=== PATIENT | female | born 1945 | race Caucasian/White ===

== ENCOUNTER 2023-06-19 10:58 | Outpatient (AMB) | payer MEDICARE, SELFPAY ==
[2023-06-19 11:08] VITALS: BP 124/70; BMI 15.1
--- NOTE | 2023-06-19 11:08 | A.OFFVIS_ITS ---
Intake Vital Signs 06/19/23 11:08 Height 5 ft 9 in Weight 102 lb 8 oz BMI 15.1 BP 124/70 Blood Pressure Location Rt brachial Position Sitting Intake Visit Reasons: ENP-Worsening Memory Loss-confirmed Intake Note: Patient presents for evaluation for memory loss Allergies No Known Allergies Allergy (Verified 06/19/23 11:09) Medication List - Last Reconciled 06/19/23 by Jelly Marcus MD alendronate 70 mg PO QWEEK aspirin 81 mg PO DAILY calcium carbonate 800 mg PO DAILY mirtazapine 7.5 mg PO BEDTIME simvastatin 10 mg PO BEDTIME HPI HPI Comments History of Present Illness Details 77y/o female comes for evaluation of memory issues. she is accompanied by her niece who says she has short term memory issues since 2019. She lives alone and her nephews have noticed that her mail was piling up. she was not paying bills, stopped cooking , confusion with dates, forgets to take medications. 1 year ago she gave her financial responsibilities to her nephew.She still drives. she has gotten lost a few times. she drives locally. she has trouble understanding conversations sometimes.she forgets to eat and has lost of weight. she has depression. [facility] Medical History (Updated 06/19/23 @ 11:45 by Jelly Marcus MD) Anxiety Chronic bronchitis CKD (chronic kidney disease) Cognitive disorder Depression Diverticulosis Hyperlipidemia Osteoporosis PVD (peripheral vascular disease) Smoker Thrombocytosis Surgical History Hx of colonoscopy Family History Sister CAD (coronary artery disease) Father Melanoma Myocardial infarct Brother CHF (congestive heart failure) COPD (chronic obstructive pulmonary disease) Social History Alcohol intake: never Patient Tobacco Use Status: Current everyday Tobacco user Physical Exam Vital Signs: Last Vital Signs BP 124/70 06/19/23 11:08 BMI result Body Mass Index 15.1 Const General: cooperative, comfortable and no acute distress Nutritional Appearance: thin Orientation/consciousness: oriented to person, oriented to place and oriented to time Neuro General: oriented to person, oriented to place, oriented to time, tone normal and moves all extremities Cranial nerves: Yes Facial sensation intact/muscles of mastication intact, Yes Nystagmus not present and Yes Normal facial strength present Cognition (Neuro): abnormal cognition Gait exam (Neuro): Normal gait present Motor exam (neuro): 5/5 motor strength present throughout and Normal motor muscle tone present throughout Deep tendon reflexes (DTR's): Right triceps reflex intensity grade: 1+, Left triceps reflex intensity grade: 1+, Rt Biceps (C5, C6): 2+, Left biceps reflex intensity grade: 2+, Right brachioradialis reflex intensity grade: 2+, Left brachioradialis reflex intensity grade: 2+, Right patellar reflex intensity grade: 2+ and Left patellar reflex intensity grade: 2+ Psych Affect: Anxious affect present Orientation What is the (year) (season) (date) (day) (month)?: year, season, date, day and month Where are we (state) (county) (town or city) (hospital) (floor)?: state, town or city and hospital/clinic Registration Name of 3 unrelated objects clearly and slowly, then ask patient to repeat all 3 of them. (1st repeat determines score. Make sure they can repeat all three): object 1, object 2 and object 3 Attention & Calculation (CHOOSE ONE) Spell WORLD backwards (DLROW): 1 letter Recall Ask patient to repeat the 3 items from question #3.: object 1 Language Show patient a wristwatch & ask what it is. Repeat for pencil.: watch and pencil Ask the patient to repeat the phrase 'No ifs, ands, or buts' after you.: correct Ask the patient to 'take a piece of paper with their right hand' 'fold paper in half' 'place paper on floor': take paper in right hand and fold paper in half Print the sentence 'CLOSE YOUR EYES' on a piece. If patient actually closes eyes then score.: followed written direction Give patient a blank piece of paper & ask to write a sentence. Score if it contains a noun & verb.: sentence contains subject and verb Score Score: 20 Assessment & Plan Assessment & Plan (1) Cognitive disorder: Comment: mild to moderate dementia Code(s): F09 - Unspecified mental disorder due to known physiological condition (2) Depression: Code(s): F32.A - Depression, unspecified (3) Anxiety: Code(s): F41.9 - Anxiety disorder, unspecified Plan Patient lives alone in a house- has meals on wheels and her closest relative lives 30 minutes away. SHe has neighbors that help her. she needs more support with transportation, medications etc. Home safety assessment it is not clear if she is taking her medications- needs supervision and better control of mood NO driving- patient is very anxious hearing that Niece will contact Senior services I will refer her to [facility] to evaluate for services. Labs - PCPs note mentions that the TSH Vit B 12 RPR ESR were normal MRI brain Orders: Orders MR head/brain wo con Today F09 - Unspecified mental disorder due to known physiological condition Referrals [facility] Referral F09 - Unspecified mental disorder due to known physiological condition Coding Level of Care Code New Pt Level 4 (50347) Diagnoses Cognitive disorder F09 Depression F32.A Anxiety F41.9
== END 2023-06-19 11:54 | disposition home or self-care (01) ==
PROVIDERS: PCP Internal Medicine; Visit Provider Psychiatry & Neurology Neurology
DX: F03.A3 Unspecified dementia, mild, with mood disturbance (principal); R41.89 Other symptoms and signs involving cognitive functions and awareness; F32.A Depression, unspecified; F41.9 Anxiety disorder, unspecified
CPT/HCPCS: 99204

== ENCOUNTER → 2023-06-19 10:58 | Outpatient (BNVA) | payer MEDICARE, SELFPAY | PROVIDERS: PCP Internal Medicine; Visit Provider Psychiatry & Neurology Neurology | DX: F09 Unspecified mental disorder due to known physiological condition (principal); F32.A Depression, unspecified; F41.9 Anxiety disorder, unspecified | CPT/HCPCS: 99202 ==

== ENCOUNTER 2023-08-24 10:48 | Outpatient (REF) | payer MEDICARE, SELFPAY ==
--- NOTE | ~2023-08-24 | MR_ITS ---
MRI OF THE BRAIN WITHOUT IV CONTRAST INDICATION: Mental disorder due to known physiologic condition. COMPARISON: None available. TECHNIQUE: Multiplanar multisequence MR imaging of the brain was obtained without IV contrast. FINDINGS: There is no hydrocephalus, extra-axial surface collection, or herniation. There is global cerebral volume loss and there is moderate chronic microangiopathy. The major flow voids at the skull base are preserved. There is no acute infarct on diffusion-weighted imaging. There is no intracranial hemorrhage on the gradient recalled echo acquisition. The midline structures are normal. The cerebellar tonsils are normally positioned. The cerebellum and brainstem are normal. The craniocervical junction is normal. Osseous marrow signal intensity is homogenous. The visualized soft tissues are unremarkable. Large left and moderate right mastoid effusions. MR/MR head/brain wo con IMPRESSION: - No acute intracranial findings. - There is global cerebral volume loss and there is moderate chronic microangiopathy. - Large left and moderate right mastoid effusions.
== END 2023-08-24 10:49 | disposition home or self-care (01) ==
LOC: HO.MRI 10:48
PROVIDERS: PCP Internal Medicine; Visit Provider Psychiatry & Neurology Neurology
DX: F09 Unspecified mental disorder due to known physiological condition (principal)
CPT/HCPCS: 70551

== ENCOUNTER 2023-09-01 08:26 | Outpatient (AMB) | payer MEDICARE, SELFPAY ==
--- NOTE | 2023-09-01 08:31 | MHC.OFFVIS ---
Intake Vital Signs 09/01/23 08:34 Weight 107 lb BP 112/72 Blood Pressure Location Lt brachial Position Sitting Intake Visit Reasons: 2m follow up Memory Loss-confirmed Intake Note: F/U memory loss Call Center Representative Required: No Allergies No Known Allergies Allergy (Verified 09/01/23 08:31) HPI HPI Comments History of Present Illness Details 77 y/o female comes for follow up of memory loss. She is accompanied by her niece who states that her memory has been declined, forgetting things and confusion dates, and taking medications. Pt lives alone, and her family members visit her takes care of her. Pt still drives locally, short distance. Pt's niece reports that she was evaluated by visiting nurse or home care but it irritated the patient and she did not like them to come. Pt still pretty upset about the home care or visiting nurse service. Pt thinks that she does not have problem with memory and her cognitive function. The brain MRI result was No acute intracranial findings. - There is global cerebral volume loss and there is moderate chronic microangiopathy. - Large left and moderate right mastoid effusions. PFSH Medical History Anxiety Cognitive disorder PVD (peripheral vascular disease) Chronic bronchitis Hyperlipidemia Diverticulosis Depression CKD (chronic kidney disease) Thrombocytosis Osteoporosis Smoker Surgical History Hx of colonoscopy Family History Sister CAD (coronary artery disease) Father Melanoma Myocardial infarct Brother CHF (congestive heart failure) COPD (chronic obstructive pulmonary disease) Social History (Updated 09/01/23 @ 08:33 by Karlee Cerna CMA) Alcohol intake: never Patient Tobacco Use Status: Current everyday Tobacco user Review of Systems Const All systems reviewed & are unremarkable except as noted in HPI and below ENT Reports Normal hearing present Neuro Reports Normal hearing present Physical Exam Vital Signs: Last Vital Signs BP 112/72 09/01/23 08:34 Const General: no acute distress and alert Nutritional Appearance: average body habitus Orientation/consciousness: oriented to person and oriented to place Resp Effort & Inspection: normal respiratory effort and able to speak in complete sentences Neuro General: oriented to person and oriented to place Cranial nerves: Yes Bilaterally intact EOM present, Yes Normal facial strength present, Yes Midline tongue present, Yes Symmetric palate elevation present, Yes Normal hearing present, Yes Ability to bilaterally rotate head present and Yes Ability to bilaterally elevate shoulders present Orientation What is the (year) (season) (date) (day) (month)?: season, day and month Where are we (state) (county) (town or city) (hospital) (floor)?: state, county, town or city and hospital/clinic Registration Name of 3 unrelated objects clearly and slowly, then ask patient to repeat all 3 of them. (1st repeat determines score. Make sure they can repeat all three): object 3 Attention & Calculation (CHOOSE ONE) Spell WORLD backwards (DLROW): 5 letters Language Show patient a wristwatch & ask what it is. Repeat for pencil.: watch and pencil Ask the patient to repeat the phrase 'No ifs, ands, or buts' after you.: correct Ask the patient to 'take a piece of paper with their right hand' 'fold paper in half' 'place paper on floor': take paper in right hand, fold paper in half and place paper on floor Print the sentence 'CLOSE YOUR EYES' on a piece. If patient actually closes eyes then score.: followed written direction Give patient a blank piece of paper & ask to write a sentence. Score if it contains a noun & verb.: sentence contains subject and verb Score Score: 21 Assessment & Plan Assessment & Plan (1) Cognitive disorder: Comment: mild to moderate dementia Code(s): F09 - Unspecified mental disorder due to known physiological condition (2) Depression: Code(s): F32.A - Depression, unspecified (3) Anxiety: Code(s): F41.9 - Anxiety disorder, unspecified Plan MMSE 21 today, poor clock drawing, not all numbers in correct position, could not draw hands. Advised not to drive- patient is very anxious hearing that. Niece will contact Senior services. Start donepezil 5 mg qHS. Medications: New donepezil 5 mg PO BEDTIME 30 days 30 tabs 3RF Coding Level of Care Code Est Pt Level 4 (17707) Diagnoses Cognitive disorder F09 Depression F32.A Anxiety F41.9
[2023-09-01 08:34] VITALS: BP 112/72
== END 2023-09-01 09:09 | disposition home or self-care (01) ==
PROVIDERS: PCP Internal Medicine; Visit Provider Nurse Practitioner Family
DX: F03.A4 Unspecified dementia, mild, with anxiety (principal); F32.A Depression, unspecified
CPT/HCPCS: 99214

== ENCOUNTER → 2023-09-01 08:26 | Outpatient (BNVA) | payer MEDICARE, SELFPAY | PROVIDERS: PCP Internal Medicine; Visit Provider Nurse Practitioner Family | DX: F09 Unspecified mental disorder due to known physiological condition (principal); F32.A Depression, unspecified; F41.9 Anxiety disorder, unspecified | CPT/HCPCS: 99212 ==

== ENCOUNTER 2024-01-04 09:38 | Outpatient (AMB) | payer MEDICARE, SELFPAY ==
--- NOTE | 2024-01-04 09:42 | A.OFFVIS_ITS ---
Intake Vital Signs 01/04/24 09:49 Height 5 ft 9 in Weight 97 lb 2 oz BMI 14.3 BP 120/82 Blood Pressure Location Lt brachial Position Sitting Pulse 76 Pulse Source Pulse Oximeter Pulse Oximetry (%) 96 Oxygen Delivery Method Room Air Intake Visit Reasons: 4 mo f/u [place] Memory loss - CONF w/address Intake Note: Patient presents for 4 month f/u. Allergies No Known Allergies Allergy (Verified 01/04/24 09:47) HPI HPI Comments History of Present Illness Details 78 y/o female comes for follow up of mem ory loss. She is accompanied by her niece who states that her memory is about the same, forgetting things and confusion dates, but denies memory issue. Pt lives alone, and her family members visit daily to take care of her. Pt's niece who is a nurse manages patient's medications. Pt states she drives locally, short distance. However, her niece reports patient does not drive anymore. Pt reports she forgets to have breakfast sometimes. Pt thinks that she does not have problem with memory and her cognitive function, and can be very upset if someone mention about her memory. Pt is on donepezil 5 mg qHS. She is independent ADLs but does not cook. She states that she sleeps well, physically and socially active. PFSH Medical History Anxiety Cognitive disorder PVD (peripheral vascular disease) Chronic bronchitis Hyperlipidemia Diverticulosis Depression CKD (chronic kidney disease) Thrombocytosis Osteoporosis Smoker Surgical History Hx of colonoscopy Family History Sister CAD (coronary artery disease) Father Melanoma Myocardial infarct Brother CHF (congestive heart failure) COPD (chronic obstructive pulmonary disease) Social History Alcohol intake: never Patient Tobacco Use Status: Current everyday Tobacco user Review of Systems Const All systems reviewed & are unremarkable except as noted in HPI and below ENT Reports Normal hearing present Neuro Reports Normal hearing present Physical Exam Vital Signs: Last Vital Signs Pulse 76 01/04/24 09:49 BP 120/82 01/04/24 09:49 Pulse Ox 96 01/04/24 09:49 Oxygen Delivery Method Room Air 01/04/24 09:49 BMI result Body Mass Index 14.3 Const General: no acute distress and alert Nutritional Appearance: average body habitus Orientation/consciousness: oriented to person and oriented to place Resp Effort & Inspection: normal respiratory effort and able to speak in complete sentences Neuro General: oriented to person and oriented to place Cranial nerves: Yes Bilaterally intact EOM present, Yes Normal facial strength present, Yes Midline tongue present, Yes Symmetric palate elevation present, Yes Normal hearing present, Yes Ability to bilaterally rotate head present and Yes Ability to bilaterally elevate shoulders present Psych Appearance: grossly normal Speech and movement: Normal speech and movement present Affect: Anxious affect present Assessment & Plan Assessment & Plan (1) Cognitive disorder: Comment: mild to moderate dementia Code(s): F09 - Unspecified mental disorder due to known physiological condition (2) Depression: Code(s): F32.A - Depression, unspecified (3) Anxiety: Code(s): F41.9 - Anxiety disorder, unspecified Plan Pt declined senior services, she was very upset. Increase donepezil 10 mg qHS. Medications: New donepezil 10 mg PO BEDTIME 90 days 90 tabs 1RF Discontinued donepezil Discontinued Reason: Doctor's Order 5 mg PO BEDTIME 30 days 30 tabs 3RF Coding Level of Care Code Est Pt Level 3 (72498) Diagnoses Cognitive disorder F09 Depression F32.A Anxiety F41.9
[2024-01-04 09:49] VITALS: BP 120/82; PULSE 76; O2SAT 96; BMI 14.3
== END 2024-01-04 10:12 | disposition home or self-care (01) ==
PROVIDERS: PCP Internal Medicine; Visit Provider Nurse Practitioner Family
DX: F03.A3 Unspecified dementia, mild, with mood disturbance (principal); F32.A Depression, unspecified; F41.9 Anxiety disorder, unspecified
CPT/HCPCS: 99213

== ENCOUNTER → 2024-01-04 09:38 | Outpatient (BNVA) | payer MEDICARE, SELFPAY | PROVIDERS: PCP Internal Medicine; Visit Provider Nurse Practitioner Family | DX: F09 Unspecified mental disorder due to known physiological condition (principal); F32.A Depression, unspecified; F41.9 Anxiety disorder, unspecified | CPT/HCPCS: 99212 ==

== ENCOUNTER 2024-07-17 11:36 | Outpatient (AMB) | payer MEDICARE, SELFPAY ==
--- NOTE | 2024-07-17 11:38 | MHC.OFFVIS ---
Intake Visit Reasons: f/u Worsening Memory loss Intake Note: Patient presents for memory loss Allergies No Known Allergies Allergy (Verified 07/17/24 11:38) Medication List - Last Reconciled 07/17/24 by VANESSA Velazquez alendronate 70 mg PO QWEEK aspirin 81 mg PO DAILY calcium carbonate 800 mg PO DAILY donepezil 10 mg PO BEDTIME 90 days mirtazapine 7.5 mg PO BEDTIME simvastatin 10 mg PO BEDTIME HPI Comments Details: 78--yr-old female presents for f/u visit for dementia. Pt is accompanied by her niece, Ailyn. Pt was last seen Dec 2023. Pt is agitated, confused, and mildly paranoid today, w/ mood fluctuations throughout visit. She walked around the room, at times, flipping her nieces hair or holding onto her niece's arm. Pt is unaware why she is here today. She does not think she has been here before. She does not recall who her niece is, states she has never seen her before. She then also says the niece has had varying problems her whole life. Pt denies having any current concerns. Denies pain. Denies issues w/ her memory. Pt does not want anyone talking about her. Per niece, pt has had increasing forgetfulness. However, todays behaviors are worse than usual. Some family members are more triggering than others. Pt does live hive alone. People check in with her. Donepazil was increased from 5 to 10mg but this caused diarrhea, so it was stopped. They were advised to retry at 5mg, but they did not have the 5mg tab anymore. She never tried Namenda d/t pt has only 1 kidney- though current kidney function WNL. PCP has ordered prn Atatrax- which they have used occass for doctor's appt's etc. Family has not noticed any s/s infection. PFSH Medical History Anxiety Cognitive disorder PVD (peripheral vascular disease) Chronic bronchitis Hyperlipidemia Diverticulosis Depression CKD (chronic kidney disease) Thrombocytosis Osteoporosis Smoker Surgical History Hx of colonoscopy Family History Sister CAD (coronary artery disease) Father Melanoma Myocardial infarct Brother CHF (congestive heart failure) COPD (chronic obstructive pulmonary disease) Social History Alcohol intake: never Patient Tobacco Use Status: Current everyday Tobacco user Physical Exam Const Other: Pt alert, verbal, disorienetd to person, place, time. Mood liability. Agitated w/ episodes of berating and then supportive/consoling her niece. HEENT Head: Yes normocephalic Resp Effort & Inspection: normal respiratory effort and able to speak in complete sentences Neuro Other: Eaxm limited as pt did not believe she was supposed to be seen here. General: gait normal Motor exam (neuro): 5/5 motor strength present throughout Assessment & Plan Assessment & Plan (1) Cognitive disorder: Comment: mild to moderate dementia Code(s): F09 - Unspecified mental disorder due to known physiological condition Category: Medical (2) Agitation: Code(s): R45.1 - Restlessness and agitation Category: Medical Plan Check labs urine. If unable to do blood work- pt will need ER efval. Advised if pt is a threat to herself or others to call 911. Hold Donepazil for now. Discussed trying low dose Namenda however family is hesitant to start this r/t advancing stage of dementia. May use Hydroxyzine prn. Future considerations- quetiapine. Orders: Orders Comprehensive Met. Panel Today D75.839 - Thrombocytosis, unspecified, F09 - Unspecified mental disorder due to known physiological condition, F41.9 - Anxiety disorder, unspecified, N18.9 - Chronic kidney disease, unspecified, R45.1 - Restlessness and agitation TSH reflex Free T4 Today D75.839 - Thrombocytosis, unspecified, F09 - Unspecified mental disorder due to known physiological condition, F41.9 - Anxiety disorder, unspecified, N18.9 - Chronic kidney disease, unspecified, R45.1 - Restlessness and agitation Folate Today D75.839 - Thrombocytosis, unspecified, F09 - Unspecified mental disorder due to known physiological condition, F41.9 - Anxiety disorder, unspecified, N18.9 - Chronic kidney disease, unspecified, R45.1 - Restlessness and agitation Complete Blood Count Auto Diff Today D75.839 - Thrombocytosis, unspecified, F09 - Unspecified mental disorder due to known physiological condition, F41.9 - Anxiety disorder, unspecified, N18.9 - Chronic kidney disease, unspecified, R45.1 - Restlessness and agitation UA CC w/rflx Micro + Cult Today N18.9 - Chronic kidney disease, unspecified, R30.0 - Dysuria Vitamin B12 and Folate Today D75.839 - Thrombocytosis, unspecified, F09 - Unspecified mental disorder due to known physiological condition, F41.9 - Anxiety disorder, unspecified, N18.9 - Chronic kidney disease, unspecified, R45.1 - Restlessness and agitation Erythrocyte Sedimentation Rate Today D75.839 - Thrombocytosis, unspecified, F09 - Unspecified mental disorder due to known physiological condition, F41.9 - Anxiety disorder, unspecified, N18.9 - Chronic kidney disease, unspecified, R45.1 - Restlessness and agitation CRP High Sensitivity Today D75.839 - Thrombocytosis, unspecified, F09 - Unspecified mental disorder due to known physiological condition, F41.9 - Anxiety disorder, unspecified, N18.9 - Chronic kidney disease, unspecified, R45.1 - Restlessness and agitation HIV Ab/Ag Today D75.839 - Thrombocytosis, unspecified, F09 - Unspecified mental disorder due to known physiological condition, F41.9 - Anxiety disorder, unspecified, N18.9 - Chronic kidney disease, unspecified, R45.1 - Restlessness and agitation Coding Level of Care Code Est Pt Level 4 (35312) Diagnoses Cognitive disorder F09 Agitation R45.1
== END 2024-07-17 12:20 | disposition home or self-care (01) ==
PROVIDERS: PCP Internal Medicine; Visit Provider Nurse Practitioner Family
DX: R41.89 Other symptoms and signs involving cognitive functions and awareness (principal); R45.1 Restlessness and agitation
CPT/HCPCS: 99214

== ENCOUNTER → 2024-07-17 11:36 | Outpatient (BNVA) | payer MEDICARE, SELFPAY | PROVIDERS: PCP Internal Medicine; Visit Provider Nurse Practitioner Family | DX: R45.1 Restlessness and agitation (principal); F09 Unspecified mental disorder due to known physiological condition; D75.839 Thrombocytosis, unspecified; N18.9 Chronic kidney disease, unspecified | CPT/HCPCS: 99212 ==

== ENCOUNTER 2024-08-29 09:47 | Outpatient (AMB) | payer MEDICARE, SELFPAY ==
--- NOTE | 2024-08-29 09:48 | MHC.OFFVISPS ---
Intake Intake Visit Reasons: consultation Remote Computer Terminal Operator Required: No Allergies No Known Allergies Allergy (Verified 07/17/24 11:38) Medication List - Last Reconciled 08/29/24 by Fiona Avila APRN alendronate 70 mg PO QWEEK aspirin 81 mg PO DAILY calcium carbonate 800 mg PO DAILY hydroxyzine HCl 10 mg PO BID lorazepam 0.5 mg PO BID PRN 30 days mirtazapine 7.5 mg PO BEDTIME simvastatin 10 mg PO BEDTIME HPI- Psychiatric Chief Complaint: consultation HPI Narrative: pt referred for evaluation of agitation due to dementia; pt is confused, irritable, doesn't know why she is here and then thinks she is here for her niece. pt is not oriented to date time, or situation. she is very forgetful, makes paranoid statements, she is accusatory with her niece saying that niece never helps her; pt believes her father is alive (but he is in fact ) Pt unable to cooperate with MOCA. she spontaneously says she is depressed, she is often sad, says she works all the time, helps everyone else and no one helps her. Pt niece Ailyn says that she has guardianship of patient, and she thinks there is a [place]'s order. Pt willl be moving to assisted living soon. Past Psychiatric History: evaluated by Neurology 2022 for dementia Subjective Subjective Subjective Medication Compliance: Yes Side effects from medications: No Review of Systems Medical Review of Systems: unchanged Mental Status Exam Mental Status Exam Patient Appearance: Appropriate Patient Orientation: Person Level of Consciousness: Awake, Appropriate and Restless Patient Behavior: Suspicious and Belligerent Mood Description: Suspicious, Depressed and Angry (irritable ) Affect Description: Depressed and Angry (irritable ) Ability to Follow Directions: Fair Speech Pattern: Clear and Long Pauses Memory Description: Intact Hallucinations: None Delusions: Not Present Thought Process: Illogical, Distracted and Confusion Thought Content: positive for Loose Associations and positive for Disorganized Judgement: Poor Assessment and Plan Assessment & Plan (1) Agitation due to dementia: Status: Acute Code(s): F03.911 - Unspecified dementia, unspecified severity, with agitation (2) Depression: Status: Acute Code(s): F32.A - Depression, unspecified (3) 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 Self Management counseling: Maintenance-social rhythm, Mod caffeine/ETOH intake, Sleep hygiene, Behavior activation, General coping skills and Problem solving Medication management counseling: Effectiveness, Side effects, Dosing range, Duration, Drug interaction and Adherence Diagnosis and Prognosis Counseling: Accuracy of diagnosis, Prognosis over time, Impact of diagnosis on life functions, Impact of family relationship, Problematic behaviors secondary to diagnosis and Adequacy of current interventions Details: I spent 75 minutes reviewing the record, seeing the patient and documenting in the medical record. Counseling provided to the patient/caregiver as outlined below. Addressed patient/caregiver concerns regarding current medication regime including effective adherence. Addressed patient/caregiver concerns regarding diagnosis and prognosis including accuracy of diagnosis, prognosis over time, impact of diagnosis. Addressed patient/caregiver concerns regarding impact of recent stressors. PFSH Medical History Anxiety Cognitive disorder PVD (peripheral vascular disease) Chronic bronchitis Hyperlipidemia Diverticulosis Depression CKD (chronic kidney disease) Thrombocytosis Osteoporosis Smoker Surgical History Hx of colonoscopy Family History Sister CAD (coronary artery disease) Father Melanoma Myocardial infarct Brother CHF (congestive heart failure) COPD (chronic obstructive pulmonary disease) Social History Alcohol intake: never Patient Tobacco Use Status: Current everyday Tobacco user Social History: pt is single woman no children lives alone at home and gets help from home health aid and family. she worked as an payroll accountant in past. 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
== END 2024-08-29 10:12 | disposition home or self-care (01) ==
LOC: HO.HOP 09:47
PROVIDERS: PCP Internal Medicine; Visit Provider Clinical Nurse Specialist Psychiatric/Mental Health
DX: F03.911 Unspecified dementia, unspecified severity, with agitation (principal); F32.A Depression, unspecified; F60.0 Paranoid personality disorder; F07.0 Personality change due to known physiological condition
CPT/HCPCS: 90792

== ENCOUNTER → 2024-08-29 09:47 | Outpatient (BNVA) | payer MEDICARE, SELFPAY | PROVIDERS: PCP Internal Medicine; Visit Provider Clinical Nurse Specialist Psychiatric/Mental Health | DX: F03.911 Unspecified dementia, unspecified severity, with agitation (principal); F32.A Depression, unspecified; F60.0 Paranoid personality disorder; F07.0 Personality change due to known physiological condition | CPT/HCPCS: 90792 ==

== ENCOUNTER 2024-09-10 12:51 | Inpatient (IN) | payer MEDICARE, SELFPAY ==
--- NOTE | 2024-09-10 12:56 | ED_ITS ---
HPI - General Adult General Chief complaint: Altered Mental Status Stated complaint: mental status Time Seen by Provider: 09/10/24 13:29 Related Data Home Medications ?Medication ?Instructions ?Recorded ?Confirmed aspirin 81 mg tablet,delayed 81 mg PO DAILY 06/19/23 09/10/24 release simvastatin 10 mg tablet 10 mg PO BEDTIME 06/19/23 09/10/24 hydroxyzine HCl 10 mg tablet 10 mg PO BEDTIME 08/29/24 09/10/24 acetaminophen 650 mg 650 mg PO DAILY PRN Pain 09/10/24 09/10/24 tablet,extended release Previous Rx's ?Medication ?Instructions ?Recorded lorazepam 0.5 mg tablet 0.5 mg PO BID PRN anxiety 30 days 07/26/24 #60 tabs cefuroxime axetil 250 mg tablet 250 mg PO BID #6 tabs 09/13/24 magnesium hydroxide 400 mg/5 mL 30 ml PO DAILY PRN Constipation 09/13/24 oral suspension (Milk of Magnesia) #30 mL mirtazapine 7.5 mg tablet 15 mg (2 x 7.5 mg) PO BEDTIME #30 09/13/24 tabs olanzapine 5 mg tablet 5 mg PO Q6H PRN agitation #30 tabs 09/13/24 risperidone 1 mg/mL oral solution 1 mg PO BID #60 mL 09/13/24 (Risperdal) Allergies Allergy/AdvReac Type Severity Reaction Status Date / Time No Known Allergies Allergy Verified 09/10/24 13:00 [facility] Past Medical History Medical History Anxiety Cognitive disorder PVD (peripheral vascular disease) Chronic bronchitis Hyperlipidemia Diverticulosis Depression CKD (chronic kidney disease) Thrombocytosis Osteoporosis Smoker Surgical History Hx of colonoscopy Family History Family History Sister CAD (coronary artery disease) Father Melanoma Myocardial infarct Brother CHF (congestive heart failure) COPD (chronic obstructive pulmonary disease) Social History Social History Household Members: None Housing: Unknown / Unable to assess Do you presently have visiting nurse or other home services: No (unable to answer) Unable to assess alcohol history related to: Unable to respond Alcohol intake: never Comment: 1:1 supervision changed to close observation today Patient Tobacco Use Status: Tobacco use Unknown Smoked in Last 30 Days: Yes Frequency of e-Cigarette/Vaping Use: unknown use Patient Interested in Nicotine Replacement: No (unable to answer) Patient Given Instructions on How to Stop Smoking: No Second Hand Smoke Exposure: No (lives alone) Use of substances other than those prescribed or required for medical reasons: No Currently Displaying Signs/Symptoms of Drug Intoxication Withdrawal: No Any prior treatment program specific to substance use: No Spiritual Healthcare Practices: Unable to answer due to mental status Hinduism Healthcare Practices: Unable to answer due to mental status Cultural Healthcare Practices: Unable to answer due to mental status Advance Directives: No Advance Directives Information Provided: No Do you have thoughts of harming others: None Do you have a plan to hurt others: No Plan Recently lost weight without trying: Unsure Eating poorly because of decreased appetite: No Patient : No : No Poor oral hygiene: No service: No Sexual orientation: Straight/Heterosexual Physical Exam ED Vital Signs: BMI result Body Mass Index 16.0 Course Course Course Narrative: This is a rapid medical exam performed by Veronika Montana NP: Additional HPI, ROS, PE not included below will be deferred to primary provider. Patient is a 78-year-old female with history of dementia, anxiety, agitation, cognitive disorder, CKD, PVD presenting to the emergency department with lizzyece who states that patient lives alone, has recently become obsessed with finding her father who 30 years ago. Patient was found by a neighbor at 2am outside looking for her father. Has part-time caretakers but niece feels she is no longer safe to live home alone. Has also been hitting her caregivers. Treated for a UTI in july, niece feels she should've had patient placed at that time, feels she needs a shiva psych assessment. Patient perseverating about her father in triage. Plan: labs, UA, viral serology Medications Administered Discontinued Medications Generic Name Dose Route Start Last Admin Trade Name Freq PRN Reason Stop Dose Admin Acetaminophen 650 mg 09/10/24 17:26 09/11/24 08:52 Acetaminophen 325 Mg Tablet PO 650 mg Q6H PRN Administration Pain, Mild (Pain Scale 1-3), fever or headache Aspirin 81 mg 09/11/24 09:00 09/13/24 09:30 Aspirin Enteric Coated 81 Mg Tablet.Dr PO 81 mg DAILY WILLIAM Administration Atorvastatin Calcium 10 mg 09/10/24 21:00 09/12/24 21:29 Atorvastatin Calcium 10 Mg Tablet PO 10 mg BEDTIME WILLIAM Administration Ceftriaxone Sodium 1 gm 09/10/24 15:00 09/10/24 15:19 Ceftriaxone Sodium 1 Gm Vial IM 1 gm ONCE WILLIAM Administration Ceftriaxone Sodium 1 gm 09/11/24 15:00 09/12/24 14:26 Ceftriaxone Sodium 1 Gm Vial IVPUSH 1 gm Q24H WILLIAM Administration Haloperidol Lactate 5 mg 09/10/24 19:40 09/10/24 21:42 Haloperidol Lactate 5 Mg/Ml Vial IM 09/10/24 19:41 Not Given STAT STA Hydroxyzine HCl 10 mg 09/10/24 21:00 09/10/24 21:43 Hydroxyzine Hcl 10 Mg Tablet PO Not Given BEDTIME WILLIAM Lorazepam 0.5 mg 09/10/24 17:27 09/12/24 14:24 Lorazepam 0.5 Mg Tablet PO 0.5 mg BID PRN Administration anxiety Melatonin 6 mg 09/10/24 17:26 09/12/24 21:32 Melatonin 3 Mg Tablet PO 6 mg BEDTIME PRN Administration Insomnia Mirtazapine 7.5 mg 09/10/24 21:00 09/10/24 21:43 Mirtazapine 7.5 Mg Tablet PO Not Given BEDTIME WILLIAM Mirtazapine 15 mg 09/11/24 21:00 09/12/24 21:29 Mirtazapine 15 Mg Tablet PO 15 mg BEDTIME WILLIAM Administration Nicotine 14 mg 09/11/24 14:00 09/13/24 09:30 Nicotine 14 Mg Patch.Td24 TRANSDERMA 14 mg DAILY WILLIAM Administration Olanzapine 5 mg 09/10/24 15:23 09/10/24 15:44 Olanzapine 5 Mg Tablet PO 09/10/24 15:24 5 mg ONCE ONE Administration Olanzapine 5 mg 09/11/24 14:57 09/12/24 06:09 Olanzapine 5 Mg Tablet PO 5 mg Q6H PRN Administration agitation Risperidone 0.5 mg 09/11/24 15:00 09/12/24 14:24 Risperidone Oral [place] 1 Mg/Ml Solution PO 0.5 mg TID WILLIAM Administration Risperidone 1 mg 09/12/24 21:00 09/13/24 09:29 Risperidone Oral [place]ettina 1 Mg/Ml Solution PO 1 mg BID WILLIAM Administration Sodium Chloride 3 ml 09/11/24 00:00 09/13/24 09:30 0.9 % Sodium Chloride Flush 3 Ml Syringe IVFLUSH 3 ml QSHIFT WILLIAM Administration Medical Decision Making Lab Data 09/10/24 13:56 09/10/24 13:56 Labs: Lab Results 09/10/24 Range/Units 13:56 WBC 6.9 (4.8-10.8) X10*3/uL RBC 4.65 (4.20-5.50) X10*6/uL Hgb 14.0 (12.0-16.0) g/dl Hct 43.4 (37.0-47.0) % MCV 93.3 (80.0-98.0) fL MCH 30.1 (27.0-33.0) pg MCHC 32.3 (31.0-35.0) g/dl RDW 12.5 (11.0-16.0) % Plt Count 423 H (160-400) X10*3/uL MPV 9.5 (9.4-12.3) fL Immature Gran % (Auto) 0.3 (0.0-0.4) % Neut % (Auto) 62.5 (45-73) % Lymph % (Auto) 26.5 (20-40) % [place] % (Auto) 8.9 (2-11) % Eos % (Auto) 1.2 (0-4) % Baso % (Auto) 0.6 (0-2) % Lymph # (Auto) 1.8 (1.2-4.9) X10*3/uL [place] # (Auto) 0.6 (0.1-1.2) X10*3/uL Eos # (Auto) 0.1 (0.0-0.4) X10*3/uL Baso # (Auto) 0.0 (0.0-0.2) X10*3/uL Abs Immat Gran (auto) 0.02 (0.00-0.03) X10*3/uL Absolute Neuts (auto) 4.3 (2.0-8.3) x10*3/uL Absolute Nucleated RBC 0.000 (0.0-0.012) X10*3/uL Nucleated RBC % (auto) 0.0 (0.0-0.2) /100WBC Sodium 143 (135-145) mmol/L Potassium 4.3 (3.3-5.1) mmol/L Chloride 109 H (96-108) mmol/L Carbon Dioxide 21 L (22-29) mmol/L Anion Gap 17 (12-20) BUN 14 (9-16) mg/dL Creatinine 0.80 (0.5-1.4) mg/dL Estim Creat Clear Calc 41.7 Estimated GFR > 60 Random Glucose 80 (60-115) mg/dL Calcium 9.5 (8.4-10.2) mg/dL Total Bilirubin 0.2 (0.0-1.0) mg/dL AST 32 H (5-31) U/L ALT 25 (0-31) U/L Alkaline Phosphatase 163 H (39-117) U/L Total Protein 7.6 (6.5-8.0) g/dL Albumin 4.0 (3.5-5.0) g/dL Urine Color Yellow Urine Appearance Cloudy Urine pH 5.5 (5.0-9.0) Ur Specific [place] 1.015 (1.005-1.025) Urine Protein Trace (Neg-Trace) mg/dL Urine Glucose (UA) Negative (Negative) mg/dL Urine Ketones Negative (Negative) mg/dL Urine Blood Negative (Negative) Urine Nitrite Positive H (Negative) Ur Leukocyte Esterase Moderate (2+) H (Negative) Urine RBC 0-2 (0-2) /HPF Urine WBC >50 H (0-5) /HPF Ur Squamous Epith Cells 0-2 (0-2) /HPF Urine Bacteria 4+ (None Seen) Hyaline Casts 0-2 (0-2) /LPF Urine Opiates Screen Not Detected (Not Detect) Ur Buprenorphine Scrn Not Detected (Not Detect) ng/mL Ur Oxycodone Screen Not Detected (Not Detect) ng/mL Urine Methadone Screen Not Detected (Not Detect) ng/mL Urine Fentanyl Screen Not Detected (Not Detect) Ur Barbiturates Screen Not Detected (Not Detect) Ur Phencyclidine Scrn Not Detected (Not Detect) Ur Amphetamines Screen Not Detected (Not Detect) U Benzodiazepines Scrn Not Detected (Not Detect) Urine Cocaine Screen Not Detected (Not Detect) U Marijuana (THC) Screen Not Detected (Not Detect) Ethyl Alcohol < 10 mg/dL Influenza Type A (PCR) NEGATIVE (Negative) Influenza Type B (PCR) NEGATIVE (Negative) RSV RNA Qual (PCR) NEGATIVE (Negative) SARS-CoV-2 RNA (RT-PCR) NEGATIVE (Negative) Discharge Plan Discharge Clinical Impression: Urinary tract infection, Agitation due to dementia Patient Disposition: Admitted As Inpatient Interventions: Admission Worksheet (ED) Last Done: 09/11/24 00:44 Discharge Date/Time: 09/11/24 01:40
[2024-09-10 12:58] VITALS: BP 143/83; PULSE 71; RESP 18; TEMP 36.8; O2SAT 98; BMI 16.0
--- NOTE | 2024-09-10 13:30 | ED_ITS ---
HPI - General Adult General Chief complaint: Altered Mental Status Stated complaint: mental status Time Seen by Provider: 09/10/24 13:29 Source: family Mode of arrival: ambulatory Limitations: other (History of dementia) History of Present Illness HPI narrative: This is a 78-year-old woman with a past medical history of hyperlipidemia, anxiety/depression, peripheral vascular disease, CKD, dementia who presents with family requesting care for the patient. Patient's history is limited due to her history of dementia. She provides no meaningful/linear history. She states her name. She follows simple commands and is able to answer yes/no questions. Related Data Home Medications ?Medication ?Instructions ?Recorded ?Confirmed alendronate 70 mg tablet 70 mg PO QWEEK 06/19/23 08/29/24 aspirin 81 mg tablet,delayed 81 mg PO DAILY 06/19/23 08/29/24 release calcium carbonate 800 mg PO DAILY 06/19/23 08/29/24 mirtazapine 7.5 mg tablet 7.5 mg PO BEDTIME 06/19/23 08/29/24 simvastatin 10 mg tablet 10 mg PO BEDTIME 06/19/23 08/29/24 hydroxyzine HCl 10 mg tablet 10 mg PO BID 08/29/24 08/29/24 Previous Rx's ?Medication ?Instructions ?Recorded lorazepam 0.5 mg tablet 0.5 mg PO BID PRN anxiety 30 days 07/26/24 #60 tabs Allergies Allergy/AdvReac Type Severity Reaction Status Date / Time No Known Allergies Allergy Verified 09/10/24 13:00 Review of Systems 2 Review of Systems: ROS as per HPI PMFSH Past Medical History Medical History Anxiety Cognitive disorder PVD (peripheral vascular disease) Chronic bronchitis Hyperlipidemia Diverticulosis Depression CKD (chronic kidney disease) Thrombocytosis Osteoporosis Smoker Surgical History Hx of colonoscopy Family History Family History Sister CAD (coronary artery disease) Father Melanoma Myocardial infarct Brother CHF (congestive heart failure) COPD (chronic obstructive pulmonary disease) Social History Social History Alcohol intake: never Patient Tobacco Use Status: Current everyday Tobacco user Advance Directives: No Advance Directives Information Provided: Yes Physical Exam ED Vital Signs: Vital Signs - 24 hr 09/10/24 12:58 Temperature 98.2 F Pulse Rate 71 Respiratory Rate 18 Blood Pressure 143/83 H Pulse Oximetry 98 Oxygen Delivery Method Room Air BMI result Body Mass Index 16.0 Gen: NAD, AOx1 (person) HEENT: NCAT, EOMI, normal conjunctiva CV: RRR Pulm: CTAB, no increased work of breathing GI: Soft, NTND, no rebound, guarding or rigidity Neuro: Grossly non focal, symmetrical face, moving all extremities spontaneously Medications Administered Generic Name Dose Route Start Last Admin Trade Name Freq PRN Reason Stop Dose Admin Ceftriaxone Sodium 1 gm 09/10/24 15:00 09/10/24 15:19 Ceftriaxone Sodium 1 Gm Vial IM 1 gm ONCE WILLIAM Administration Medical Decision Making Medical Decision Making [facility] Narrative: Differential diagnosis includes, but is not limited to dementia, urinary tract infection, electrolyte abnormality, acute kidney injury. Patient is afebrile and hemodynamically stable on room air. Exam is benign and reassuring. I reviewed labs and urinalysis as below. Patient is treated empirically for urinary tract infection with IM ceftriaxone. I considered CT imaging of the head, but there is no history of head trauma and exam as above demonstrates a normocephalic and atraumatic head. Further, per chart review of non-ED records with Psychiatry and Neurology the patient appears to be at her baseline orientation x1 (person). Thus, I do not think that CT imaging of the head is indicated at this time. I attempted to call patient's listed preferred phone at [phone], but was unable to reach any family via telephone. Given patient's slowly increasing agitation here in the emergency room over the last few hours requiring verbal deescalation and redirection often leaving the room, the patient is provided calming medication with 5 mg p.o. Zyprexa. I discussed the patient's case and management with admitting hospitalist, Dr. Santiago, and patient is admitted in stable and improved condition for further workup and management. Admission/Observation Consideration of admission/observation: Escalation of care including admission/observation considered Consult Healthcare Provider Management of the patient was discussed with: Hospitalist Lab Data [facility] Lab Attestation statement: I reviewed the patient's lab results. I independently reviewed and interpreted patient's CBC, BMP, urine drug screen, ethanol level and urinalysis. CBC is notable for thrombocytosis with platelet count 423. Metabolic panel is unremarkable. Urine drug screen and ethanol are unremarkable. Urinalysis is consistent with urinary tract infection given positive nitrite, white blood cells, leukocyte esterase, 4+ bacteria and 0-2 squamous epithelial cells. Patient has tested negative for COVID-19, influenza and RSV. 09/10/24 13:56 09/10/24 13:56 Labs: Lab Results 09/10/24 Range/Units 13:56 WBC 6.9 (4.8-10.8) X10*3/uL RBC 4.65 (4.20-5.50) X10*6/uL Hgb 14.0 (12.0-16.0) g/dl Hct 43.4 (37.0-47.0) % MCV 93.3 (80.0-98.0) fL MCH 30.1 (27.0-33.0) pg MCHC 32.3 (31.0-35.0) g/dl RDW 12.5 (11.0-16.0) % Plt Count 423 H (160-400) X10*3/uL MPV 9.5 (9.4-12.3) fL Immature Gran % (Auto) 0.3 (0.0-0.4) % Neut % (Auto) 62.5 (45-73) % Lymph % (Auto) 26.5 (20-40) % [place] % (Auto) 8.9 (2-11) % Eos % (Auto) 1.2 (0-4) % Baso % (Auto) 0.6 (0-2) % Lymph # (Auto) 1.8 (1.2-4.9) X10*3/uL [place] # (Auto) 0.6 (0.1-1.2) X10*3/uL Eos # (Auto) 0.1 (0.0-0.4) X10*3/uL Baso # (Auto) 0.0 (0.0-0.2) X10*3/uL Abs Immat Gran (auto) 0.02 (0.00-0.03) X10*3/uL Absolute Neuts (auto) 4.3 (2.0-8.3) x10*3/uL Absolute Nucleated RBC 0.000 (0.0-0.012) X10*3/uL Nucleated RBC % (auto) 0.0 (0.0-0.2) /100WBC Sodium 143 (135-145) mmol/L Potassium 4.3 (3.3-5.1) mmol/L Chloride 109 H (96-108) mmol/L Carbon Dioxide 21 L (22-29) mmol/L Anion Gap 17 (12-20) BUN 14 (9-16) mg/dL Creatinine 0.80 (0.5-1.4) mg/dL Estim Creat Clear Calc 41.7 Estimated GFR > 60 Random Glucose 80 (60-115) mg/dL Calcium 9.5 (8.4-10.2) mg/dL Total Bilirubin 0.2 (0.0-1.0) mg/dL AST 32 H (5-31) U/L ALT 25 (0-31) U/L Alkaline Phosphatase 163 H (39-117) U/L Total Protein 7.6 (6.5-8.0) g/dL Albumin 4.0 (3.5-5.0) g/dL Urine Color Yellow Urine Appearance Cloudy Urine pH 5.5 (5.0-9.0) Ur Specific [place] 1.015 (1.005-1.025) Urine Protein Trace (Neg-Trace) mg/dL Urine Glucose (UA) Negative (Negative) mg/dL Urine Ketones Negative (Negative) mg/dL Urine Blood Negative (Negative) Urine Nitrite Positive H (Negative) Ur Leukocyte Esterase Moderate (2+) H (Negative) Urine RBC 0-2 (0-2) /HPF Urine WBC >50 H (0-5) /HPF Ur Squamous Epith Cells 0-2 (0-2) /HPF Urine Bacteria 4+ (None Seen) Hyaline Casts 0-2 (0-2) /LPF Urine Opiates Screen Not Detected (Not Detect) Ur Buprenorphine Scrn Not Detected (Not Detect) ng/mL Ur Oxycodone Screen Not Detected (Not Detect) ng/mL Urine Methadone Screen Not Detected (Not Detect) ng/mL Urine Fentanyl Screen Not Detected (Not Detect) Ur Barbiturates Screen Not Detected (Not Detect) Ur Phencyclidine Scrn Not Detected (Not Detect) Ur Amphetamines Screen Not Detected (Not Detect) U Benzodiazepines Scrn Not Detected (Not Detect) Urine Cocaine Screen Not Detected (Not Detect) U Marijuana (THC) Screen Not Detected (Not Detect) Ethyl Alcohol < 10 mg/dL Influenza Type A (PCR) NEGATIVE (Negative) Influenza Type B (PCR) NEGATIVE (Negative) RSV RNA Qual (PCR) NEGATIVE (Negative) SARS-CoV-2 RNA (RT-PCR) NEGATIVE (Negative) Discharge Plan Discharge Clinical Impression: Urinary tract infection, Agitation due to dementia Patient Disposition: Admitted As Inpatient Prescriptions: No Action lorazepam 0.5 mg tablet 0.5 mg PO BID PRN (Reason: anxiety) 30 Days Qty: 60 1RF alendronate 70 mg tablet 70 mg PO QWEEK simvastatin 10 mg tablet 10 mg PO BEDTIME aspirin 81 mg tablet,delayed release (DR/EC) 81 mg PO DAILY mirtazapine 7.5 mg tablet 7.5 mg PO BEDTIME calcium carbonate 160 mg calcium (400 mg) tablet,chewable 800 mg PO DAILY hydroxyzine HCl 10 mg tablet 10 mg PO BID Print Language: Faroese
[2024-09-10 14:01] LABS: MANUAL DIFF FLAG NO
[2024-09-10 14:05] LABS: Basophils Percent Auto 0.6 % (0-2); Eosinophils Absolute Auto 0.1 X10*3/uL (0.0-0.4); Eosinophils Percent Auto 1.2 % (0-4); Hematocrit 43.4 % (37.0-47.0); Imm Gran Abs Auto 0.02 X10*3/uL (0.00-0.03); Imm Gran Pct Auto 0.3 % (0.0-0.4); Lymphocytes Absolute Auto 1.8 X10*3/uL (1.2-4.9); Lymphocytes Percent Auto 26.5 % (20-40); Mean Corpuscular HGB Conc 32.3 g/dl (31.0-35.0); Mean Corpuscular Hemoglobin 30.1 pg (27.0-33.0); Mean Corpuscular Volume 93.3 fL (80.0-98.0); Mean Platelet Volume 9.5 fL (9.4-12.3); Monocytes Absolute Auto 0.6 X10*3/uL (0.1-1.2); Monocytes Percent Auto 8.9 % (2-11); Neutrophils Absolute Auto 4.3 x10*3/uL (2.0-8.3); Neutrophils Percent Auto 62.5 % (45-73); Platelet Count 423 X10*3/uL (160-400); Red Blood Count 4.65 X10*6/uL (4.20-5.50); Red Cell Distribution Width 12.5 % (11.0-16.0); White Blood Count 6.9 X10*3/uL (4.8-10.8)
[2024-09-10 14:06] LABS: Appearance Urine Cloudy; Color Urine Yellow; Glucose Urine UA Negative (Negative); Leukocyte Esterase Urine Moderate (2+) (Negative); Nitrite Urine Positive (Negative); PH 5.5 (5.0-9.0); Specific Gravity - Urine 1.015 (1.005-1.025); UMIC TRIGGER UACC YES; Urine Blood Negative (Negative); Urine Ketones Negative (Negative); Urine Protein Trace mg/dL (Neg-Trace)
--- NOTE | 2024-09-10 14:13 | PC.NURSE ---
patient changed into hospital attire by ED staff and security, belongings are secured. patient has elopement band on and set up by ED charge nurse. patient seems to be worried about her father knowing where she is- father is . patient easily redirectable with snack and gingerale
[2024-09-10 14:14] LABS: Bacteria Urine 4+ (None Seen); Hyaline Casts Urine 0-2 /LPF (0-2); RBC Urine 0-2 /HPF (0-2); Squamous Epithelial Cell Urine 0-2 /HPF (0-2); UACC Culture Trigger YES; WBC Urine >50 /HPF (0-5)
[2024-09-10 14:28] LABS: Amphetamine Screen Urine Not Detected (Not Detect); Barbiturates, Urine Not Detected (Not Detect); Benzodiazepines Screen Urine Not Detected (Not Detect); Buprenorphine Scr Not Detected (Not Detect); Cannabinoid Screen Urine Not Detected (Not Detect); Cocaine Screen Urine Not Detected (Not Detect); Fentanyl, urine Not Detected (Not Detect); Methadone Screen, Urine Not Detected (Not Detect); Opiate Screen Urine Not Detected (Not Detect); Oxycodone Screen Urine Not Detected (Not Detect); Phencyclidine Screen Urine Not Detected (Not Detect)
[2024-09-10 14:29] LABS: Alanine Aminotransferase 25 U/L (0-31); Alkaline Phosphatase 163 U/L (39-117); Anion Gap 17 (12-20); Aspartate Amino Transferase 32 U/L (5-31); Bilirubin Total 0.2 mg/dL (0.0-1.0); Blood Urea Nitrogen 14 mg/dL (9-16); Calcium 9.5 mg/dL (8.4-10.2); Carbon Dioxide 21 mmol/L (22-29); Chloride 109 mmol/L (96-108); Creatinine Clr Calc Pharmacy 41.7; Estimated Glomerular Filt Rate > 60; Ethanol < 10 mg/dL; Glucose Random 80 mg/dL (60-115); Potassium 4.3 mmol/L (3.3-5.1); Sodium 143 mmol/L (135-145); Total Protein 7.6 g/dL (6.5-8.0)
[2024-09-10 15:07] LABS: Influenza A PCR NEGATIVE (Negative); Influenza B PCR NEGATIVE (Negative); Resp Syncy Virus RNA Qual PCR NEGATIVE (Negative); SARS COV2 PCR INHOUSE NEGATIVE (Negative)
[2024-09-10] MEDS: cefTRIAXone sodium 1 GM VIAL IM (15:19)
--- NOTE | 2024-09-10 15:40 | PC.NURSE ---
patient agitated, redirectable at times but not with tele sitter. RN at bedside with patient for easy redirection. patient medicated per JAN, given IM injection for abx per doctors order.
[2024-09-10] MEDS: OLANZapine 5 MG TABLET PO (15:44)
--- NOTE | 2024-09-10 16:11 | PC.NURSE ---
patient has sitter at bedside, patient sitting in bed, talking with sitter. patient given sandwich and chips. currently calm and cooperative
--- NOTE | 2024-09-10 16:53 | PHA.MEDREC ---
Pharmacy Consult ? Medication Reconciliation Pharmacy has completed the medication reconciliation. Spoke to patient's niece Ailyn via phone to confirm medication list. Patient is no longer taking alendronate, calcium nor donepezil. She is taking hydroxyzine 10 mg at bedtime and lorazepam 0.5 mg bid prn.
--- NOTE | 2024-09-10 17:16 | P.HPHOSP_ITS ---
History of Present Illness Date of Service: 09/10/24 Chief Complaint: Confusion 78-year-old female with advanced dementia who lives alone. She was brought to the emergency room to be evaluated for confusion patient has become increasingly more confused and reportedly was outside, wonder around 02:00 o'clock in the morning and was found by a neighbor she is confused and is not able to offer any meaningful story, refer to family members who have . Apparently the family is unable to afford a private care. Workup in the emergency room has revealed urinary tract infection for which she is prescribed ceftriaxone. Labs are otherwise unremarkable. Review of Systems 2 Review of Systems: Gen: no fever Resp: no sob, no cough CV: no chest, no RIVAS, no leg edema GI: No n/v, no abd pain Neuro: + confusion ON LICENSE OF [facility] Medical History Anxiety Cognitive disorder PVD (peripheral vascular disease) Chronic bronchitis Hyperlipidemia Diverticulosis Depression CKD (chronic kidney disease) Thrombocytosis Osteoporosis Smoker Family History Sister CAD (coronary artery disease) Father Melanoma Myocardial infarct Brother CHF (congestive heart failure) COPD (chronic obstructive pulmonary disease) Surgical History Hx of colonoscopy Social History Household Members: None Housing: Unknown / Unable to assess Do you presently have visiting nurse or other home services: No Unable to assess alcohol history related to: Unable to respond Alcohol intake: never Patient Tobacco Use Status: Tobacco use Unknown Smoked in Last 30 Days: No Use of substances other than those prescribed or required for medical reasons: No Currently Displaying Signs/Symptoms of Drug Intoxication Withdrawal: No Have you been hit, kicked, punched, or otherwise hurt by someone within the past year? If so, by whom?: No Do you feel safe in your current relationship?: No Current Relationship Is there a partner from a previous relationship who is making you feel unsafe now?: No Are you made to feel afraid or neglected: No Advance Directives: No Advance Directives Information Provided: Yes Do you have a plan to hurt others: No Plan Recently lost weight without trying: Unsure Nutrition Risks: No Nutritional Risk Patient : No : No Poor oral hygiene: No service: No Meds Allergies Allergy/AdvReac Type Severity Reaction Status Date / Time No Known Allergies Allergy Verified 09/10/24 13:00 Active Medications: Current Medications Ceftriaxone Sodium (Ceftriaxone Sodium 1 Gm Vial) 1 gm IM ONCE WILLIAM Last Admin: 09/10/24 15:19 Dose: 1 gm Home Medications ?Medication ?Instructions ?Recorded ?Confirmed ?Last Taken ?Type aspirin 81 mg tablet,delayed 81 mg PO DAILY 06/19/23 09/10/24 09/09/24 History release mirtazapine 7.5 mg tablet 7.5 mg PO BEDTIME 06/19/23 09/10/24 09/09/24 History simvastatin 10 mg tablet 10 mg PO BEDTIME 06/19/23 09/10/24 09/09/24 History hydroxyzine HCl 10 mg tablet 10 mg PO BEDTIME 08/29/24 09/10/24 09/09/24 History acetaminophen 650 mg 650 mg PO DAILY PRN Pain 09/10/24 09/10/24 09/10/24 History tablet,extended release Physical Exam 2 Vital Signs and Narrative: Vital Signs: Last Vital Signs Temp 98.2 F 09/10/24 12:58 Pulse 71 09/10/24 12:58 Resp 18 09/10/24 12:58 BP 143/83 H 09/10/24 12:58 Pulse Ox 98 09/10/24 12:58 O2 Del Method Room Air 09/10/24 12:58 BMI result Body Mass Index 16.0 Const: Other: General: Pleasantly confused., somehow cachectic Resp: CTA bilateral CVS: S1,S2,RRR GI: +BS, NT, no distention Skin: No rash Neuro: motor grossly intact Psych: appropriate affect Results Labs 09/10/24 13:56 09/10/24 13:56 Labs: Laboratory Results - last 24 hr 09/10/24 13:56 MCV 93.3 MCH 30.1 MCHC 32.3 RDW 12.5 Plt Count 423 H MPV 9.5 Immature Gran % (Auto) 0.3 Neut % (Auto) 62.5 Lymph % (Auto) 26.5 [place] % (Auto) 8.9 Eos % (Auto) 1.2 Baso % (Auto) 0.6 Lymph # (Auto) 1.8 [place] # (Auto) 0.6 Eos # (Auto) 0.1 Baso # (Auto) 0.0 Abs Immat Gran (auto) 0.02 Absolute Neuts (auto) 4.3 Absolute Nucleated RBC 0.000 Nucleated RBC % (auto) 0.0 Anion Gap 17 Estim Creat Clear Calc 41.7 Estimated GFR > 60 Random Glucose 80 Calcium 9.5 Total Bilirubin 0.2 AST 32 H ALT 25 Alkaline Phosphatase 163 H Total Protein 7.6 Albumin 4.0 Urine Color Yellow Urine Appearance Cloudy Urine pH 5.5 Ur Specific [place] 1.015 Urine Protein Trace Urine Glucose (UA) Negative Urine Ketones Negative Urine Blood Negative Urine Nitrite Positive H Ur Leukocyte Esterase Moderate (2+) H Urine RBC 0-2 Urine WBC >50 H Ur Squamous Epith Cells 0-2 Urine Bacteria 4+ Hyaline Casts 0-2 Urine Opiates Screen Not Detected Ur Buprenorphine Scrn Not Detected Ur Oxycodone Screen Not Detected Urine Methadone Screen Not Detected Urine Fentanyl Screen Not Detected Ur Barbiturates Screen Not Detected Ur Phencyclidine Scrn Not Detected Ur Amphetamines Screen Not Detected U Benzodiazepines Scrn Not Detected Urine Cocaine Screen Not Detected U Marijuana (THC) Screen Not Detected Ethyl Alcohol < 10 Influenza Type A (PCR) NEGATIVE Influenza Type B (PCR) NEGATIVE RSV RNA Qual (PCR) NEGATIVE SARS-CoV-2 RNA (RT-PCR) NEGATIVE Assessment and Plan (1) Depression: Status: Acute (2) Anxiety: Status: Acute (3) Agitation: Status: Acute (4) Hyperlipidemia: Status: Acute Plan 78 with dementia, hyperlipidemia presenting with altered mental status and found to have UTI, she is unable to care for herself. UTI with Metabolic encephalopathy -ceftriaxone 1 g daily, started on 09/10 Advanced dementia with behavior disturbance -sitter as needed -resume home medication -consider Psych consult Moderate protein calorie malnutrition -supplement full code dvt prophylaxis --heparin will try to reach to family Quality Stroke Does the patient have a stroke diagnosis?: No VTE Prior VTE?: No VTE Risk Level:: Medical - moderate - high VTE Device Contraindication: Treatment Not Indicated VTE Drug Contraindication: N/A - Med Ordered
[2024-09-10 17:26] VITALS: BP 131/46; PULSE 67; RESP 14; TEMP 36.4; O2SAT 95
[2024-09-10] MEDS: Melatonin 3 MG TABLET 6 MG PO (19:28)
[2024-09-10] MEDS: LORazepam 0.5 MG TABLET PO (19:28)
--- NOTE | 2024-09-10 19:54 | PC.NURSE ---
Pt is alert and confused. Increasingly agitated. Refusing PO meds. Demanding a phone to call her father. Unable to be redirected. [place] text sent to Dr. Gilbert as pt was adamant about taking PO meds and continues stating wanting to go home and calling her father. After numerous attempts to calm pt and redirect pt, pt agreed to take PO meds in order to decrease agitation. Warm blankets provided to pt. Video camera and 1:1 sitter at bedside for safety. Monitoring is ongoing.
[2024-09-10 20:45] VITALS: RESP 16
--- NOTE | 2024-09-10 21:29 | MHC.EDTECH ---
per Lakshmi RN, ok to hold off on vitals at this time as Pt is now calm/resting and was very agitated earlier. RR documented.
--- NOTE | 2024-09-10 21:39 | PC.NURSE ---
Pt is sleeping with video camera and sitter at the bedside. No apparent distress noted. Breaths are even regular and unlabored. Pt allowed to sleep with no interruptions. Monitoring is ongoing.
[2024-09-11] VITALS (7 sets, daily range): BP systolic 117–138; BP diastolic 57–63; PULSE 51–98; RESP 16–18; TEMP 36.4–37; O2SAT 96–99; BMI 16.0
--- NOTE | 2024-09-11 | ECG_ITS ---
Test Reason : qtc check Blood Pressure : / mmHG Vent. Rate : 054 BPM Atrial Rate : 054 BPM P-R Int : 138 ms QRS Dur : 072 ms QT Int : 442 ms P-R-T Axes : 075 057 085 degrees QTc Int : 419 ms Sinus bradycardia Otherwise normal ECG No previous ECGs available Referred By: Angeles Augustin Electronically Signed By:PIERRE MEHTA MD
--- NOTE | 2024-09-11 00:10 | MHC.EDTECH ---
This tech took over care of patient at 2300,patient is sleeping resp. rate WNL,per RN Lakshmi we will hold off on vitals at this time,1:1 sitter at bedside/camera in place for safety
[2024-09-11] MEDS: LORazepam 0.5 MG TABLET PO (08:52)
[2024-09-11] MEDS: Acetaminophen 325 MG TABLET 650 MG PO (08:52)
[2024-09-11] MEDS: Aspirin Enteric Coated 81 MG TABLET.DR PO (08:52)
[2024-09-11] MEDS: 0.9 % Sodium Chloride Flush 3 ML SYRINGE IVFLUSH ×3 (08:53→21:47)
--- NOTE | 2024-09-11 11:11 | MHC.CM.PN ---
Addendum entered by Kely Ambrosio 09/11/24 15:57: Copy of guardianship received via email, but copy was unclear, call placed to pts niece Ailyn to request a better copy, voicemail was left. Per psych provider, they will coordinate to transfer pt to [facility] once a bed is available, care team consult pending. Addendum entered by Kely Ambrosio 09/11/24 11:40: This CM received a phone call from Yocasta Bryson ([phone]) the liaison from [facility], she states that they had planned for the niece Ailyn to bring her here to be admitted to [facility] to be regulated and then they will accept her to [facility], hospitalist updated. Original Note: Pt with dx: advanced dementia, found outside by a neighbor wandering at 2am. CM intake completed with pts niece/guardian Ailyn. IMM 09/11, addressed with Ailyn. Per Ailyn, pt lives alone has been receiving [facility] and [facility], the family privately hired [employer], but cannot afford 29/05 care. Per Ailyn, they have been working to get her into [facility] [place] which [facility] an [facility]. [facility] did an intake with the pt but she was aggressive during the assessment, and Ailyn is concerned that they may need to work with the court to get permission to give her an anti-psychotic. Per Ailyn, they would like psych to evaluate pt while she is here. Copy of guardianship requested. No HCP. Hospitalist updated. PCP: Dr. Alvarez Kingsley
--- NOTE | 2024-09-11 12:06 | P.PNIM_ITS ---
Subjective Subjective Date of Service: 09/11/24 Interval History: f/u on uti and confusion remains confused but could be her baseline Physical Exam 2 Vital Signs: Vital Signs: Last Vital Signs Temp 98.2 F 09/11/24 11:20 Pulse 63 09/11/24 11:20 Resp 16 09/11/24 11:20 BP 133/63 09/11/24 11:20 Pulse Ox 99 09/11/24 11:20 O2 Del Method Room Air 09/11/24 11:20 BMI result Body Mass Index 16.0 Const: Other: General: pleasantly confused Resp: CTA bilateral CVS: S1,S2,RRR GI: +BS, NT, no distention Skin: No rash Neuro: motor grossly intact Psych: appropriate affect Objective Data Active Medications Acetaminophen (Acetaminophen 325 Mg Tablet) 650 mg PO Q6H PRN PRN Reason: Pain, Mild (Pain Scale 1-3), fever or headache Last Admin: 09/11/24 08:52 Dose: 650 mg Documented By: ZULEIKA Aspirin (Aspirin Enteric Coated 81 Mg Tablet.Dr) 81 mg PO DAILY [facility] Last Admin: 09/11/24 08:52 Dose: 81 mg Documented By: ZULEIKA Atorvastatin Calcium (Atorvastatin Calcium 10 Mg Tablet) 10 mg PO BEDTIME [facility] Last Admin: 09/10/24 21:43 Dose: Not Given Documented By: ELIZABETH Non-Admin Reason: Patient Asleep Calcium Carbonate (Calcium Carbonate 750 Mg Tab.Chew) 750 mg PO Q4H PRN PRN Reason: Heartburn Ceftriaxone Sodium (Ceftriaxone Sodium 1 Gm Vial) 1 gm IVPUSH Q24H [facility] Hydroxyzine HCl (Hydroxyzine Hcl 10 Mg Tablet) 10 mg PO BEDTIME [facility] Last Admin: 09/10/24 21:43 Dose: Not Given Documented By: ELIZABETH Non-Admin Reason: Patient Asleep Lorazepam (Lorazepam 0.5 Mg Tablet) 0.5 mg PO BID PRN PRN Reason: anxiety Last Admin: 09/11/24 08:52 Dose: 0.5 mg Documented By: ZULEIKA Magnesium Hydroxide (Milk Of Magnesia 30 Ml Oral.Susp) 30 ml PO DAILY PRN PRN Reason: Constipation Melatonin (Melatonin 3 Mg Tablet) 6 mg PO BEDTIME PRN PRN Reason: Insomnia Last Admin: 09/10/24 19:28 Dose: 6 mg Documented By: LUCY Mirtazapine (Mirtazapine 7.5 Mg Tablet) 7.5 mg PO BEDTIME [facility] Last Admin: 09/10/24 21:43 Dose: Not Given Documented By: ELIZABETH Non-Admin Reason: Patient Asleep Ondansetron HCl (Ondansetron Hcl 4 Mg/2 Ml Vial) 4 mg IVPUSH Q8H PRN PRN Reason: Nausea and Vomiting Polyethylene Glycol (Polyethylene Glycol 3350 17 Gm Powd.Pack) 17 gm PO DAILY PRN PRN Reason: Constipation Sodium Chloride (0.9 % Sodium Chloride Flush 3 Ml Syringe) 3 ml IVFLUSH QSHIFT [facility] Last Admin: 09/11/24 08:53 Dose: 3 ml Documented By: ZULEIKA Labs 09/10/24 13:56 09/10/24 13:56 Labs: Laboratory Results - last 24 hr 09/10/24 13:56 MCV 93.3 MCH 30.1 MCHC 32.3 RDW 12.5 Plt Count 423 H MPV 9.5 Immature Gran % (Auto) 0.3 Neut % (Auto) 62.5 Lymph % (Auto) 26.5 [place] % (Auto) 8.9 Eos % (Auto) 1.2 Baso % (Auto) 0.6 Lymph # (Auto) 1.8 [place] # (Auto) 0.6 Eos # (Auto) 0.1 Baso # (Auto) 0.0 Abs Immat Gran (auto) 0.02 Absolute Neuts (auto) 4.3 Absolute Nucleated RBC 0.000 Nucleated RBC % (auto) 0.0 Anion Gap 17 Estim Creat Clear Calc 41.7 Estimated GFR > 60 Random Glucose 80 Calcium 9.5 Total Bilirubin 0.2 AST 32 H ALT 25 Alkaline Phosphatase 163 H Total Protein 7.6 Albumin 4.0 Urine Color Yellow Urine Appearance Cloudy Urine pH 5.5 Ur Specific [place] 1.015 Urine Protein Trace Urine Glucose (UA) Negative Urine Ketones Negative Urine Blood Negative Urine Nitrite Positive H Ur Leukocyte Esterase Moderate (2+) H Urine RBC 0-2 Urine WBC >50 H Ur Squamous Epith Cells 0-2 Urine Bacteria 4+ Hyaline Casts 0-2 Urine Opiates Screen Not Detected Ur Buprenorphine Scrn Not Detected Ur Oxycodone Screen Not Detected Urine Methadone Screen Not Detected Urine Fentanyl Screen Not Detected Ur Barbiturates Screen Not Detected Ur Phencyclidine Scrn Not Detected Ur Amphetamines Screen Not Detected U Benzodiazepines Scrn Not Detected Urine Cocaine Screen Not Detected U Marijuana (THC) Screen Not Detected Ethyl Alcohol < 10 Influenza Type A (PCR) NEGATIVE Influenza Type B (PCR) NEGATIVE RSV RNA Qual (PCR) NEGATIVE SARS-CoV-2 RNA (RT-PCR) NEGATIVE Microbiology Microbiology Results: Microbiology 09/10/24 15:11 Urine Culture - Preliminary Urine clean catch - Clean Catch Midstream Gram negative sulema Assessment and Plan (1) Urinary tract infection: Status: Acute (2) Agitation: Status: Acute Plan 78 with dementia, hyperlipidemia presenting with altered mental status and found to have UTI, she is unable to care for herself. UTI with Metabolic encephalopathy -ceftriaxone 1 g daily, started on 09/10 Advanced dementia with behavior disturbance -sitter as needed -resume home medication -consider Psych consult Moderate protein calorie malnutrition -supplement full code dvt prophylaxis --heparin will try to reach to family Quality Stroke Does the patient have a stroke diagnosis?: No VTE Prior VTE?: No VTE Risk Level:: Medical - moderate - high VTE Device Contraindication: Treatment Not Indicated VTE Drug Contraindication: N/A - Med Ordered
--- NOTE | 2024-09-11 12:27 | MHC.CLN ---
NUTRITION CONSULT FOR MALNUTRITION. DIET=REGULAR. ADDING ENSURE TID TO INCREASE NUTRITIONAL INTAKE. SUPPLEMENT PROVIDES 1050 KCALS, 60 G PROTEIN. PATIENT WITH ADVANCED DEMENTIA AND LIVES ALONE. CONVERSING AT TIME OF VISIT BUT POOR HISTORIAN. HX POOR PO. NEEDS ENCOURAGEMENT TO EAT. QUALIFIES MODERATELY MALNOURISHED IN THE CONTEXT OF CHRONIC ILLNESS. MODERATE DEPLETION OF BODY FAT AND MUSCLE MASS. WEIGHT LOSS TREND X ONE YEAR, NOT SIGNIFICANT. FOLLOW FOR PO INTAKE AND PLAN OF CARE. SEE CLINICAL NUTRITION ASSESSMENT 09/11/24.
--- NOTE | 2024-09-11 14:09 | PM.PSYCN ---
History of Present Illness Date of Service: 09/11/2024 Chief Complaint: UTI, encephalopathy Reason for Consult: combative behaviors Requesting physician: Kings N[place]and Discussed with referring provider: Yes Sources of Information: patient interviewed, chart reviewed and crisis/core team assessment reviewed HPI Narrative: Ms. Wilder is a 78 year-old woman with hx of advanced dementia who has been living on her own. She was brought via EMS after neighbor found her wondering at 2am. In the ED, pt was not able to provide any meaningful information as she was not oriented to place, situation, month or year. She had seen psych provider, Jessica Avila on 08/29/24 noted then to be oriented only to self. In the ED, medical work up include cbc without leukocytosis, only noted to have thrombocytosis. CMP without electrolyte abnormality, BUN 14, Cr 0.80 with creatinine clearance of 41.7. AST mildly elevated at 32, with elevated alkaline phos. 163. UA does show UTI positive for nitrites, leukocytosis, elevated WBC. culture positive for gram negative sulema. Pt was started on ceftriaxone 1gm IM q24h. Psychiatry consulted due to combative behaviors. Pt was given oral olanzapine yesterday as she attempted to leave the hospital and was difficult to redirect. Pt is seen in her room. She is not oriented to place, situation, month or year. She walks by mirror in her room and is not able to tell who is the person in the mirror. She believes she has seen me before and knows me and thanks this conventional underwriter for coming to see her. She reports she wants a cigarette. She tells me she smokes and it has been very difficult to stop. This conventional underwriter tells her I can give her nicotine gum, but not a cigarette which she seemed open to try. She had some coffee. She tells me she is awaiting for a ride and asks where do I live and whether I can give her a ride. Pt calmer after explaining there is no ride yet scheduled and that she has to wait. Collateral information gathered from her niece, Ailyn who reports she is the guardian and will email or fax guardianship paperwork. She reports there is no louise's in place yet. Pt has not been on antipsychotic. Ailyn reports pt has not been oriented to place, situation, month or date for several months. Ailyn also reports pt at times paranoid and suspicious and combative with caregivers. Ailyn has been working with [facility] for placement in their locked memory unit. Past Psychiatric History: inpt: none. OP:Pt had seen Jessica Avila on 08/29/24 for medication recommendations. past medication trial: remeron, vistaril evaluated by Neurology 2022 for dementia Medical Evaluation Reviewed: Yes [facility] Medical History Anxiety Cognitive disorder PVD (peripheral vascular disease) Chronic bronchitis Hyperlipidemia Diverticulosis Depression CKD (chronic kidney disease) Thrombocytosis Osteoporosis Smoker Surgical History Hx of colonoscopy Social History: pt is single woman no children lives alone at home and gets help from home health aid and family. she worked as an senior tax accountant in past. Trauma History: none known Diagnostics Vital Signs (24Hr): Vital Signs - 24 hr 09/10/24 17:26 09/10/24 20:45 09/11/24 00:09 Temperature 97.6 F Pulse Rate 67 Respiratory Rate 14 16 16 Blood Pressure 131/46 L Pulse Oximetry 95 Oxygen Delivery Method Room Air 09/11/24 03:58 09/11/24 07:20 09/11/24 11:20 Temperature 98.0 F 98.2 F Pulse Rate 52 54 63 Respiratory Rate 18 18 16 Blood Pressure 120/58 L 135/61 133/63 Pulse Oximetry 98 96 99 Oxygen Delivery Method Room Air Room Air Room Air BMI result Body Mass Index 16.0 Labs 09/10/24 13:56 09/10/24 13:56 Labs: Laboratory Results - last 48 hr 09/10/24 13:56 WBC 6.9 RBC 4.65 Hgb 14.0 Hct 43.4 MCV 93.3 MCH 30.1 MCHC 32.3 RDW 12.5 Plt Count 423 H MPV 9.5 Immature Gran % (Auto) 0.3 Neut % (Auto) 62.5 Lymph % (Auto) 26.5 [place] % (Auto) 8.9 Eos % (Auto) 1.2 Baso % (Auto) 0.6 Lymph # (Auto) 1.8 [place] # (Auto) 0.6 Eos # (Auto) 0.1 Baso # (Auto) 0.0 Abs Immat Gran (auto) 0.02 Absolute Neuts (auto) 4.3 Absolute Nucleated RBC 0.000 Nucleated RBC % (auto) 0.0 Sodium 143 Potassium 4.3 Chloride 109 H Carbon Dioxide 21 L Anion Gap 17 BUN 14 Creatinine 0.80 Estim Creat Clear Calc 41.7 Estimated GFR > 60 Random Glucose 80 Calcium 9.5 Total Bilirubin 0.2 AST 32 H ALT 25 Alkaline Phosphatase 163 H Total Protein 7.6 Albumin 4.0 Urine Color Yellow Urine Appearance Cloudy Urine pH 5.5 Ur Specific [place] 1.015 Urine Protein Trace Urine Glucose (UA) Negative Urine Ketones Negative Urine Blood Negative Urine Nitrite Positive H Ur Leukocyte Esterase Moderate (2+) H Urine RBC 0-2 Urine WBC >50 H Ur Squamous Epith Cells 0-2 Urine Bacteria 4+ Hyaline Casts 0-2 Urine Opiates Screen Not Detected Ur Buprenorphine Scrn Not Detected Ur Oxycodone Screen Not Detected Urine Methadone Screen Not Detected Urine Fentanyl Screen Not Detected Ur Barbiturates Screen Not Detected Ur Phencyclidine Scrn Not Detected Ur Amphetamines Screen Not Detected U Benzodiazepines Scrn Not Detected Urine Cocaine Screen Not Detected U Marijuana (THC) Screen Not Detected Ethyl Alcohol < 10 Influenza Type A (PCR) NEGATIVE Influenza Type B (PCR) NEGATIVE RSV RNA Qual (PCR) NEGATIVE SARS-CoV-2 RNA (RT-PCR) NEGATIVE Mental Status Exam Mental Status Exam Narrative: Appearance: wearing hospital gown, thin, somewhat malnourished, in NAD behavior: friendly as she thinks she knows me Psychomotor: no agitation or retardation noted Speech: mostly, clear, difficulty finding words, some expressive aphasia noted, spontaneous TP: derailment, mild expresive aphasia TC: looking for a ride and a cigaret. Mood: good Affect: congruent SI: none HI: none Delusions: no overt delusional content, but confabulation VH/AH: none Insight/judgment: impaired x 2. Memory/cog: alert, oriented only to self, not to situation, month, year. severe inability to retain information, process information and understand information. Medications Medications Current Medications Acetaminophen (Acetaminophen 325 Mg Tablet) 650 mg PO Q6H PRN PRN Reason: Pain, Mild (Pain Scale 1-3), fever or headache Last Admin: 09/11/24 08:52 Dose: 650 mg Aspirin (Aspirin Enteric Coated 81 Mg Tablet.Dr) 81 mg PO DAILY [facility] Last Admin: 09/11/24 08:52 Dose: 81 mg Atorvastatin Calcium (Atorvastatin Calcium 10 Mg Tablet) 10 mg PO BEDTIME [facility] Last Admin: 09/10/24 21:43 Dose: Not Given Calcium Carbonate (Calcium Carbonate 750 Mg Tab.Chew) 750 mg PO Q4H PRN PRN Reason: Heartburn Ceftriaxone Sodium (Ceftriaxone Sodium 1 Gm Vial) 1 gm IVPUSH Q24H [facility] Hydroxyzine HCl (Hydroxyzine Hcl 10 Mg Tablet) 10 mg PO BEDTIME [facility] Last Admin: 09/10/24 21:43 Dose: Not Given Lorazepam (Lorazepam 0.5 Mg Tablet) 0.5 mg PO BID PRN PRN Reason: anxiety Last Admin: 09/11/24 08:52 Dose: 0.5 mg Magnesium Hydroxide (Milk Of Magnesia 30 Ml Oral.Susp) 30 ml PO DAILY PRN PRN Reason: Constipation Melatonin (Melatonin 3 Mg Tablet) 6 mg PO BEDTIME PRN PRN Reason: Insomnia Last Admin: 09/10/24 19:28 Dose: 6 mg Mirtazapine (Mirtazapine 7.5 Mg Tablet) 7.5 mg PO BEDTIME [facility]IAM Last Admin: 09/10/24 21:43 Dose: Not Given Nicotine (Nicotine 14 Mg Patch.Td24) 14 mg TRANSDERMA DAILY WILLIAM Ondansetron HCl (Ondansetron Hcl 4 Mg/2 Ml Vial) 4 mg IVPUSH Q8H PRN PRN Reason: Nausea and Vomiting Polyethylene Glycol (Polyethylene Glycol 3350 17 Gm Powd.Pack) 17 gm PO DAILY PRN PRN Reason: Constipation Sodium Chloride (0.9 % Sodium Chloride Flush 3 Ml Syringe) 3 ml IVFLUSH QSHIFT [facility] Last Admin: 09/11/24 08:53 Dose: 3 ml Allergies Allergies Allergy/AdvReac Type Severity Reaction Status Date / Time No Known Allergies Allergy Verified 09/10/24 13:00 Assessment & Plan Assessment & Plan (1) Major neurocognitive disorder due to Alzheimer's disease: Status: Acute Code(s): G30.9 - Alzheimer's disease, unspecified; F02.80 - Dementia in other diseases classified elsewhere, unspecified severity, without behavioral disturbance, psychotic disturbance, mood disturbance, and anxiety Plan Ms. Aly is a 78 year-old woman with advanced dementia, at this point, oriented only to self. She requires 24/7 supervision. She is NOT safe to return home on her own. Admitted for treatment of UTI. Psych consult for medication management of combative behaviors along with some paranoid delusions. Spoke with Ailyn, who reports she is the guardian- she is sending paperwork. No louise's for antipsychotic yet, but this conventional underwriter can complete treatment plan for antipsychotic. Given emergency of situation in that combative behaviors are increasing risks of harm to self or others, will try risperidone 0.5mg po TID. Discussed with Ailyn who is in agreement. Also discussed discontinuing atarax for sleep- avoid antihistamine medications as they increase confusion in setting of dementia. Will increase remeron for sleep- 15mg po qhs, but if ineffective can switch to trazodone and adjust dose. PLAN 1. start risperidone 0.5mg po TID, monitor EKG, maintain Qtc<500ms, K>4, Mg>2. Can use PRN olanzapine 5mg po/IM q6h prn agitation. 2. if combative behaviors worsen may need to consider [facility] admission prior to transition to memory unit at [facility]. Total time managing care of this patient today __45__ minutes.
[2024-09-11] MEDS: cefTRIAXone sodium 1 GM VIAL IVPUSH (14:13)
[2024-09-11] MEDS: Nicotine 14 MG PATCH.TD24 TRANSDERMA (14:13)
[2024-09-11] MEDS: risperiDONE Oral Sol 1 MG/ML SOLUTION 0.5 MG PO ×2 (15:21→21:39)
[2024-09-11] MEDS: Mirtazapine 15 MG TABLET PO (21:39)
[2024-09-11] MEDS: Atorvastatin Calcium 10 MG TABLET PO (21:39)
[2024-09-12] MEDS: OLANZapine 5 MG TABLET PO (06:09)
[2024-09-12 06:10] VITALS: BP 135/81; PULSE 79; RESP 18; TEMP 36.6; O2SAT 97
[2024-09-12] MEDS: risperiDONE Oral Sol 1 MG/ML SOLUTION 0.5 MG PO ×2 (08:54→14:24)
[2024-09-12] MEDS: 0.9 % Sodium Chloride Flush 3 ML SYRINGE IVFLUSH ×3 (08:55→21:30)
[2024-09-12] MEDS: Aspirin Enteric Coated 81 MG TABLET.DR PO (08:55)
[2024-09-12] MEDS: Nicotine 14 MG PATCH.TD24 TRANSDERMA (08:57)
--- NOTE | 2024-09-12 10:22 | HO.PM.IMPN ---
Subjective Subjective Date of Service: 09/12/24 Interval History: f/u on uti and confusion remains confused, but i think this is her baseline Review of Systems Gen: no fever Resp: no sob, no cough CV: no chest, no RIVAS, no leg edema GI: No n/v, no abd pain Neuro: + confusion Physical Exam Vital Signs: Vital Signs: Last Vital Signs Temp 97.8 F 09/12/24 06:10 Pulse 79 09/12/24 06:10 Resp 18 09/12/24 06:10 BP 135/81 09/12/24 06:10 Pulse Ox 97 09/12/24 06:10 O2 Del Method Room Air 09/12/24 06:10 BMI result Body Mass Index 16.0 Const: Other: General: pleasantly confused Resp: CTA bilateral CVS: S1,S2,RRR GI: +BS, NT, no distention Skin: No rash Neuro: motor grossly intact Psych: appropriate affect Objective Data Active Medications Acetaminophen (Acetaminophen 325 Mg Tablet) 650 mg PO Q6H PRN PRN Reason: Pain, Mild (Pain Scale 1-3), fever or headache Last Admin: 09/11/24 08:52 Dose: 650 mg Documented By: ZULEIKA Aspirin (Aspirin Enteric Coated 81 Mg Tablet.) 81 mg PO DAILY [facility] Last Admin: 09/12/24 08:55 Dose: 81 mg Documented By: LEN Atorvastatin Calcium (Atorvastatin Calcium 10 Mg Tablet) 10 mg PO BEDTIME [facility] Last Admin: 09/11/24 21:39 Dose: 10 mg Documented By: LYSZ Calcium Carbonate (Calcium Carbonate 750 Mg Tab.Chew) 750 mg PO Q4H PRN PRN Reason: Heartburn Ceftriaxone Sodium (Ceftriaxone Sodium 1 Gm Vial) 1 gm IVPUSH Q24H [facility] Last Admin: 09/11/24 14:13 Dose: 1 gm Documented By: ZULEIKA Lorazepam (Lorazepam 0.5 Mg Tablet) 0.5 mg PO BID PRN PRN Reason: anxiety Last Admin: 09/11/24 08:52 Dose: 0.5 mg Documented By: ZULEIKA Magnesium Hydroxide (Milk Of Magnesia 30 Ml Oral.Susp) 30 ml PO DAILY PRN PRN Reason: Constipation Melatonin (Melatonin 3 Mg Tablet) 6 mg PO BEDTIME PRN PRN Reason: Insomnia Last Admin: 09/10/24 19:28 Dose: 6 mg Documented By: LUCY Mirtazapine (Mirtazapine 15 Mg Tablet) 15 mg PO BEDTIME [facility] Last Admin: 09/11/24 21:39 Dose: 15 mg Documented By: MARIAJOSE Nicotine (Nicotine 14 Mg Patch.Td24) 14 mg TRANSDERMA DAILY [facility] Last Admin: 09/12/24 08:57 Dose: 14 mg Documented By: LEN Olanzapine (Olanzapine 5 Mg Tablet) 5 mg PO Q6H PRN PRN Reason: agitation Last Admin: 09/12/24 06:09 Dose: 5 mg Documented By: MARIAJOSE Ondansetron HCl (Ondansetron Hcl 4 Mg/2 Ml Vial) 4 mg IVPUSH Q8H PRN PRN Reason: Nausea and Vomiting Polyethylene Glycol (Polyethylene Glycol 3350 17 Gm Powd.Pack) 17 gm PO DAILY PRN PRN Reason: Constipation Risperidone (Risperidone Oral Bettina 1 Mg/Ml Solution) 0.5 mg PO TID [facility] Last Admin: 09/12/24 08:54 Dose: 0.5 mg Documented By: LEN Sodium Chloride (0.9 % Sodium Chloride Flush 3 Ml Syringe) 3 ml IVFLUSH QSHIFT [facility] Last Admin: 09/12/24 08:55 Dose: 3 ml Documented By: LEN Labs 09/10/24 13:56 09/10/24 13:56 Microbiology Microbiology Results: Microbiology 09/10/24 15:11 Urine Culture - Final Urine clean catch - Clean Catch Midstream Escherichia coli Assessment and Plan (1) Urinary tract infection: Status: Acute (2) Agitation: Status: Acute Plan 78 with dementia, hyperlipidemia presenting with altered mental status and found to have UTI, she is unable to care for herself. UTI with Metabolic encephalopathy -ceftriaxone 1 g daily, started on 09/10, treat for 3 days Advanced dementia with behavior disturbance -sitter as needed -consider Psych consult recommends 1. start risperidone 0.5mg po TID, monitor EKG, maintain Qtc<500ms, K>4, Mg>2. Can use PRN olanzapine 5mg po/IM q6h prn agitation. 2. if combative behaviors worsen may need to consider shiva psych admission prior to transition to memory unit at [facility]. Moderate protein calorie malnutrition -supplement full code dvt prophylaxis --heparin hcp invoked Quality Stroke Does the patient have a stroke diagnosis?: No VTE Prior VTE?: No VTE Risk Level:: Medical - moderate - high VTE Device Contraindication: Treatment Not Indicated VTE Drug Contraindication: N/A - Med Ordered
[2024-09-12 11:45] VITALS: BP 118/54; PULSE 75; RESP 18; TEMP 36.4; O2SAT 98
[2024-09-12] MEDS: LORazepam 0.5 MG TABLET PO (14:24)
[2024-09-12] MEDS: cefTRIAXone sodium 1 GM VIAL IVPUSH (14:26)
--- NOTE | 2024-09-12 15:27 | PM.PSYCN ---
History of Present Illness Date of Service: 09/12/2024 Chief Complaint: UTI, encephalopathy Discussed with referring provider: Yes Sources of Information: patient interviewed, chart reviewed and crisis/core team assessment reviewed HPI Narrative: Interim Hx: pt continues to present with intermittent combative behaviors. She is not oriented to situation, month, year. She is taking medications with much encouragement. Past Psychiatric History: inpt: none. OP:Pt had seen Jessica Avila on 08/29/24 for medication recommendations. past medication trial: remeron, vistaril evaluated by Neurology 2022 for dementia [facility] Medical History Anxiety Cognitive disorder PVD (peripheral vascular disease) Chronic bronchitis Hyperlipidemia Diverticulosis Depression CKD (chronic kidney disease) Thrombocytosis Osteoporosis Smoker Surgical History (Reviewed 01/04/24 @ 09:48 by Delphine Asher [facility]) Hx of colonoscopy Social History: pt is single woman no children lives alone at home and gets help from home health aid and family. she worked as an hedge fund accountant in past. Trauma History: none known Diagnostics Vital Signs (24Hr): Vital Signs - 24 hr 09/11/24 15:53 09/11/24 19:25 09/11/24 23:19 Temperature 98.6 F 97.6 F 97.7 F Pulse Rate 98 51 70 Respiratory Rate 16 18 16 Blood Pressure 138/62 117/57 L 138/60 Pulse Oximetry 98 97 98 Oxygen Delivery Method Room Air Room Air Room Air 09/12/24 06:10 09/12/24 11:45 Temperature 97.8 F 97.6 F Pulse Rate 79 75 Respiratory Rate 18 18 Blood Pressure 135/81 118/54 L Pulse Oximetry 97 98 Oxygen Delivery Method Room Air Room Air BMI result Body Mass Index 16.0 Labs 09/10/24 13:56 09/10/24 13:56 Mental Status Exam Mental Status Exam Narrative: Appearance: wearing hospital gown, thin, somewhat malnourished, in NAD behavior: friendly as she thinks she knows me Psychomotor: no agitation or retardation noted Speech: mostly, clear, difficulty finding words, some expressive aphasia noted, spontaneous TP: derailment, mild expresive aphasia TC: looking for a ride and a cigaret. Mood: good Affect: congruent SI: none HI: none Delusions: no overt delusional content, but confabulation VH/AH: none Insight/judgment: impaired x 2. Memory/cog: alert, oriented only to self, not to situation, month, year. severe inability to retain information, process information and understand information. Medications Medications Current Medications Acetaminophen (Acetaminophen 325 Mg Tablet) 650 mg PO Q6H PRN PRN Reason: Pain, Mild (Pain Scale 1-3), fever or headache Last Admin: 09/11/24 08:52 Dose: 650 mg Aspirin (Aspirin Enteric Coated 81 Mg Tablet.Dr) 81 mg PO DAILY [facility] Last Admin: 09/12/24 08:55 Dose: 81 mg Atorvastatin Calcium (Atorvastatin Calcium 10 Mg Tablet) 10 mg PO BEDTIME [facility] Last Admin: 09/11/24 21:39 Dose: 10 mg Calcium Carbonate (Calcium Carbonate 750 Mg Tab.Chew) 750 mg PO Q4H PRN PRN Reason: Heartburn Ceftriaxone Sodium (Ceftriaxone Sodium 1 Gm Vial) 1 gm IVPUSH Q24H [facility] Last Admin: 09/12/24 14:26 Dose: 1 gm Lorazepam (Lorazepam 0.5 Mg Tablet) 0.5 mg PO BID PRN PRN Reason: anxiety Last Admin: 09/12/24 14:24 Dose: 0.5 mg Magnesium Hydroxide (Milk Of Magnesia 30 Ml Oral.Susp) 30 ml PO DAILY PRN PRN Reason: Constipation Melatonin (Melatonin 3 Mg Tablet) 6 mg PO BEDTIME PRN PRN Reason: Insomnia Last Admin: 09/10/24 19:28 Dose: 6 mg Mirtazapine (Mirtazapine 15 Mg Tablet) 15 mg PO BEDTIME [facility] Last Admin: 09/11/24 21:39 Dose: 15 mg Nicotine (Nicotine 14 Mg Patch.Td24) 14 mg TRANSDERMA DAILY [facility] Last Admin: 09/12/24 08:57 Dose: 14 mg Olanzapine (Olanzapine 5 Mg Tablet) 5 mg PO Q6H PRN PRN Reason: agitation Last Admin: 09/12/24 06:09 Dose: 5 mg Ondansetron HCl (Ondansetron Hcl 4 Mg/2 Ml Vial) 4 mg IVPUSH Q8H PRN PRN Reason: Nausea and Vomiting Polyethylene Glycol (Polyethylene Glycol 3350 17 Gm Powd.Pack) 17 gm PO DAILY PRN PRN Reason: Constipation Risperidone (Risperidone Oral Bettina 1 Mg/Ml Solution) 0.5 mg PO TID [facility] Last Admin: 09/12/24 14:24 Dose: 0.5 mg Sodium Chloride (0.9 % Sodium Chloride Flush 3 Ml Syringe) 3 ml IVFLUSH QSHIFT [facility] Last Admin: 09/12/24 14:28 Dose: 3 ml Allergies Allergies Allergy/AdvReac Type Severity Reaction Status Date / Time No Known Allergies Allergy Verified 09/10/24 13:00 Assessment & Plan Assessment & Plan (1) Major neurocognitive disorder due to Alzheimer's disease: Status: Acute Code(s): G30.9 - Alzheimer's disease, unspecified; F02.80 - Dementia in other diseases classified elsewhere, unspecified severity, without behavioral disturbance, psychotic disturbance, mood disturbance, and anxiety Plan Ms. Aly is a 78 year-old woman with advanced dementia, at this point, oriented only to self. She requires 29/05 supervision. She is NOT safe to return home on her own. Admitted for treatment of UTI. Psych consult for medication management of combative behaviors along with some paranoid delusions. Spoke with Ailyn, who reports she is the guardian- she is sending paperwork. No louise's for antipsychotic yet, but this business writer can complete treatment plan for antipsychotic. Given emergency of situation in that combative behaviors are increasing risks of harm to self or others, will try risperidone 0.5mg po TID. Discussed with Ailyn who is in agreement. Also discussed discontinuing atarax for sleep- avoid antihistamine medications as they increase confusion in setting of dementia. Will increase remeron for sleep- 15mg po qhs, but if ineffective can switch to trazodone and adjust dose. PLAN 1. start risperidone 0.5mg po TID, monitor EKG, maintain Qtc<500ms, K>4, Mg>2. Can use PRN olanzapine 5mg po/IM q6h prn agitation. 2. if combative behaviors worsen may need to consider shiva psych admission prior to transition to memory unit at [facility]. Total time managing care of this patient today ____ minutes.
[2024-09-12 15:28] VITALS: BP 152/63; PULSE 93; RESP 20; TEMP 36.1
[2024-09-12 19:09] VITALS: BP 113/56; PULSE 66; RESP 18; TEMP 36.9; O2SAT 97
[2024-09-12] MEDS: Atorvastatin Calcium 10 MG TABLET PO (21:29)
[2024-09-12] MEDS: Mirtazapine 15 MG TABLET PO (21:29)
[2024-09-12] MEDS: risperiDONE Oral Sol 1 MG/ML SOLUTION PO (21:29)
[2024-09-12] MEDS: Melatonin 3 MG TABLET 6 MG PO (21:32)
[2024-09-13 04:00] VITALS: BP 134/62; PULSE 59; RESP 16; TEMP 36.2; O2SAT 97
[2024-09-13 07:49] VITALS: BP 121/55; PULSE 64; RESP 16; TEMP 36.6; O2SAT 96
[2024-09-13] MEDS: risperiDONE Oral Sol 1 MG/ML SOLUTION PO (09:29)
[2024-09-13] MEDS: Nicotine 14 MG PATCH.TD24 TRANSDERMA (09:30)
[2024-09-13] MEDS: Aspirin Enteric Coated 81 MG TABLET.DR PO (09:30)
[2024-09-13] MEDS: 0.9 % Sodium Chloride Flush 3 ML SYRINGE IVFLUSH (09:30)
--- NOTE | 2024-09-13 09:48 | MHC.CLN ---
F/U DIET=REGULAR. ENSURE TID TO INCREASE NUTRITIONAL INTAKE. SUPPLEMENT PROVIDES 1050 KCALS, 60 G PROTEIN. HX POOR PO. NEEDS ENCOURAGEMENT TO EAT. INTAKE ABOUT 50%. FOLLOW FOR PO INTAKE AND PLAN OF CARE.
--- NOTE | 2024-09-13 10:37 | P.PNIM_ITS ---
Subjective Subjective Date of Service: 09/13/24 Interval History: f/u on uti and confusion remains confused, but i think this is her baseline Physical Exam 2 Vital Signs: Vital Signs: Last Vital Signs Temp 97.9 F 09/13/24 07:49 Pulse 64 09/13/24 07:49 Resp 16 09/13/24 07:49 BP 121/55 L 09/13/24 07:49 Pulse Ox 96 09/13/24 07:49 O2 Del Method Room Air 09/13/24 07:49 BMI result Body Mass Index 16.0 Objective Data Active Medications Acetaminophen (Acetaminophen 325 Mg Tablet) 650 mg PO Q6H PRN PRN Reason: Pain, Mild (Pain Scale 1-3), fever or headache Last Admin: 09/11/24 08:52 Dose: 650 mg Documented By: ZULEIKA Aspirin (Aspirin Enteric Coated 81 Mg Tablet.) 81 mg PO DAILY [facility] Last Admin: 09/13/24 09:30 Dose: 81 mg Documented By: LEN Atorvastatin Calcium (Atorvastatin Calcium 10 Mg Tablet) 10 mg PO BEDTIME [facility] Last Admin: 09/12/24 21:29 Dose: 10 mg Documented By: DRAGAN Calcium Carbonate (Calcium Carbonate 750 Mg Tab.Chew) 750 mg PO Q4H PRN PRN Reason: Heartburn Ceftriaxone Sodium (Ceftriaxone Sodium 1 Gm Vial) 1 gm IVPUSH Q24H [facility] Last Admin: 09/12/24 14:26 Dose: 1 gm Documented By: LEN Lorazepam (Lorazepam 0.5 Mg Tablet) 0.5 mg PO BID PRN PRN Reason: anxiety Last Admin: 09/12/24 14:24 Dose: 0.5 mg Documented By: LEN Magnesium Hydroxide (Milk Of Magnesia 30 Ml Oral.Susp) 30 ml PO DAILY PRN PRN Reason: Constipation Melatonin (Melatonin 3 Mg Tablet) 6 mg PO BEDTIME PRN PRN Reason: Insomnia Last Admin: 09/12/24 21:32 Dose: 6 mg Documented By: DRAGAN Mirtazapine (Mirtazapine 15 Mg Tablet) 15 mg PO BEDTIME [facility] Last Admin: 09/12/24 21:29 Dose: 15 mg Documented By: DRAGAN Nicotine (Nicotine 14 Mg Patch.Td24) 14 mg TRANSDERMA DAILY [facility] Last Admin: 09/13/24 09:30 Dose: 14 mg Documented By: LEN Olanzapine (Olanzapine 5 Mg Tablet) 5 mg PO Q6H PRN PRN Reason: agitation Last Admin: 09/12/24 06:09 Dose: 5 mg Documented By: MARIAJOSE Ondansetron HCl (Ondansetron Hcl 4 Mg/2 Ml Vial) 4 mg IVPUSH Q8H PRN PRN Reason: Nausea and Vomiting Polyethylene Glycol (Polyethylene Glycol 3350 17 Gm Powd.Pack) 17 gm PO DAILY PRN PRN Reason: Constipation Risperidone (Risperidone Oral Bettina 1 Mg/Ml Solution) 1 mg PO BID [facility] Last Admin: 09/13/24 09:29 Dose: 1 mg Documented By: LEN Sodium Chloride (0.9 % Sodium Chloride Flush 3 Ml Syringe) 3 ml IVFLUSH QSHIFT [facility] Last Admin: 09/13/24 09:30 Dose: 3 ml Documented By: LEN Labs 09/10/24 13:56 09/10/24 13:56 Microbiology Microbiology Results: Microbiology 09/10/24 15:11 Urine Culture - Final Urine clean catch - Clean Catch Midstream Escherichia coli Assessment and Plan (1) Urinary tract infection: Status: Acute (2) Agitation: Status: Acute Plan 78 with dementia, hyperlipidemia presenting with altered mental status and found to have UTI, she is unable to care for herself. UTI with Metabolic encephalopathy -ceftriaxone 1 g daily, started on 09/10, treat for 3 days, then ceftin for 2 days Advanced dementia with behavior disturbance -sitter as needed -consider Psych consult recommends 1. start risperidone 0.5mg po TID, monitor EKG, maintain Qtc<500ms, K>4, Mg>2. Can use PRN olanzapine 5mg po/IM q6h prn agitation. 2. if combative behaviors worsen may need to consider shiva psych admission prior to transition to memory unit at [facility]. Moderate protein calorie malnutrition -supplement full code dvt prophylaxis --heparin hcp invoked Awaiting a shiva psych admission Quality Stroke Does the patient have a stroke diagnosis?: No VTE Prior VTE?: No VTE Risk Level:: Medical - moderate - high VTE Device Contraindication: Treatment Not Indicated VTE Drug Contraindication: N/A - Med Ordered
--- NOTE | 2024-09-13 11:06 | P.DS_ITS ---
DS: Providers Provider Date of Service: 09/13/24 Date of admission: 09/10/24 17:26 Primary care physician: Alvarez Kingsley MD Consults: 09/10/24 15:32 Consult for Sitter Routine Reason for consultation: requiring redirection 09/10/24 17:27 Consult for Sitter Routine Reason for consultation: agitation, flight risk Has provider been notified: Yes 09/11/24 12:12 Consult to Psychiatry Routine Consulting Provider: Psych Covering Reason for consultation: dimentia with agitation, 09/11/24 15:23 Consult to Care Team Routine Comment: Reason for consultation: dimentia with behavior, for [facility] DS: Diagnosis Discharge Diagnosis (1) Urinary tract infection: Status: Acute (2) Agitation: Status: Acute DS: Summary Hospital Course Hospital Course: admission hpi Chief Complaint: Confusion 78-year-old female with advanced dementia who lives alone. She was brought to the emergency room to be evaluated for confusion patient has become increasingly more confused and reportedly was outside, [place] around 02:00 o'clock in the morning and was found by a neighbor she is confused and is not able to offer any meaningful story, refer to family members who have . Apparently the family is unable to afford a private care. Workup in the emergency room has revealed urinary tract infection for which she is prescribed ceftriaxone. Labs are otherwise unremarkable. hospital course: The patient, who has advanced dementia, was brought in due to increasing agitation and wandering outside the house at night. She was diagnosed with a UTI caused by *E. coli*, which is being treated. The patient has been evaluated by Psychiatry, resulting in medication adjustments and recommendations to manage her behavior. The ultimate goal is to stabilize her condition for admission to a memory care unit. She will be admitted to the GeriPsych unit for further medication adjustments before transitioning to permanent placement in a memory unit. Her UTI has been treated with IV ceftriaxone, which will be transitioned to oral Ceftin to complete a total course of therapy. Psychiatric medication adjustments include increasing mirtazapine (Remeron) to 15 mg at bedtime, adding risperidone 1 mg twice daily, and prescribing olanzapine 5 mg every 6 hours as needed for agitation. Time Attestation Discharge Coordination Time (in mins): 35 Quality: Safe Use of Opioids Does Pt have an Active Cancer Diagnosis on the Problem List?: No Quality: Stroke Does the patient have a stroke diagnosis?: No Physical Exam Vital Signs: Vital Signs: Last Vital Signs Temp 97.9 F 09/13/24 07:49 Pulse 64 09/13/24 07:49 Resp 16 09/13/24 07:49 BP 121/55 L 09/13/24 07:49 Pulse Ox 96 09/13/24 07:49 O2 Del Method Room Air 09/13/24 07:49 BMI result Body Mass Index 16.0 Discharge Plan Discharge Anticipated Discharge Date/Time: 09/13/24 11:01 Patient Disposition: Xfer Psychiatric Hosp Discharge Diagnosis: dementia with behavior issues Referrals: Alvarez Kingsley MD [Primary Care Provider] - 1 Week Discharge Medications: New magnesium hydroxide [Milk of Magnesia] 400 mg/5 mL Suspension 30 ml PO DAILY PRN (Reason: Constipation) Qty: 30 0RF risperidone [Risperdal] 1 mg/mL Solution 1 mg PO BID Qty: 60 0RF cefuroxime axetil 250 mg tablet 250 mg PO BID Qty: 6 0RF olanzapine 5 mg Tablet 5 mg PO Q6H PRN (Reason: agitation) Qty: 30 0RF Continued lorazepam 0.5 mg tablet 0.5 mg PO BID PRN (Reason: anxiety) 30 Days Qty: 60 1RF acetaminophen 650 mg Tablet Extended Release 650 mg PO DAILY PRN (Reason: Pain) simvastatin 10 mg tablet 10 mg PO BEDTIME aspirin 81 mg tablet,delayed release (DR/EC) 81 mg PO DAILY hydroxyzine HCl 10 mg tablet 10 mg PO BEDTIME Changed mirtazapine 7.5 mg tablet 15 mg PO BEDTIME Qty: 30 0RF Diet: Advance to usual diet Activity on Discharge: As tolerated Stand Alone Forms: Patient Portal Discharge page Print Language: [place] Care Plan Goals: behavioral management in light of dementia Health Concerns: Advanced dementia with behavior disturbance uti Patient Instructions: Urinary Tract Infection in Older Adults (GEN)
== END 2024-09-13 15:05 | DRG 689 ==
LOC: HO.ED 15:31 → HO.EDOVER 17:37 → HO.S3 09-11 00:21
PROVIDERS: Registered Nurse Emergency; Admitting Provider Internal Medicine; Emergency Provider Emergency Medicine; PCP Internal Medicine; Visit Provider Internal Medicine
DX: N39.0 Urinary tract infection, site not specified (principal); G93.41 Metabolic encephalopathy; E44.0 Moderate protein-calorie malnutrition; Z68.1 Body mass index [BMI] 19.9 or less, adult; F02.818 Dementia in other diseases classified elsewhere, unspecified severity, with other behavioral disturbance; G30.9 Alzheimer's disease, unspecified; B96.20 Unspecified Escherichia coli [E. coli] as the cause of diseases classified elsewhere; Z20.822 Contact with and (suspected) exposure to COVID-19; Z79.82 Long term (current) use of aspirin; Z79.899 Other long term (current) drug therapy
CPT/HCPCS: 0241U; 80053; 80307; 81001; 85025; 87086; 87088; 87186; 93005; 99285; J0696; S9485

== ENCOUNTER 2024-09-10 17:26 | Outpatient (BNV) | payer MEDICARE, SELFPAY | END 2024-09-11 15:10 | PROVIDERS: Admitting Provider Internal Medicine; Emergency Provider Emergency Medicine; PCP Internal Medicine; Visit Provider Internal Medicine Cardiovascular Disease | DX: R00.1 Bradycardia, unspecified (principal) | CPT/HCPCS: 93010 ==

== ENCOUNTER → 2024-09-10 17:26 | Outpatient (BNV) | payer MEDICARE, SELFPAY | PROVIDERS: Admitting Provider Internal Medicine; Emergency Provider Emergency Medicine; PCP Internal Medicine; Visit Provider Social Worker | DX: G30.9 Alzheimer's disease, unspecified (principal); F02.80 Dementia in other diseases classified elsewhere, unspecified severity, without behavioral disturbance, psychotic disturbance, mood disturbance, and anxiety | CPT/HCPCS: 99232 ==

== ENCOUNTER → 2024-09-10 17:26 | Outpatient (BNV) | payer MEDICARE, SELFPAY | PROVIDERS: Admitting Provider Internal Medicine; Emergency Provider Emergency Medicine; PCP Internal Medicine; Visit Provider Internal Medicine | DX: N39.0 Urinary tract infection, site not specified (principal); G93.41 Metabolic encephalopathy; E44.0 Moderate protein-calorie malnutrition | CPT/HCPCS: 99223; 99232 ==

== ENCOUNTER 2024-09-13 15:16 | Inpatient (IN) | payer MEDICARE, SELFPAY ==
--- NOTE | 2024-09-13 18:21 | PC.ADMIT ---
Pt. arrived on unit at 15:45 via wheelchair accompanied by 2 SQL PROGRAMMER staff from medical floor. Pt. hyperverbal and uncooperative with changeover and skin assmt. but eventually complied. Contraband search conducted with no findings. Skin dry and peeling. Redness noted to LLE, warm to touch but not raised. Superficial scratches to RUE. Feet calloused. Pt. A & O to self only. Noted to be self dialoging, speaking to herself in the third person. Pt. oriented to room and unit. Ambulates independently with steady gait. Pt. unable to participate in admission process due to mental status. Unable to report if she has received a flu vaccine this year, but declining to receive one now. Pt. had been living in her own home independently, with support from a family member, but had been found outside wandering in the middle of the night and was brought to the ED by her family member, where she was admitted and treated for a UTI. Pt. is now medically cleared and transferred to this unit for continued treatment.
[2024-09-13 20:00] VITALS: BP 134/60; PULSE 68; RESP 16; TEMP 36.6; O2SAT 95
[2024-09-13] MEDS: Atorvastatin Calcium 10 MG TABLET PO (21:47)
[2024-09-13] MEDS: OLANZapine 5 MG TABLET PO (21:47)
[2024-09-13] MEDS: cefuroxime axetiL 250 MG TABLET PO (21:48)
[2024-09-13] MEDS: Mirtazapine 15 MG TABLET PO (21:48)
[2024-09-14] MEDS: cefuroxime axetiL 250 MG TABLET PO ×2 (06:10→18:07)
--- NOTE | 2024-09-14 06:40 | P.HPPS_ITS ---
HPI Date of Service: 09/14/24 Chief Complaint: Dementia Sources of Information: patient interviewed, chart reviewed and crisis/core team assessment reviewed HPI Subjective Notes: Section 12B Guardianship: Yes Narrative: Ms. Wilder is a 78 year-old woman with hx of advanced dementia who has been living on her own. She was brought via EMS after neighbor found her wondering at 2am. In the ED, pt was not able to provide any meaningful information as she was not oriented to place, situation, month or year. She had seen psych provider, Jessica Avila on 08/29/24 noted then to be oriented only to self. In the ED, medical work up include cbc without leukocytosis, only noted to have thrombocytosis. CMP without electrolyte abnormality, BUN 14, Cr 0.80 with creatinine clearance of 41.7. AST mildly elevated at 32, with elevated alkaline phos. 163. UA does show UTI positive for nitrites, leukocytosis, elevated WBC. culture positive for gram negative sulema. Pt was started on ceftriaxone 1gm IM q24h. She continues on oral ceftin. On the unit, pt continues to present as not oriented to place, situation, month or year. She is anxious seems related to not knowing wha is going on or where she is. She ambulates on her own. She has to be offered food and be reminded to eat. Collateral information gathered from her niece, Ailyn who reports she is the guardian and will email or fax guardianship paperwork. She reports there is no louise's in place yet. Pt has not been on antipsychotic. Ailyn reports pt has not been oriented to place, situation, month or date for several months. Ailyn also reports pt at times paranoid and suspicious and combative with caregivers. Ailyn has been working with [facility] for placement in [facility] locked memory unit. Past Psychiatric History: inpt: none. Past Psychiatric History: inpt: none. OP:Pt had seen Jessica Avila on 08/29/24 for medication recommendations. past medication trial: remeron, vistaril evaluated by Neurology 2022 for dementia Medical Evaluation [facility]: [facility] Medical History Anxiety Cognitive disorder PVD (peripheral vascular disease) Chronic bronchitis Hyperlipidemia Diverticulosis Depression CKD (chronic kidney disease) Thrombocytosis Osteoporosis Smoker Surgical History Hx of colonoscopy Social History: pt is single woman no children lives alone at home and gets help from home health aid and family. she worked as an taxation accountant in past. Trauma History: none known Diagnostics Vital Signs (24Hr): Vital Signs - 24 hr 09/13/24 20:00 Temperature 97.8 F Pulse Rate 68 Respiratory Rate 16 Blood Pressure 134/60 Pulse Oximetry 95 Oxygen Delivery Method Room Air Meds/Allergies Meds Home Medications ?Medication ?Instructions ?Recorded ?Confirmed ?Type aspirin 81 mg tablet,delayed 81 mg PO DAILY 06/19/23 09/10/24 History release simvastatin 10 mg tablet 10 mg PO BEDTIME 06/19/23 09/10/24 History hydroxyzine HCl 10 mg tablet 10 mg PO BEDTIME 08/29/24 09/10/24 History acetaminophen 650 mg 650 mg PO DAILY PRN Pain 09/10/24 09/10/24 History tablet,extended release Allergies Allergies Allergy/AdvReac Type Severity Reaction Status Date / Time No Known Allergies Allergy Verified 09/10/24 13:00 Mental Status Exam Mental Status Exam Narrative: Appearance: wearing hospital gown, thin, somewhat malnourished, in NAD behavior: friendly as she thinks she knows me Psychomotor: no agitation or retardation noted Speech: mostly, clear, difficulty finding words, some expressive aphasia noted, spontaneous TP: derailment, mild expresive aphasia TC: looking for a ride and a cigaret. Mood: good Affect: congruent SI: none HI: none Delusions: no overt delusional content, but confabulation VH/AH: none Insight/judgment: impaired x 2. Memory/cog: alert, oriented only to self, not to situation, month, year. severe inability to retain information, process information and understand information. Assessment & Plan Assessment & Plan (1) Major neurocognitive disorder due to Alzheimer's disease: Status: Acute Code(s): G30.9 - Alzheimer's disease, unspecified; F02.80 - Dementia in other diseases classified elsewhere, unspecified severity, without behavioral disturbance, psychotic disturbance, mood disturbance, and anxiety Plan Ms. Wilder is a 78 year-old woman with advanced dementia, appears of AD type. She was admitted initially to medicine for treatment of UTI after being found wondering at 2am. She is not delirious. Her presentation is consistent with advanced dementia. She is not oriented to place, situation, month or date. Language deficits along with inability to retain any information to recognize herself in the mirriow or other objects. She has been on aricept but had diarrhea and she is also underweight. Had discussed with guardian while she was on the medical floor risperidone, added low dose clonazepam. PLAN 1. admit s1, [id number], 5 mins checks 2. continue risperidone, clonazepam 3. aftercare planning. Patient educated on: diagnosis (guardian) and medication risk/benefits Reason for continued inpatient stay Substantial Risk for: inability to function Statement Statement: I have reviewed the history and physical and performed a pertinent examination on my patient. No changes have occurred unless specified. If the History and Physical was not performed prior to admission, the Hospitalist's service will be consulted for completing the admission physical. Time Spent With Patient Time: Total time managing care of this patient today ____ minutes.
--- NOTE | 2024-09-14 06:54 | PC.NURSE ---
Patient very difficult this AM, resistive to care, attempting to spit out antibiotic. Confused, fighting with staff to get her in to the BR, incontinent of both urine and stool.
[2024-09-14] MEDS: clonazePAM ODT 0.125 MG TAB.RAPDIS 0.25 MG PO ×2 (08:25→21:14)
[2024-09-14] MEDS: risperiDONE 1 MG TABLET PO ×2 (08:26→21:14)
[2024-09-14] MEDS: Aspirin 81 MG TAB.CHEW PO (08:26)
[2024-09-14] MEDS: OLANZapine 5 MG TABLET PO (18:07)
[2024-09-14 20:00] VITALS: BP 117/55; PULSE 75; RESP 18; TEMP 36.6; O2SAT 95
[2024-09-14] MEDS: traZODone HCL 50 MG TABLET PO (21:14)
[2024-09-14] MEDS: Atorvastatin Calcium 10 MG TABLET PO (21:14)
[2024-09-14] MEDS: Mirtazapine 15 MG TABLET PO (21:14)
[2024-09-15] MEDS: cefuroxime axetiL 250 MG TABLET PO ×2 (06:02→17:55)
[2024-09-15 09:19] VITALS: RESP 16; TEMP 36.8
[2024-09-15] MEDS: clonazePAM ODT 0.125 MG TAB.RAPDIS 0.25 MG PO ×2 (09:21→20:34)
[2024-09-15] MEDS: Aspirin 81 MG TAB.CHEW PO (09:21)
[2024-09-15] MEDS: risperiDONE 1 MG TABLET PO ×2 (09:21→20:34)
--- NOTE | 2024-09-15 19:58 | P.PNPSI_ITS ---
Subjective Subjective Date of Service: 09/15/24 Reason For Visit: Dementia Subjective Notes: Section 12B Healthcare Proxy: Yes Interim History: Pt slept most of the night. continues to present as confused. ambulating, able to be redirected. No combative behaviors. Medication Compliance: Yes Mental Status Exam Mental Status Exam Narrative: Appearance: wearing hospital gown, thin, somewhat malnourished, in NAD behavior: friendly as she thinks she knows me Psychomotor: no agitation or retardation noted Speech: mostly, clear, difficulty finding words, some expressive aphasia noted, spontaneous TP: derailment, mild expresive aphasia TC: looking for a ride and a cigaret. Mood: good Affect: congruent SI: none HI: none Delusions: no overt delusional content, but confabulation VH/AH: none Insight/judgment: impaired x 2. Memory/cog: alert, oriented only to self, not to situation, month, year. severe inability to retain information, process information and understand information. Diagnostics Vital Signs (24Hr): Vital Signs - 24 hr 09/14/24 20:00 09/15/24 09:19 Temperature 97.8 F 98.3 F Pulse Rate 75 Respiratory Rate 18 16 Blood Pressure 117/55 L Pulse Oximetry 95 Oxygen Delivery Method Room Air Medications Medications Current Medications Acetaminophen (Acetaminophen 325 Mg Tablet) 650 mg PO Q6H PRN PRN Reason: Headache/Pain Mild Scale (1-3) Al Hydroxide/Mg Hydroxide (Magnesium Hydrox/Alum Hydrox 30 Ml Oral.Susp) 30 ml PO Q6H PRN PRN Reason: Heartburn/Nausea Aspirin (Aspirin 81 Mg Tab.Chew) 81 mg PO DAILY [facility] Last Admin: 09/15/24 09:21 Dose: 81 mg Atorvastatin Calcium (Atorvastatin Calcium 10 Mg Tablet) 10 mg PO BEDTIME [facility] Last Admin: 09/14/24 21:14 Dose: 10 mg Cefuroxime Axetil (Cefuroxime Axetil 250 Mg Tablet) 250 mg PO Q12H [facility] Stop: 09/16/24 06:31 Last Admin: 09/15/24 17:55 Dose: 250 mg Clonazepam (Clonazepam Odt 0.125 Mg Tab.Rapdis) 0.25 mg PO BID [facility] Last Admin: 09/15/24 09:21 Dose: 0.25 mg Hydroxyzine HCl (Hydroxyzine Hcl 25 Mg Tablet) 25 mg PO Q6H PRN PRN Reason: Anxiety Magnesium Hydroxide (Milk Of Magnesia 30 Ml Oral.Susp) 30 ml PO DAILY PRN PRN Reason: Constipation Mirtazapine (Mirtazapine 15 Mg Tablet) 15 mg PO BEDTIME [facility] Last Admin: 09/14/24 21:14 Dose: 15 mg Olanzapine (Olanzapine 5 Mg Tablet) 5 mg PO Q4H PRN PRN Reason: agitation Last Admin: 09/14/24 18:07 Dose: 5 mg Risperidone (Risperidone 1 Mg Tablet) 1 mg PO BID [facility] Last Admin: 09/15/24 09:21 Dose: 1 mg Trazodone HCl (Trazodone Hcl 50 Mg Tablet) 50 mg PO BEDTIME MRX1 PRN PRN Reason: Insomnia Last Admin: 09/14/24 21:14 Dose: 50 mg Allergies Allergies Allergy/AdvReac Type Severity Reaction Status Date / Time No Known Allergies Allergy Verified 09/10/24 13:00 Assessment & Plan Assessment & Plan (1) Major neurocognitive disorder due to Alzheimer's disease: Status: Acute Code(s): G30.9 - Alzheimer's disease, unspecified; F02.80 - Dementia in other diseases classified elsewhere, unspecified severity, without behavioral disturbance, psychotic disturbance, mood disturbance, and anxiety Plan Ms. Wilder is a 78 year-old woman with advanced dementia, appears of AD type. She was admitted initially to medicine for treatment of UTI after being found wondering at 2am. She is not delirious. Her presentation is consistent with advanced dementia. She is not oriented to place, situation, month or date. Language deficits along with inability to retain any information to recognize herself in the mirriow or other objects. She has been on aricept but had d iarrhea and she is also underweight. Had discussed with guardian while she was on the medical floor risperidone, added low dose clonazepam. PLAN 1. continue tx. Reason for continued inpatient stay Substantial Risk for: inability to function Time Spent With Patient Time: Total time managing care of this patient today ____ minutes.
[2024-09-15] MEDS: Mirtazapine 15 MG TABLET PO (20:34)
[2024-09-15] MEDS: Atorvastatin Calcium 10 MG TABLET PO (20:34)
[2024-09-15 20:39] VITALS: BP 129/60; PULSE 71; RESP 16; TEMP 36.2; O2SAT 93
[2024-09-16] MEDS: cefuroxime axetiL 250 MG TABLET PO (05:52)
[2024-09-16 08:00] VITALS: BP 107/53; PULSE 74; RESP 12; TEMP 36.9; O2SAT 97
[2024-09-16] MEDS: clonazePAM ODT 0.125 MG TAB.RAPDIS 0.25 MG PO ×2 (09:25→20:54)
[2024-09-16] MEDS: Aspirin 81 MG TAB.CHEW PO (09:25)
[2024-09-16] MEDS: risperiDONE 1 MG TABLET PO ×2 (09:26→20:54)
--- NOTE | 2024-09-16 13:52 | HO.PSYCHPN ---
Subjective Subjective Date of Service: 09/16/24 Reason For Visit: Dementia Interim History: The nursing staff reported the patient had been compliant with treatment, she does not have for role years but she looks paranoid and suspicious. She continues on Ceftin due to UTI and she was seen self dialogue in, she slept 7 hours last night. On interview the patient looks confused but redirectable. Mental Status Exam Mental Status Exam Patient Appearance: Appropriate Patient Orientation: Person and Situation Level of Consciousness: Awake and Appropriate Patient Behavior: Guarded and Passive Mood Description: Withdrawn Affect Description: Constricted Patient Cognition Impaired: Yes Ability to Follow Directions: Good Speech Pattern: Clear Hallucinations: None Delusions: Ideas of Reference Thought Process: Distracted and Slowed Thinking Thought Content: positive for [place] and positive for Poverty of Content Judgement: Poor Diagnostics Vital Signs (24Hr): Vital Signs - 24 hr 09/15/24 20:39 09/16/24 08:00 Temperature 97.1 F 98.4 F Pulse Rate 71 74 Respiratory Rate 16 12 Blood Pressure 129/60 107/53 L Pulse Oximetry 93 97 Oxygen Delivery Method Room Air Room Air Medications Medications Current Medications Acetaminophen (Acetaminophen 325 Mg Tablet) 650 mg PO Q6H PRN PRN Reason: Headache/Pain Mild Scale (1-3) Al Hydroxide/Mg Hydroxide (Magnesium Hydrox/Alum Hydrox 30 Ml Oral.Susp) 30 ml PO Q6H PRN PRN Reason: Heartburn/Nausea Aspirin (Aspirin 81 Mg Tab.Chew) 81 mg PO DAILY [facility] Last Admin: 09/16/24 09:25 Dose: 81 mg Atorvastatin Calcium (Atorvastatin Calcium 10 Mg Tablet) 10 mg PO BEDTIME [facility] Last Admin: 09/15/24 20:34 Dose: 10 mg Clonazepam (Clonazepam Odt 0.125 Mg Tab.Rapdis) 0.25 mg PO BID [facility] Last Admin: 09/16/24 09:25 Dose: 0.25 mg Hydroxyzine HCl (Hydroxyzine Hcl 25 Mg Tablet) 25 mg PO Q6H PRN PRN Reason: Anxiety Magnesium Hydroxide (Milk Of Magnesia 30 Ml Oral.Susp) 30 ml PO DAILY PRN PRN Reason: Constipation Mirtazapine (Mirtazapine 15 Mg Tablet) 15 mg PO BEDTIME [facility] Last Admin: 09/15/24 20:34 Dose: 15 mg Olanzapine (Olanzapine 5 Mg Tablet) 5 mg PO Q4H PRN PRN Reason: agitation Last Admin: 09/14/24 18:07 Dose: 5 mg Risperidone (Risperidone 1 Mg Tablet) 1 mg PO BID [facility] Last Admin: 09/16/24 09:26 Dose: 1 mg Trazodone HCl (Trazodone Hcl 50 Mg Tablet) 50 mg PO BEDTIME MRX1 PRN PRN Reason: Insomnia Last Admin: 09/14/24 21:14 Dose: 50 mg Allergies Allergies Allergy/AdvReac Type Severity Reaction Status Date / Time No Known Allergies Allergy Verified 09/10/24 13:00 Assessment & Plan Assessment & Plan (1) Major neurocognitive disorder due to Alzheimer's disease: Status: Acute Code(s): G30.9 - Alzheimer's disease, unspecified; F02.80 - Dementia in other diseases classified elsewhere, unspecified severity, without behavioral disturbance, psychotic disturbance, mood disturbance, and anxiety Plan Ms. Wilder is a 78 year-old woman with advanced dementia, appears of AD type. She was admitted initially to medicine for treatment of UTI after being found wondering at 2am. She is not delirious. Her presentation is consistent with advanced dementia. She is not oriented to place, situation, month or date. Language deficits along with inability to retain any information to recognize herself in the mirriow or other objects. She has been on aricept but had diarrhea and she is also underweight. Had discussed with guardian while she was on the medical floor risperidone, added low dose clonazepam. PLAN 1. continue tx. 2. Continue with antibiotics for UTI Reason for continued inpatient stay Substantial Risk for: inability to function, rapid decompensation and med/psych decompensation Time Spent With Patient Time: Total time managing care of this patient today __20__ minutes.
[2024-09-16 16:16] VITALS: BMI 16.0
[2024-09-16] MEDS: hydrOXYzine HCL 25 MG TABLET PO (16:25)
[2024-09-16] MEDS: Acetaminophen 325 MG TABLET 650 MG PO (16:25)
[2024-09-16 20:00] VITALS: BP 107/53; PULSE 66; RESP 16; TEMP 36.1; O2SAT 95
[2024-09-16] MEDS: Atorvastatin Calcium 10 MG TABLET PO (20:54)
[2024-09-16] MEDS: Mirtazapine 15 MG TABLET PO (20:54)
[2024-09-16] MEDS: traZODone HCL 50 MG TABLET PO (20:54)
[2024-09-17 08:00] VITALS: BP 118/54; PULSE 62; RESP 16; TEMP 36.4; O2SAT 95
[2024-09-17] MEDS: risperiDONE 1 MG TABLET PO ×2 (08:58→21:52)
[2024-09-17] MEDS: clonazePAM ODT 0.125 MG TAB.RAPDIS 0.25 MG PO ×2 (08:58→21:52)
[2024-09-17] MEDS: Aspirin 81 MG TAB.CHEW PO (08:58)
[2024-09-17 09:04] LABS: Alanine Aminotransferase 22 U/L (0-31); Albumin Level 3.5 g/dL (3.5-5.0); Alkaline Phosphatase 138 U/L (39-117); Anion Gap 12 (12-20); Aspartate Amino Transferase 31 U/L (5-31); Bilirubin Total 0.3 mg/dL (0.0-1.0); Blood Urea Nitrogen 18 mg/dL (9-16); Calcium 9.5 mg/dL (8.4-10.2); Carbon Dioxide 26 mmol/L (22-29); Chloride 107 mmol/L (96-108); Cholesterol 183 mg/dL (<200); Creatinine Clr Calc Pharmacy 45.1; Estimated Glomerular Filt Rate > 60; Glucose Fasting 86 mg/dL (60-99); HDL Cholesterol 55 mg/dL (>40); LDL Cholesterol Calculated 112 mg/dL (<100); Potassium 4.3 mmol/L (3.3-5.1); Sodium 141 mmol/L (135-145); Total Protein 6.8 g/dL (6.5-8.0); Triglycerides 82 mg/dL (<150)
--- NOTE | 2024-09-17 13:49 | P.PNPSI_ITS ---
Subjective Subjective Date of Service: 09/17/24 Reason For Visit: Dementia Subjective Notes: Conditional Voluntary Interim History: The nursing staff reported the patient is profoundly confused, compliant with treatment. On interview the patient remains confused but easily redirectable. We are ordering a new UA. Mental Status Exam Mental Status Exam Patient Appearance: Appropriate Patient Orientation: Person and Situation Level of Consciousness: Awake and Appropriate Patient Behavior: Guarded and Passive Mood Description: Withdrawn Affect Description: Constricted Patient Cognition Impaired: Yes Ability to Follow Directions: Good Speech Pattern: Clear Hallucinations: None Delusions: Not Present Thought Process: Distracted and Slowed Thinking Thought Content: positive for [place] and positive for Poverty of Content Judgement: Fair Diagnostics Vital Signs (24Hr): Vital Signs - 24 hr 09/16/24 20:00 09/17/24 08:00 Temperature 97 F 97.5 F Pulse Rate 66 62 Respiratory Rate 16 16 Blood Pressure 107/53 L 118/54 L Pulse Oximetry 95 95 Oxygen Delivery Method Room Air Room Air BMI result Body Mass Index 16.0 Labs 09/17/24 08:01 Labs: Laboratory Results - last 48 hr 09/17/24 08:01 Sodium 141 Potassium 4.3 Chloride 107 Carbon Dioxide 26 Anion Gap 12 BUN 18 H Creatinine 0.74 Estim Creat Clear Calc 45.1 Estimated GFR > 60 Fasting Glucose 86 Calcium 9.5 Total Bilirubin 0.3 AST 31 ALT 22 Alkaline Phosphatase 138 H Total Protein 6.8 Albumin 3.5 Triglycerides 82 Cholesterol 183 LDL Cholesterol, Calc 112 H HDL Cholesterol 55 Medications Medications Current Medications Acetaminophen (Acetaminophen 325 Mg Tablet) 650 mg PO Q6H PRN PRN Reason: Headache/Pain Mild Scale (1-3) Last Admin: 09/16/24 16:25 Dose: 650 mg Al Hydroxide/Mg Hydroxide (Magnesium Hydrox/Alum Hydrox 30 Ml Oral.Susp) 30 ml PO Q6H PRN PRN Reason: Heartburn/Nausea Aspirin (Aspirin 81 Mg Tab.Chew) 81 mg PO DAILY [facility] Last Admin: 09/17/24 08:58 Dose: 81 mg Atorvastatin Calcium (Atorvastatin Calcium 10 Mg Tablet) 10 mg PO BEDTIME [facility] Last Admin: 09/16/24 20:54 Dose: 10 mg Clonazepam (Clonazepam Odt 0.125 Mg Tab.Rapdis) 0.25 mg PO BID [facility] Last Admin: 09/17/24 08:58 Dose: 0.25 mg Hydroxyzine HCl (Hydroxyzine Hcl 25 Mg Tablet) 25 mg PO Q6H PRN PRN Reason: Anxiety Last Admin: 09/16/24 16:25 Dose: 25 mg Magnesium Hydroxide (Milk Of Magnesia 30 Ml Oral.Susp) 30 ml PO DAILY PRN PRN Reason: Constipation Mirtazapine (Mirtazapine 15 Mg Tablet) 15 mg PO BEDTIME [facility] Last Admin: 09/16/24 20:54 Dose: 15 mg Olanzapine (Olanzapine 5 Mg Tablet) 5 mg PO Q4H PRN PRN Reason: agitation Last Admin: 09/14/24 18:07 Dose: 5 mg Risperidone (Risperidone 1 Mg Tablet) 1 mg PO BID [facility] Last Admin: 09/17/24 08:58 Dose: 1 mg Trazodone HCl (Trazodone Hcl 50 Mg Tablet) 50 mg PO BEDTIME MRX1 PRN PRN Reason: Insomnia Last Admin: 09/16/24 20:54 Dose: 50 mg Allergies Allergies Allergy/AdvReac Type Severity Reaction Status Date / Time No Known Allergies Allergy Verified 09/10/24 13:00 Assessment & Plan Assessment & Plan (1) Major neurocognitive disorder due to Alzheimer's disease: Status: Acute Code(s): G30.9 - Alzheimer's disease, unspecified; F02.80 - Dementia in other diseases classified elsewhere, unspecified severity, without behavioral disturbance, psychotic disturbance, mood disturbance, and anxiety Plan Ms. Wilder is a 78 year-old woman with advanced dementia, appears of AD type. She was admitted initially to medicine for treatment of UTI after being found wondering at 2am. She is not delirious. Her presentation is consistent with advanced dementia. She is not oriented to place, situation, month or date. Language deficits along with inability to retain any information to recognize herself in the mirriow or other objects. She has been on aricept but had diarrhea and she is also underweight. Had discussed with guardian while she was on the medical floor risperidone, added low dose clonazepam. PLAN 1. continue tx. 2. Continue with antibiotics for UTI Reason for continued inpatient stay Substantial Risk for: inability to function, rapid decompensation and med/psych decompensation Time Spent With Patient Time: Total time managing care of this patient today __20__ minutes.
[2024-09-17 20:00] VITALS: BP 110/53; PULSE 72; RESP 18; TEMP 36.2; O2SAT 95
[2024-09-17] MEDS: traZODone HCL 50 MG TABLET PO (21:52)
[2024-09-17] MEDS: Atorvastatin Calcium 10 MG TABLET PO (21:52)
[2024-09-17] MEDS: Mirtazapine 15 MG TABLET PO (21:52)
[2024-09-18 08:00] VITALS: BP 133/60; PULSE 56; RESP 16; TEMP 36.6; O2SAT 94
[2024-09-18] MEDS: clonazePAM ODT 0.125 MG TAB.RAPDIS 0.25 MG PO ×2 (11:24→21:56)
[2024-09-18] MEDS: Aspirin 81 MG TAB.CHEW PO (11:24)
[2024-09-18] MEDS: risperiDONE 1 MG TABLET PO ×2 (11:24→21:57)
--- NOTE | 2024-09-18 15:07 | MHC.CLN ---
F/U REGULAR DIET. ENSURE TID PROVIDES ADDITIONAL 1050 KCALS, 60 G PROTEIN. HX POOR PO INTAKE. DX MODERATE MALNUTRITION IN THE CONTEXT OF CHRONIC ILLNESS. CURRENT MEAL PATTERN APPEARS TO BE 0 AT BREAKFAST, 50-100% AT LUNCH. CONTINUE CURRENT DIET AND SUPPLEMENT. FOLLOW FOR PO INTAKE AND WEIGHT. RD TO FOLLOW WEEKLY.
[2024-09-18 20:00] VITALS: RESP 17
[2024-09-18] MEDS: Atorvastatin Calcium 10 MG TABLET PO (21:56)
[2024-09-18] MEDS: Mirtazapine 15 MG TABLET PO (21:56)
[2024-09-19 07:00] VITALS: BMI 14.8
[2024-09-19 08:29] VITALS: BP 107/49; PULSE 67; RESP 20; TEMP 36.4; O2SAT 98
[2024-09-19] MEDS: clonazePAM ODT 0.125 MG TAB.RAPDIS 0.25 MG PO ×2 (08:31→21:11)
[2024-09-19] MEDS: Aspirin 81 MG TAB.CHEW PO (08:31)
[2024-09-19] MEDS: risperiDONE 1 MG TABLET PO ×2 (08:31→21:11)
--- NOTE | 2024-09-19 13:34 | HO.PSYCHPN ---
Subjective Subjective Date of Service: 09/19/24 Reason For Visit: Dementia Subjective Notes: Conditional Voluntary Interim History: The nursing staff reported the patient had been social, she has limited appetite but slept very well. On interview the patient denies new symptoms very confused unable to sign CV, we are filing for Section 7 and 8. She has been so disorganized we need to put her on one-to-one. Mental Status Exam Mental Status Exam Patient Appearance: Disheveled Patient Orientation: Person Level of Consciousness: Awake Patient Behavior: Guarded and Passive Mood Description: Calm Affect Description: Constricted Patient Cognition Impaired: Yes Ability to Follow Directions: Good Speech Pattern: Clear Hallucinations: None Delusions: Not Present Thought Process: Distracted and Slowed Thinking Thought Content: positive for [place], positive for Poverty of Content and positive for Thought Blocking Judgement: Poor Diagnostics Vital Signs (24Hr): Vital Signs - 24 hr 09/18/24 20:00 09/19/24 08:29 Temperature 97.5 F Pulse Rate 67 Respiratory Rate 17 20 Blood Pressure 107/49 L Pulse Oximetry 98 Oxygen Delivery Method Room Air BMI result Body Mass Index 16.0 Labs 09/17/24 08:01 Medications Medications Current Medications Acetaminophen (Acetaminophen 325 Mg Tablet) 650 mg PO Q6H PRN PRN Reason: Headache/Pain Mild Scale (1-3) Last Admin: 09/16/24 16:25 Dose: 650 mg Al Hydroxide/Mg Hydroxide (Magnesium Hydrox/Alum Hydrox 30 Ml Oral.Susp) 30 ml PO Q6H PRN PRN Reason: Heartburn/Nausea Aspirin (Aspirin 81 Mg Tab.Chew) 81 mg PO DAILY [facility] Last Admin: 09/19/24 08:31 Dose: 81 mg Atorvastatin Calcium (Atorvastatin Calcium 10 Mg Tablet) 10 mg PO BEDTIME [facility] Last Admin: 09/18/24 21:56 Dose: 10 mg Clonazepam (Clonazepam Odt 0.125 Mg Tab.Rapdis) 0.25 mg PO BID [facility] Last Admin: 09/19/24 08:31 Dose: 0.25 mg Hydroxyzine HCl (Hydroxyzine Hcl 25 Mg Tablet) 25 mg PO Q6H PRN PRN Reason: Anxiety Last Admin: 09/16/24 16:25 Dose: 25 mg Magnesium Hydroxide (Milk Of Magnesia 30 Ml Oral.Susp) 30 ml PO DAILY PRN PRN Reason: Constipation Mirtazapine (Mirtazapine 15 Mg Tablet) 15 mg PO BEDTIME [facility] Last Admin: 09/18/24 21:56 Dose: 15 mg Olanzapine (Olanzapine 5 Mg Tablet) 5 mg PO Q4H PRN PRN Reason: agitation Last Admin: 09/14/24 18:07 Dose: 5 mg Risperidone (Risperidone 1 Mg Tablet) 1 mg PO BID [facility] Last Admin: 09/19/24 08:31 Dose: 1 mg Trazodone HCl (Trazodone Hcl 50 Mg Tablet) 50 mg PO BEDTIME MRX1 PRN PRN Reason: Insomnia Last Admin: 09/17/24 21:52 Dose: 50 mg Allergies Allergies Allergy/AdvReac Type Severity Reaction Status Date / Time No Known Allergies Allergy Verified 09/10/24 13:00 Assessment & Plan Assessment & Plan (1) Major neurocognitive disorder due to Alzheimer's disease: Status: Acute Code(s): G30.9 - Alzheimer's disease, unspecified; F02.80 - Dementia in other diseases classified elsewhere, unspecified severity, without behavioral disturbance, psychotic disturbance, mood disturbance, and anxiety Plan Ms. Wilder is a 78 year-old woman with advanced dementia, appears of AD type. She was admitted initially to medicine for treatment of UTI after being found wondering at 2am. She is not delirious. Her presentation is consistent with advanced dementia. She is not oriented to place, situation, month or date. Language deficits along with inability to retain any information to recognize herself in the mirriow or other objects. She has been on aricept but had diarrhea and she is also underweight. Had discussed with guardian while she was on the medical floor risperidone, added low dose clonazepam. PLAN 1. continue tx. 2. Continue with antibiotics for UTI. 3. Filing for Section 7 and 8. 4. One-to-one for safety Reason for continued inpatient stay Substantial Risk for: inability to function, rapid decompensation and med/psych decompensation Time Spent With Patient Time: Total time managing care of this patient today __20__ minutes.
[2024-09-19 20:00] VITALS: BP 122/56; PULSE 62; RESP 16; TEMP 36.4; O2SAT 96
[2024-09-19] MEDS: Mirtazapine 15 MG TABLET PO (21:11)
[2024-09-19] MEDS: Atorvastatin Calcium 10 MG TABLET PO (21:11)
[2024-09-20 08:32] VITALS: BP 142/63; PULSE 65; RESP 16; TEMP 37.1; O2SAT 96
[2024-09-20] MEDS: Aspirin 81 MG TAB.CHEW PO (09:12)
[2024-09-20] MEDS: risperiDONE 1 MG TABLET PO ×2 (09:12→20:04)
[2024-09-20] MEDS: clonazePAM ODT 0.125 MG TAB.RAPDIS 0.25 MG PO ×2 (09:12→20:04)
--- NOTE | 2024-09-20 10:32 | HO.PSYCHPN ---
Subjective Subjective Date of Service: 09/20/24 Reason For Visit: Dementia Subjective Notes: Section 7 and Section 8 Interim History: The nursing staff reported the patient had been social, limited appetite she ate 50% of her lunch and dinner yesterday. She remains very confused but redirectable. Yesterday we had to file 7 and 8 since she can not signed herself into a conditional voluntary due to her advanced dementia. On interview, the patient reports been fine pleasantly confused. Mental Status Exam Mental Status Exam Patient Appearance: Well Grooomed and Appropriate Patient Orientation: Person and Situation Level of Consciousness: Awake and Appropriate Patient Behavior: Guarded and Passive Mood Description: Withdrawn Affect Description: Constricted Patient Cognition Impaired: Yes Ability to Follow Directions: Good Speech Pattern: Clear Hallucinations: None Delusions: Ideas of Reference Thought Process: Distracted and Slowed Thinking Thought Content: positive for [place] and positive for Poverty of Content Judgement: Fair Diagnostics Vital Signs (24Hr): Vital Signs - 24 hr 09/19/24 20:00 09/20/24 08:32 Temperature 97.6 F 98.7 F Pulse Rate 62 65 Respiratory Rate 16 16 Blood Pressure 122/56 L 142/63 H Pulse Oximetry 96 96 Oxygen Delivery Method Room Air Room Air BMI result Body Mass Index 14.8 Labs 09/17/24 08:01 Medications Medications Current Medications Acetaminophen (Acetaminophen 325 Mg Tablet) 650 mg PO Q6H PRN PRN Reason: Headache/Pain Mild Scale (1-3) Last Admin: 09/16/24 16:25 Dose: 650 mg Al Hydroxide/Mg Hydroxide (Magnesium Hydrox/Alum Hydrox 30 Ml Oral.Susp) 30 ml PO Q6H PRN PRN Reason: Heartburn/Nausea Aspirin (Aspirin 81 Mg Tab.Chew) 81 mg PO DAILY [facility] Last Admin: 09/20/24 09:12 Dose: 81 mg Atorvastatin Calcium (Atorvastatin Calcium 10 Mg Tablet) 10 mg PO BEDTIME [facility] Last Admin: 09/19/24 21:11 Dose: 10 mg Clonazepam (Clonazepam Odt 0.125 Mg Tab.Rapdis) 0.25 mg PO BID [facility] Last Admin: 09/20/24 09:12 Dose: 0.25 mg Magnesium Hydroxide (Milk Of Magnesia 30 Ml Oral.Susp) 30 ml PO DAILY PRN PRN Reason: Constipation Mirtazapine (Mirtazapine 15 Mg Tablet) 15 mg PO BEDTIME [facility] Last Admin: 09/19/24 21:11 Dose: 15 mg Risperidone (Risperidone 1 Mg Tablet) 1 mg PO BID [facility] Last Admin: 09/20/24 09:12 Dose: 1 mg Trazodone HCl (Trazodone Hcl 50 Mg Tablet) 50 mg PO BEDTIME MRX1 PRN PRN Reason: Insomnia Last Admin: 09/17/24 21:52 Dose: 50 mg Allergies Allergies Allergy/AdvReac Type Severity Reaction Status Date / Time No Known Allergies Allergy Verified 09/10/24 13:00 Assessment & Plan Assessment & Plan (1) Major neurocognitive disorder due to Alzheimer's disease: Status: Acute Code(s): G30.9 - Alzheimer's disease, unspecified; F02.80 - Dementia in other diseases classified elsewhere, unspecified severity, without behavioral disturbance, psychotic disturbance, mood disturbance, and anxiety Plan Ms. Wilder is a 78 year-old woman with advanced dementia, appears of AD type. She was admitted initially to medicine for treatment of UTI after being found wondering at 2am. She is not delirious. Her presentation is consistent with advanced dementia. She is not oriented to place, situation, month or date. Language deficits along with inability to retain any information to recognize herself in the mirriow or other objects. She has been on aricept but had diarrhea and she is also underweight. Had discussed with guardian while she was on the medical floor risperidone, added low dose clonazepam. PLAN 1. continue tx. 2. Continue with antibiotics for UTI. The antibiotics were finish we are ordering a new UA 3. Filing for Section 7 and 8. 4. One-to-one for safety Reason for continued inpatient stay Substantial Risk for: inability to function, rapid decompensation and med/psych decompensation Time Spent With Patient Time: Total time managing care of this patient today __20__ minutes.
--- NOTE | 2024-09-20 10:58 | HO.PSYCHPN ---
Subjective Subjective Date of Service: 09/18/24 Reason For Visit: Dementia Subjective Notes: Section 12B Interim History: The nursing staff reported the patient had been confused, she took her medications irritable in the afternoon. The outreach and education social worker reported that she lives in an assisted living facility and they are willing to take her back. On interview the patient is grossly confused but redirectable. Mental Status Exam Mental Status Exam Patient Appearance: Appropriate Patient Orientation: Person and Situation Level of Consciousness: Awake and Appropriate Patient Behavior: Guarded and Passive Mood Description: Withdrawn Affect Description: Constricted Patient Cognition Impaired: Yes Ability to Follow Directions: Good Speech Pattern: Clear Hallucinations: None Delusions: Ideas of Reference Thought Process: Distracted and Slowed Thinking Thought Content: positive for [place] and positive for Poverty of Content Judgement: Fair Diagnostics Vital Signs (24Hr): Vital Signs - 24 hr 09/19/24 20:00 09/20/24 08:32 Temperature 97.6 F 98.7 F Pulse Rate 62 65 Respiratory Rate 16 16 Blood Pressure 122/56 L 142/63 H Pulse Oximetry 96 96 Oxygen Delivery Method Room Air Room Air BMI result Body Mass Index 14.8 Labs 09/17/24 08:01 Medications Medications Current Medications Acetaminophen (Acetaminophen 325 Mg Tablet) 650 mg PO Q6H PRN PRN Reason: Headache/Pain Mild Scale (1-3) Last Admin: 09/16/24 16:25 Dose: 650 mg Al Hydroxide/Mg Hydroxide (Magnesium Hydrox/Alum Hydrox 30 Ml Oral.Susp) 30 ml PO Q6H PRN PRN Reason: Heartburn/Nausea Aspirin (Aspirin 81 Mg Tab.Chew) 81 mg PO DAILY [facility] Last Admin: 09/20/24 09:12 Dose: 81 mg Atorvastatin Calcium (Atorvastatin Calcium 10 Mg Tablet) 10 mg PO BEDTIME [facility] Last Admin: 09/19/24 21:11 Dose: 10 mg Clonazepam (Clonazepam Odt 0.125 Mg Tab.Rapdis) 0.25 mg PO BID [facility] Last Admin: 09/20/24 09:12 Dose: 0.25 mg Magnesium Hydroxide (Milk Of Magnesia 30 Ml Oral.Susp) 30 ml PO DAILY PRN PRN Reason: Constipation Mirtazapine (Mirtazapine 15 Mg Tablet) 15 mg PO BEDTIME [facility] Last Admin: 09/19/24 21:11 Dose: 15 mg Risperidone (Risperidone 1 Mg Tablet) 1 mg PO BID [facility] Last Admin: 09/20/24 09:12 Dose: 1 mg Trazodone HCl (Trazodone Hcl 50 Mg Tablet) 50 mg PO BEDTIME MRX1 PRN PRN Reason: Insomnia Last Admin: 09/17/24 21:52 Dose: 50 mg Allergies Allergies Allergy/AdvReac Type Severity Reaction Status Date / Time No Known Allergies Allergy Verified 09/10/24 13:00 Assessment & Plan Assessment & Plan (1) Major neurocognitive disorder due to Alzheimer's disease: Status: Acute Code(s): G30.9 - Alzheimer's disease, unspecified; F02.80 - Dementia in other diseases classified elsewhere, unspecified severity, without behavioral disturbance, psychotic disturbance, mood disturbance, and anxiety Plan Ms. Wilder is a 78 year-old woman with advanced dementia, appears of AD type. She was admitted initially to medicine for treatment of UTI after being found wondering at 2am. She is not delirious. Her presentation is consistent with advanced dementia. She is not oriented to place, situation, month or date. Language deficits along with inability to retain any information to recognize herself in the mirriow or other objects. She has been on aricept but had diarrhea and she is also underweight. Had discussed with guardian while she was on the medical floor risperidone, added low dose clonazepam. PLAN 1. continue tx. 2. Continue with antibiotics for UTI. The antibiotics were finish we are ordering a new UA 3. Filing for Section 7 and 8 since the patient is unable to sign a CV due to her advanced dementia. 4. Reassessed with results Reason for continued inpatient stay Substantial Risk for: inability to function, rapid decompensation and med/psych decompensation Time Spent With Patient Time: Total time managing care of this patient today _20___ minutes.
[2024-09-20] MEDS: traZODone HCL 50 MG TABLET PO (20:04)
[2024-09-20] MEDS: Mirtazapine 15 MG TABLET PO (20:04)
[2024-09-20] MEDS: Atorvastatin Calcium 10 MG TABLET PO (20:05)
--- NOTE | 2024-09-21 06:33 | P.PNPSI_ITS ---
Subjective Subjective Date of Service: 09/21/24 Reason For Visit: Dementia Subjective Notes: Section 7 and Section 8 Interim History: The nursing staff reported the patient had been confused, pleasant redirectable. On interview the patient denies new symptoms looks pleasantly confused. We are filing for Section 7 and 8 since the patient is unable to sinus CV due to her advanced dementia. Mental Status Exam Mental Status Exam Patient Appearance: Appropriate Patient Orientation: Person Level of Consciousness: Awake Patient Behavior: Guarded and Passive Mood Description: Withdrawn Affect Description: Constricted Patient Cognition Impaired: Yes Ability to Follow Directions: Good Speech Pattern: Clear Hallucinations: None Delusions: Ideas of Reference Thought Process: Distracted and Slowed Thinking Thought Content: positive for [place], positive for Poverty of Content and positive for Thought Blocking Judgement: Poor Diagnostics Vital Signs (24Hr): Vital Signs - 24 hr 09/20/24 08:32 Temperature 98.7 F Pulse Rate 65 Respiratory Rate 16 Blood Pressure 142/63 H Pulse Oximetry 96 Oxygen Delivery Method Room Air BMI result Body Mass Index 14.8 Labs 09/17/24 08:01 Medications Medications Current Medications Acetaminophen (Acetaminophen 325 Mg Tablet) 650 mg PO Q6H PRN PRN Reason: Headache/Pain Mild Scale (1-3) Last Admin: 09/16/24 16:25 Dose: 650 mg Al Hydroxide/Mg Hydroxide (Magnesium Hydrox/Alum Hydrox 30 Ml Oral.Susp) 30 ml PO Q6H PRN PRN Reason: Heartburn/Nausea Aspirin (Aspirin 81 Mg Tab.Chew) 81 mg PO DAILY [facility] Last Admin: 09/20/24 09:12 Dose: 81 mg Atorvastatin Calcium (Atorvastatin Calcium 10 Mg Tablet) 10 mg PO BEDTIME [facility] Last Admin: 09/20/24 20:05 Dose: 10 mg Clonazepam (Clonazepam Odt 0.125 Mg Tab.Rapdis) 0.25 mg PO BID [facility] Last Admin: 09/20/24 20:04 Dose: 0.25 mg Magnesium Hydroxide (Milk Of Magnesia 30 Ml Oral.Susp) 30 ml PO DAILY PRN PRN Reason: Constipation Mirtazapine (Mirtazapine 15 Mg Tablet) 15 mg PO BEDTIME [facility] Last Admin: 09/20/24 20:04 Dose: 15 mg Risperidone (Risperidone 1 Mg Tablet) 1 mg PO BID [facility] Last Admin: 09/20/24 20:04 Dose: 1 mg Trazodone HCl (Trazodone Hcl 50 Mg Tablet) 50 mg PO BEDTIME MRX1 PRN PRN Reason: Insomnia Last Admin: 09/20/24 20:04 Dose: 50 mg Allergies Allergies Allergy/AdvReac Type Severity Reaction Status Date / Time No Known Allergies Allergy Verified 09/10/24 13:00 Assessment & Plan Assessment & Plan (1) Major neurocognitive disorder due to Alzheimer's disease: Status: Acute Code(s): G30.9 - Alzheimer's disease, unspecified; F02.80 - Dementia in other diseases classified elsewhere, unspecified severity, without behavioral disturbance, psychotic disturbance, mood disturbance, and anxiety Plan Ms. Wilder is a 78 year-old woman with advanced dementia, appears of AD type. She was admitted initially to medicine for treatment of UTI after being found wondering at 2am. She is not delirious. Her presentation is consistent with advanced dementia. She is not oriented to place, situation, month or date. Language deficits along with inability to retain any information to recognize herself in the mirriow or other objects. She has been on aricept but had diarrhea and she is also underweight. Had discussed with guardian while she was on the medical floor risperidone, added low dose clonazepam. PLAN 1. continue tx. 2. Continue with antibiotics for UTI. The antibiotics were finish we are ordering a new UA 3. Filing for Section 7 and 8. 4. One-to-one for safety Reason for continued inpatient stay Substantial Risk for: inability to function, rapid decompensation and med/psych decompensation Time Spent With Patient Time: Total time managing care of this patient today _20___ minutes.
[2024-09-21 11:56] VITALS: BP 139/65; PULSE 80; RESP 15; TEMP 37.2; O2SAT 97
[2024-09-21] MEDS: Mirtazapine 15 MG TABLET PO (21:01)
[2024-09-21] MEDS: traZODone HCL 50 MG TABLET PO (21:01)
[2024-09-21] MEDS: Atorvastatin Calcium 10 MG TABLET PO (21:01)
[2024-09-21] MEDS: clonazePAM ODT 0.125 MG TAB.RAPDIS 0.25 MG PO (21:01)
[2024-09-21] MEDS: risperiDONE 1 MG TABLET PO (21:01)
[2024-09-21 21:09] VITALS: BP 100/51; PULSE 67; RESP 16; TEMP 36.2
--- NOTE | 2024-09-22 11:21 | P.PNPSI_ITS ---
Subjective Subjective Date of Service: 09/22/24 Reason For Visit: Dementia Subjective Notes: Section 7 and Section 8 Healthcare Proxy: Yes Interim History: Nursing staff reported the patient had been resistant to care on one-to-one for safety. On interview the patient is pleasantly confused. Mental Status Exam Mental Status Exam Patient Appearance: Appropriate Patient Orientation: Person and Situation Level of Consciousness: Awake Patient Behavior: Guarded and Passive Mood Description: Withdrawn Affect Description: Constricted Patient Cognition Impaired: Yes Ability to Follow Directions: Good Speech Pattern: Clear Hallucinations: None Delusions: Not Present Thought Process: Distracted and Slowed Thinking Thought Content: positive for [place] and positive for Poverty of Content Judgement: Poor Diagnostics Vital Signs (24Hr): Vital Signs - 24 hr 09/21/24 11:56 09/21/24 21:09 Temperature 98.9 F 97.1 F Pulse Rate 80 67 Respiratory Rate 15 16 Blood Pressure 139/65 100/51 L Pulse Oximetry 97 Oxygen Delivery Method Room Air Room Air BMI result Body Mass Index 14.8 Labs 09/17/24 08:01 Medications Medications Current Medications Acetaminophen (Acetaminophen 325 Mg Tablet) 650 mg PO Q6H PRN PRN Reason: Headache/Pain Mild Scale (1-3) Last Admin: 09/16/24 16:25 Dose: 650 mg Al Hydroxide/Mg Hydroxide (Magnesium Hydrox/Alum Hydrox 30 Ml Oral.Susp) 30 ml PO Q6H PRN PRN Reason: Heartburn/Nausea Aspirin (Aspirin 81 Mg Tab.Chew) 81 mg PO DAILY [facility] Last Admin: 09/22/24 09:07 Dose: Not Given Atorvastatin Calcium (Atorvastatin Calcium 10 Mg Tablet) 10 mg PO BEDTIME [facility] Last Admin: 09/21/24 21:01 Dose: 10 mg Clonazepam (Clonazepam Odt 0.125 Mg Tab.Rapdis) 0.25 mg PO BID [facility] Last Admin: 09/22/24 09:07 Dose: Not Given Magnesium Hydroxide (Milk Of Magnesia 30 Ml Oral.Susp) 30 ml PO DAILY PRN PRN Reason: Constipation Mirtazapine (Mirtazapine 15 Mg Tablet) 15 mg PO BEDTIME [facility] Last Admin: 09/21/24 21:01 Dose: 15 mg Risperidone (Risperidone 1 Mg Tablet) 1 mg PO BID [facility] Last Admin: 09/22/24 09:07 Dose: Not Given Trazodone HCl (Trazodone Hcl 50 Mg Tablet) 50 mg PO BEDTIME X1 PRN PRN Reason: Insomnia Last Admin: 09/21/24 21:01 Dose: 50 mg Allergies Allergies Allergy/AdvReac Type Severity Reaction Status Date / Time No Known Allergies Allergy Verified 09/10/24 13:00 Assessment & Plan Assessment & Plan (1) Major neurocognitive disorder due to Alzheimer's disease: Status: Acute Code(s): G30.9 - Alzheimer's disease, unspecified; F02.80 - Dementia in other diseases classified elsewhere, unspecified severity, without behavioral disturbance, psychotic disturbance, mood disturbance, and anxiety Plan Ms. Wilder is a 78 year-old woman with advanced dementia, appears of AD type. She was admitted initially to medicine for treatment of UTI after being found wondering at 2am. She is not delirious. Her presentation is consistent with advanced dementia. She is not oriented to place, situation, month or date. Language deficits along with inability to retain any information to recognize herself in the mirriow or other objects. She has been on aricept but had diarrhea and she is also underweight. Had discussed with guardian while she was on the medical floor risperidone, added low dose clonazepam. PLAN 1. continue tx. 2. Continue with antibiotics for UTI. The antibiotics were finish we are ordering a new UA 3. Filing for Section 7 and 8. 4. One-to-one for safety Reason for continued inpatient stay Substantial Risk for: inability to function, rapid decompensation and med/psych decompensation Time Spent With Patient Time: Total time managing care of this patient today ___20_ minutes.
[2024-09-22] MEDS: clonazePAM ODT 0.125 MG TAB.RAPDIS 0.25 MG PO ×2 (13:11→20:51)
[2024-09-22] MEDS: risperiDONE 1 MG TABLET PO ×2 (13:12→20:51)
[2024-09-22] MEDS: Aspirin 81 MG TAB.CHEW PO (13:12)
[2024-09-22 20:00] VITALS: BP 94/51; PULSE 68; RESP 16; TEMP 36.2; O2SAT 95
[2024-09-22] MEDS: Atorvastatin Calcium 10 MG TABLET PO (20:51)
[2024-09-22] MEDS: Mirtazapine 15 MG TABLET PO (20:51)
--- NOTE | 2024-09-23 10:15 | P.PNPSI_ITS ---
Subjective Subjective Date of Service: 09/23/24 Reason For Visit: Dementia Subjective Notes: Section 7 and Section 8 Interim History: The nursing staff reported the patient had been less labile, self dialogue in disorganized at times but redirectable. She slept 8 hours. The child welfare social worker reported the staff of the assisted living facility will come tomorrow to assess her. We are going to reorder the UA today for possible to rule out she has another UTI. On interview the patient is pleasantly confused. Lactulose in her mental status Mental Status Exam Mental Status Exam Patient Appearance: Appropriate Patient Orientation: Person and Situation Level of Consciousness: Awake and Appropriate Patient Behavior: Guarded and Passive Mood Description: Withdrawn Affect Description: Labile Patient Cognition Impaired: Yes Ability to Follow Directions: Good Speech Pattern: Clear Hallucinations: None Delusions: Ideas of Reference Thought Process: Distracted and Slowed Thinking Thought Content: positive for [place] and positive for Poverty of Content Judgement: Poor Diagnostics Vital Signs (24Hr): Vital Signs - 24 hr 09/22/24 20:00 Temperature 97.1 F Pulse Rate 68 Respiratory Rate 16 Blood Pressure 94/51 L Pulse Oximetry 95 Oxygen Delivery Method Room Air BMI result Body Mass Index 14.8 Labs 09/17/24 08:01 Medications Medications Current Medications Acetaminophen (Acetaminophen 325 Mg Tablet) 650 mg PO Q6H PRN PRN Reason: Headache/Pain Mild Scale (1-3) Last Admin: 09/16/24 16:25 Dose: 650 mg Al Hydroxide/Mg Hydroxide (Magnesium Hydrox/Alum Hydrox 30 Ml Oral.Susp) 30 ml PO Q6H PRN PRN Reason: Heartburn/Nausea Aspirin (Aspirin 81 Mg Tab.Chew) 81 mg PO DAILY [facility] Last Admin: 09/22/24 13:12 Dose: 81 mg Atorvastatin Calcium (Atorvastatin Calcium 10 Mg Tablet) 10 mg PO BEDTIME [facility] Last Admin: 09/22/24 20:51 Dose: 10 mg Clonazepam (Clonazepam Odt 0.125 Mg Tab.Rapdis) 0.25 mg PO BID [facility] Last Admin: 09/22/24 20:51 Dose: 0.25 mg Magnesium Hydroxide (Milk Of Magnesia 30 Ml Oral.Susp) 30 ml PO DAILY PRN PRN Reason: Constipation Mirtazapine (Mirtazapine 15 Mg Tablet) 15 mg PO BEDTIME [facility] Last Admin: 09/22/24 20:51 Dose: 15 mg Risperidone (Risperidone 1 Mg Tablet) 1 mg PO BID [facility] Last Admin: 09/22/24 20:51 Dose: 1 mg Trazodone HCl (Trazodone Hcl 50 Mg Tablet) 50 mg PO BEDTIME MRX1 PRN PRN Reason: Insomnia Last Admin: 09/21/24 21:01 Dose: 50 mg Allergies Allergies Allergy/AdvReac Type Severity Reaction Status Date / Time No Known Allergies Allergy Verified 09/10/24 13:00 Assessment & Plan Assessment & Plan (1) Major neurocognitive disorder due to Alzheimer's disease: Status: Acute Code(s): G30.9 - Alzheimer's disease, unspecified; F02.80 - Dementia in other diseases classified elsewhere, unspecified severity, without behavioral disturbance, psychotic disturbance, mood disturbance, and anxiety Plan Ms. Wilder is a 78 year-old woman with advanced dementia, appears of AD type. She was admitted initially to medicine for treatment of UTI after being found wondering at 2am. She is not delirious. Her presentation is consistent with advanced dementia. She is not oriented to place, situation, month or date. Language deficits along with inability to retain any information to recognize herself in the mirriow or other objects. She has been on aricept but had diarrhea and she is also underweight. Had discussed with guardian while she was on the medical floor risperidone, added low dose clonazepam. PLAN 1. continue tx. 2. Continue with antibiotics for UTI. The antibiotics were finish we are ordering a new UA again on September 23 3. Filing for Section 7 and 8. 4. One-to-one for safety Reason for continued inpatient stay Substantial Risk for: inability to function, rapid decompensation and med/psych decompensation Time Spent With Patient Time: Total time managing care of this patient today __20__ minutes.
[2024-09-23] MEDS: clonazePAM ODT 0.125 MG TAB.RAPDIS 0.25 MG PO ×2 (12:30→20:14)
[2024-09-23] MEDS: Aspirin 81 MG TAB.CHEW PO (12:31)
[2024-09-23] MEDS: risperiDONE 1 MG TABLET PO ×2 (12:31→20:14)
[2024-09-23 13:18] VITALS: BP 117/53; PULSE 81; RESP 18; TEMP 36.5; O2SAT 97
[2024-09-23 14:57] LABS: Appearance Urine Clear; Color Urine Yellow; Glucose Urine UA Negative (Negative); Leukocyte Esterase Urine Moderate (2+) (Negative); Nitrite Urine Positive (Negative); PH 6.5 (5.0-9.0); Specific Gravity - Urine 1.015 (1.005-1.025); UMIC TRIGGER UACC YES; Urine Blood Negative (Negative); Urine Ketones Negative (Negative); Urine Protein Negative (Neg-Trace)
[2024-09-23 15:05] LABS: Bacteria Urine 4+ (None Seen); Hyaline Casts Urine 0-2 /LPF (0-2); RBC Urine 0-2 /HPF (0-2); Squamous Epithelial Cell Urine 0-2 /HPF (0-2); UACC Culture Trigger YES
[2024-09-23 20:00] VITALS: BP 133/56; PULSE 79; RESP 18; TEMP 36.3; O2SAT 95
[2024-09-23] MEDS: Atorvastatin Calcium 10 MG TABLET PO (20:14)
[2024-09-23] MEDS: Mirtazapine 15 MG TABLET PO (20:14)
[2024-09-24 08:55] VITALS: BP 105/51; PULSE 79; RESP 16; TEMP 36.6; O2SAT 96
[2024-09-24] MEDS: cefuroxime axetiL 250 MG TABLET PO ×2 (08:55→20:37)
[2024-09-24] MEDS: risperiDONE 1 MG TABLET PO ×2 (08:56→20:38)
[2024-09-24] MEDS: Aspirin 81 MG TAB.CHEW PO (08:56)
[2024-09-24] MEDS: clonazePAM ODT 0.125 MG TAB.RAPDIS 0.25 MG PO ×2 (08:56→20:37)
--- NOTE | 2024-09-24 12:16 | HO.PSYCHPN ---
Subjective Subjective Date of Service: 09/24/24 Reason For Visit: Dementia Subjective Notes: Section 7 and Section 8 Interim History: The nursing staff reported the patient had been isolative internally preoccupied on one-to-one. She has poor safety awareness and she slept 8 hours. The UA of usually came up positive and we started on Ceftin 250 p.o. q.12. On interview the patient looks pleasantly confused. Mental Status Exam Mental Status Exam Patient Appearance: Appropriate Patient Orientation: Person Level of Consciousness: Awake and Appropriate Patient Behavior: Guarded and Passive Mood Description: Withdrawn Affect Description: Constricted Patient Cognition Impaired: Yes Ability to Follow Directions: Good Speech Pattern: Clear Hallucinations: None Delusions: Ideas of Reference Thought Process: Distracted and Slowed Thinking Thought Content: positive for [place] and positive for Poverty of Content Judgement: Fair Diagnostics Vital Signs (24Hr): Vital Signs - 24 hr 09/23/24 13:18 09/23/24 20:00 09/24/24 08:55 Temperature 97.7 F 97.3 F 97.9 F Pulse Rate 81 79 79 Respiratory Rate 18 18 16 Blood Pressure 117/53 L 133/56 L 105/51 L Pulse Oximetry 97 95 96 Oxygen Delivery Method Room Air Room Air Room Air BMI result Body Mass Index 14.8 Labs 09/17/24 08:01 Labs: Laboratory Results - last 48 hr 09/23/24 14:35 Urine Color Yellow Urine Appearance Clear Urine pH 6.5 Ur Specific [place] 1.015 Urine Protein Negative Urine Glucose (UA) Negative Urine Ketones Negative Urine Blood Negative Urine Nitrite Positive H Ur Leukocyte Esterase Moderate (2+) H Urine RBC 0-2 Urine WBC 6-10 H Ur Squamous Epith Cells 0-2 Urine Bacteria 4+ Hyaline Casts 0-2 Medications Medications Current Medications Acetaminophen (Acetaminophen 325 Mg Tablet) 650 mg PO Q6H PRN PRN Reason: Headache/Pain Mild Scale (1-3) Last Admin: 09/16/24 16:25 Dose: 650 mg Al Hydroxide/Mg Hydroxide (Magnesium Hydrox/Alum Hydrox 30 Ml Oral.Susp) 30 ml PO Q6H PRN PRN Reason: Heartburn/Nausea Aspirin (Aspirin 81 Mg Tab.Chew) 81 mg PO DAILY [facility] Last Admin: 09/24/24 08:56 Dose: 81 mg Atorvastatin Calcium (Atorvastatin Calcium 10 Mg Tablet) 10 mg PO BEDTIME [facility] Last Admin: 09/23/24 20:14 Dose: 10 mg Cefuroxime Axetil (Cefuroxime Axetil 250 Mg Tablet) 250 mg PO Q12H [facility] Last Admin: 09/24/24 08:55 Dose: 250 mg Clonazepam (Clonazepam Odt 0.125 Mg Tab.Rapdis) 0.25 mg PO BID [facility] Last Admin: 09/24/24 08:56 Dose: 0.25 mg Magnesium Hydroxide (Milk Of Magnesia 30 Ml Oral.Susp) 30 ml PO DAILY PRN PRN Reason: Constipation Mirtazapine (Mirtazapine 15 Mg Tablet) 15 mg PO BEDTIME [facility] Last Admin: 09/23/24 20:14 Dose: 15 mg Risperidone (Risperidone 1 Mg Tablet) 1 mg PO BID [facility] Last Admin: 09/24/24 08:56 Dose: 1 mg Trazodone HCl (Trazodone Hcl 50 Mg Tablet) 50 mg PO BEDTIME MRX1 PRN PRN Reason: Insomnia Last Admin: 09/21/24 21:01 Dose: 50 mg Allergies Allergies Allergy/AdvReac Type Severity Reaction Status Date / Time No Known Allergies Allergy Verified 09/10/24 13:00 Assessment & Plan Assessment & Plan (1) Major neurocognitive disorder due to Alzheimer's disease: Status: Acute Code(s): G30.9 - Alzheimer's disease, unspecified; F02.80 - Dementia in other diseases classified elsewhere, unspecified severity, without behavioral disturbance, psychotic disturbance, mood disturbance, and anxiety Plan Ms. Wilder is a 78 year-old woman with advanced dementia, appears of AD type. She was admitted initially to medicine for treatment of UTI after being found wondering at 2am. She is not delirious. Her presentation is consistent with advanced dementia. She is not oriented to place, situation, month or date. Language deficits along with inability to retain any information to recognize herself in the mirriow or other objects. She has been on aricept but had diarrhea and she is also underweight. Had discussed with guardian while she was on the medical floor risperidone, added low dose clonazepam. PLAN 1. continue tx. 2. Continue with antibiotics for UTI. The antibiotics were finish we are ordering a new UA again on September 23 3. Filing for Section 7 and 8. 4. One-to-one for safety 5. Restarted on Ceftin 250 p.o. q.12 due to UTI diagnosed on September 24. Reason for continued inpatient stay Substantial Risk for: inability to function, rapid decompensation and med/psych decompensation Time Spent With Patient Time: Total time managing care of this patient today __20__ minutes.
--- NOTE | 2024-09-24 14:14 | MHC.SL.SWA ---
Speech Pathologist Impression: Risk of Aspiration Due to: Reduced Cognition Dysphasia Diet Status: Liquid Consistency and Strategies for Safe Swallow: Liquid Intake Recommendation: Thin Liquid Intake Strategies: Unrestricted Solid Food Consistency: Dietary Recommendations: Regular Additional Modifications to Solid Foods: This morning's report of coughing/wet vocal quality while lying down may have been a result of reflux effecting the airway. As a precaution, I would recommend the Pt remain upright at least 30 minutes after meals to allow for proper digestion and avoid post-laryngeal reflux. SENIOR HADOOP DEVELOPER will follow-up x1 to ensure this strategy is effective. No changes to her current diet recommended. Oral Medication Intake: Whole with Liquid Please contact the pharmacy regarding appropriate crushable or liquid drug formulations that are available whenever modified delivery is recommended. Compensatory Strategies and Precautions to be Taken for Safe Swallow: Sitting Upright (90 deg) Small Bites and Sips Alternate Liquids/Solids Rate of Ingestion Change Supervision While Eating and Drinking for Safe Swallow: Total Supervision (1:1) Foods to Avoid: Swallowing Recommended Treatments: Compens. Strategy Educat. Recommendation for Speech: Inpatient Speech Therapy Comment: This morning's report of coughing/wet vocal quality while lying down may have been a result of reflux effecting the airway. As a precaution, I would recommend the Pt remain upright at least 30 minutes after meals to allow for proper digestion and avoid post-laryngeal reflux. SENIOR HADOOP DEVELOPER will follow-up x1 to ensure this strategy is effective. No changes to her current diet recommended. Frequency/Duration: Follow x 1 Date Range for Service Req: Discharge Timeline to reassess: PRN Nurse Extern Clinican/Clinical Fellow: No Supervisory Statement: I have reviewed and agree with the student/clinical fellow's documentation: N/A Speech Language Pathologist: Moises Qureshi M.A., [facility]ENIOR HADOOP DEVELOPER
[2024-09-24] MEDS: Mirtazapine 15 MG TABLET PO (20:37)
[2024-09-24] MEDS: Atorvastatin Calcium 10 MG TABLET PO (20:38)
[2024-09-24] MEDS: traZODone HCL 50 MG TABLET PO (20:38)
--- NOTE | 2024-09-25 08:16 | P.PNPSI_ITS ---
Subjective Subjective Date of Service: 09/25/24 Reason For Visit: Dementia Subjective Notes: Conditional Voluntary Interim History: The nursing staff reported the patient had been restless, treated for new UTI on Ceftin. Speech and swallow saw her 8 seems that she is having GERD so we are starting home Pepcid. The patient remains pleasantly confused we are increasing Risperdal up to 1 mg p.o. t.i.d. to target psychosis and agitation. Mental Status Exam Mental Status Exam Patient Appearance: Appropriate Patient Orientation: Person and Situation Level of Consciousness: Awake and Appropriate Patient Behavior: Guarded and Passive Mood Description: Withdrawn Affect Description: Constricted Patient Cognition Impaired: Yes Ability to Follow Directions: Good Speech Pattern: Clear Hallucinations: None Delusions: Not Present Thought Process: Distracted and Slowed Thinking Thought Content: positive for [place] and positive for Poverty of Content Judgement: Poor Diagnostics Vital Signs (24Hr): Vital Signs - 24 hr 09/24/24 08:55 Temperature 97.9 F Pulse Rate 79 Respiratory Rate 16 Blood Pressure 105/51 L Pulse Oximetry 96 Oxygen Delivery Method Room Air BMI result Body Mass Index 14.8 Labs 09/17/24 08:01 Labs: Laboratory Results - last 48 hr 09/23/24 14:35 Urine Color Yellow Urine Appearance Clear Urine pH 6.5 Ur Specific [place] 1.015 Urine Protein Negative Urine Glucose (UA) Negative Urine Ketones Negative Urine Blood Negative Urine Nitrite Positive H Ur Leukocyte Esterase Moderate (2+) H Urine RBC 0-2 Urine WBC 6-10 H Ur Squamous Epith Cells 0-2 Urine Bacteria 4+ Hyaline Casts 0-2 Medications Medications Current Medications Acetaminophen (Acetaminophen 325 Mg Tablet) 650 mg PO Q6H PRN PRN Reason: Headache/Pain Mild Scale (1-3) Last Admin: 09/16/24 16:25 Dose: 650 mg Al Hydroxide/Mg Hydroxide (Magnesium Hydrox/Alum Hydrox 30 Ml Oral.Susp) 30 ml PO Q6H PRN PRN Reason: Heartburn/Nausea Aspirin (Aspirin 81 Mg Tab.Chew) 81 mg PO DAILY [facility] Last Admin: 09/24/24 08:56 Dose: 81 mg Atorvastatin Calcium (Atorvastatin Calcium 10 Mg Tablet) 10 mg PO BEDTIME [facility] Last Admin: 09/24/24 20:38 Dose: 10 mg Cefuroxime Axetil (Cefuroxime Axetil 250 Mg Tablet) 250 mg PO Q12H [facility] Last Admin: 09/24/24 20:37 Dose: 250 mg Clonazepam (Clonazepam Odt 0.125 Mg Tab.Rapdis) 0.25 mg PO BID [facility] Last Admin: 09/24/24 20:37 Dose: 0.25 mg Magnesium Hydroxide (Milk Of Magnesia 30 Ml Oral.Susp) 30 ml PO DAILY PRN PRN Reason: Constipation Mirtazapine (Mirtazapine 15 Mg Tablet) 15 mg PO BEDTIME [facility] Last Admin: 09/24/24 20:37 Dose: 15 mg Risperidone (Risperidone 1 Mg Tablet) 1 mg PO BID [facility] Last Admin: 09/24/24 20:38 Dose: 1 mg Trazodone HCl (Trazodone Hcl 50 Mg Tablet) 50 mg PO BEDTIME MRX1 PRN PRN Reason: Insomnia Last Admin: 09/24/24 20:38 Dose: 50 mg Allergies Allergies Allergy/AdvReac Type Severity Reaction Status Date / Time No Known Allergies Allergy Verified 09/10/24 13:00 Assessment & Plan Assessment & Plan (1) Major neurocognitive disorder due to Alzheimer's disease: Status: Acute Code(s): G30.9 - Alzheimer's disease, unspecified; F02.80 - Dementia in other diseases classified elsewhere, unspecified severity, without behavioral disturbance, psychotic disturbance, mood disturbance, and anxiety Plan Ms. Wilder is a 78 year-old woman with advanced dementia, appears of AD type. She was admitted initially to medicine for treatment of UTI after being found wondering at 2am. She is not delirious. Her presentation is consistent with advanced dementia. She is not oriented to place, situation, month or date. Language deficits along with inability to retain any information to recognize herself in the mirriow or other objects. She has been on aricept but had diarrhea and she is also underweight. Had discussed with guardian while she was on the medical floor risperidone, added low dose clonazepam. PLAN 1. continue tx. 2. Continue with antibiotics for UTI. The antibiotics were finish we are ordering a new UA again on September 23 3. Filing for Section 7 and 8. 4. One-to-one for safety 5. Restarted on Ceftin 250 p.o. q.12 due to UTI diagnosed on September 24. 6. On September 25 we are increasing Risperdal to 1 mg p.o. t.i.d. target agitation Reason for continued inpatient stay Substantial Risk for: inability to function, rapid decompensation and med/psych decompensation Time Spent With Patient Time: Total time managing care of this patient today __20__ minutes.
[2024-09-25 08:30] VITALS: BP 121/62; PULSE 78; RESP 18; TEMP 36.6; O2SAT 95
[2024-09-25] MEDS: risperiDONE 1 MG TABLET PO ×3 (09:18→21:29)
[2024-09-25] MEDS: Memantine HCl 5 MG TABLET PO (09:18)
[2024-09-25] MEDS: clonazePAM ODT 0.125 MG TAB.RAPDIS 0.25 MG PO ×2 (09:18→21:28)
[2024-09-25] MEDS: Famotidine 20 MG TABLET PO ×2 (09:18→21:29)
[2024-09-25] MEDS: cefuroxime axetiL 250 MG TABLET PO ×2 (09:19→21:28)
[2024-09-25] MEDS: Aspirin 81 MG TAB.CHEW PO (09:19)
--- NOTE | 2024-09-25 10:15 | MHC.SLORD ---
Speech Language Pathology Order Status: Pt sleeping this morning, RN and RECEPTION SPECIALIST consulted. No concerns with pt PO tolerance. D/t esophageal dysphagia pt is encouraged to remain upright after meals for 30 minutes, PPI available. SIFTER OPERATOR to follow up this afternoon when pt is awake.
--- NOTE | 2024-09-25 12:52 | MHC.SL.SWA ---
Speech Pathologist Impression: Minimal risk for aspiration, mentation stable at time of INSURANCE HEALTHCARE REPRESENTATIVE re-evaluation Risk of Aspiration Due to: Reduced Cognition Dysphasia Diet Status: Liquid Consistency and Strategies for Safe Swallow: Liquid Intake Recommendation: Thin Liquid Intake Strategies: Small Sips Unrestricted Solid Food Consistency: Dietary Recommendations: Regular Additional Modifications to Solid Foods: Pt initially referred for INSURANCE HEALTHCARE REPRESENTATIVE carmelo d/t coughing/wet vocal quality episode observed while she was lying down, considered a result of reflux effecting the airway. Recc for pt to remain upright at least 30 minutes after meals, with INSURANCE HEALTHCARE REPRESENTATIVE follow up re-assessement. Oral Medication Intake: Whole with Liquid Please contact the pharmacy regarding appropriate crushable or liquid drug formulations that are available whenever modified delivery is recommended. Compensatory Strategies and Precautions to be Taken for Safe Swallow: Sitting Upright (90 deg) Small Bites and Sips Alternate Liquids/Solids Rate of Ingestion Change Supervision While Eating and Drinking for Safe Swallow: Total Supervision (1:1) Foods to Avoid: Swallowing Recommended Treatments: Compens. Strategy Educat. Recommendation for Speech: Inpatient Speech Therapy Comment: 09/25/24 Oral prep phase adequate for labial closure, containment, and chewing, with piecemeal mastication observed initially, with improved rotary motion of jaw in bolus formation. Anterior to posterior transit timely, efficient trigger of pharyngeal swallow observed consistently. Pt has supervision during all PO intake, aspiration precautions in place. INSURANCE HEALTHCARE REPRESENTATIVE recc pt remain upright for 30 minutes after PO intake to reduce risk for post-pharyngeal aspiration. RN noted pt was given PPI today. INSURANCE HEALTHCARE REPRESENTATIVE to follow up as indicated given variability of pt mentation. Frequency/Duration: Follow x 1 Date Range for Service Req: Discharge Timeline to reassess: PRN Etiologist Clinican/Clinical Fellow: No Supervisory Statement: I have reviewed and agree with the student/clinical fellow's documentation: N/A Speech Language Pathologist: Marilyn Aparicio M.S., CCC-INSURANCE HEALTHCARE REPRESENTATIVE
--- NOTE | 2024-09-25 15:31 | MHC.CLN ---
F/U REGULAR DIET. ENSURE TID PROVIDES ADDITIONAL 1050 KCALS, 60 G PROTEIN. SEEN BY BIOMEDICAL ENGINEERING [employer]NS[employer] TODAY AND CONTINUE CURRENT DIET CONSISTENCY. 1:1 SUPERVISION WITH MEALS. EATS SLOWLY. USUAL MEAL PATTERN IS THAT DOES NOT EAT BREAKFAST, THEN 75-100% AT LUNCH AND DINNER. ACCEPTS ENSURE SUPPLEMENT. CONTINUE CURRENT DIET AND SUPPLEMENT. ENCOURAGE INTAKE OF MEALS, SUPPLEMENTS, SNACKS ABLE. RD TO FOLLOW WEEKLY.
[2024-09-25 20:00] VITALS: BP 122/58; PULSE 66; RESP 15; TEMP 36.6; O2SAT 95
[2024-09-25] MEDS: Mirtazapine 15 MG TABLET PO (21:29)
[2024-09-25] MEDS: Atorvastatin Calcium 10 MG TABLET PO (21:29)
[2024-09-25] MEDS: traZODone HCL 50 MG TABLET PO (21:30)
[2024-09-26 07:55] VITALS: BP 113/60; PULSE 78; RESP 18; TEMP 36.8; O2SAT 95
[2024-09-26] MEDS: risperiDONE 1 MG TABLET PO ×3 (08:53→20:10)
[2024-09-26] MEDS: Memantine HCl 5 MG TABLET PO (08:53)
[2024-09-26] MEDS: clonazePAM ODT 0.125 MG TAB.RAPDIS 0.25 MG PO ×3 (08:53→20:10)
[2024-09-26] MEDS: Famotidine 20 MG TABLET PO ×2 (08:53→20:10)
[2024-09-26] MEDS: Aspirin 81 MG TAB.CHEW PO (08:53)
[2024-09-26] MEDS: cefuroxime axetiL 250 MG TABLET PO ×2 (08:53→20:10)
--- NOTE | 2024-09-26 13:21 | MHC.SL.SWA ---
Speech Pathologist Impression: Risk of Aspiration Due to: Reduced Cognition Dysphasia Diet Status: Liquid Consistency and Strategies for Safe Swallow: Liquid Intake Recommendation: Thin Liquid Intake Strategies: Small Sips Unrestricted Solid Food Consistency: Dietary Recommendations: Regular Additional Modifications to Solid Foods: Oral Medication Intake: Whole with Liquid Please contact the pharmacy regarding appropriate crushable or liquid drug formulations that are available whenever modified delivery is recommended. Compensatory Strategies and Precautions to be Taken for Safe Swallow: Sitting Upright (90 deg) Small Bites and Sips Alternate Liquids/Solids Rate of Ingestion Change Supervision While Eating and Drinking for Safe Swallow: Total Supervision (1:1) Foods to Avoid: Swallowing Recommended Treatments: Compens. Strategy Educat. Recommendation for Speech: Inpatient Speech Therapy Comment: 09/24/24: Patient seen at lunch today for toleration of recommended diet of Regular with Thin Liquids. Patient had ESTHETICS INSTRUCTOR at table with her who was supervising her meal and encouraging her to eat. At time of visit, patient had eaten at least two thirds of her main meal, and was finishing her dessert of chocolate pudding. Patient presented as highly confused but quite pleasant in her interactions, and easily encouraged to try different foods. MANIFEST CLERK encouraged patient to try nutritional shake which came with meal and patient took several sips by straw, demonstrating no difficulty drinking with that modality, and no clinical signs of aspiration. Patient commented that's good! Patient also observed taking final bites of meal, evidencing no difficulty with consuming these textures. Patient is on least restrictive diet and managing well, has supervision at meals, is remaining upright for at least thirty minutes after meals. No further speech/language services needed at this time, MANIFEST CLERK will discharge from Speech Service. Frequency/Duration: Date Range for Service Req: Timeline to reassess: Health Care Social Worker Clinican/Clinical Fellow: No Supervisory Statement: I have reviewed and agree with the student/clinical fellow's documentation: N/A Speech Language Pathologist: Dolly Baumann M.A., CCC-MANIFEST CLERK
--- NOTE | 2024-09-26 13:28 | P.PNPSI_ITS ---
Subjective Subjective Date of Service: 09/26/24 Reason For Visit: Dementia Subjective Notes: Conditional Voluntary Interim History: Pt slept through the night. She is pleasant with approached. She is ambulating on her own. Not oriented to place, situation, month or date- and this is her baseline. Her attention is good, no signs of superimposed delirium. She is taking medications as prescribed. No behavioral concerns. Medication Compliance: Yes Side effects from medications: No Attending Groups: No Mental Status Exam Mental Status Exam Narrative: Appearance: wearing hospital gown, thin, somewhat malnourished, in NAD behavior: friendly as she thinks she knows me Psychomotor: no agitation or retardation noted Speech: mostly, clear, difficulty finding words, some expressive aphasia noted, spontaneous TP: derailment, mild expresive aphasia TC: looking for a ride and a cigaret. Mood: good Affect: congruent SI: none HI: none Delusions: no overt delusional content, but confabulation VH/AH: none Insight/judgment: impaired x 2. Memory/cog: alert, oriented only to self, not to situation, month, year. severe inability to retain information, process information and understand information. Diagnostics Vital Signs (24Hr): Vital Signs - 24 hr 09/25/24 20:00 09/26/24 07:55 Temperature 98 F 98.2 F Pulse Rate 66 78 Respiratory Rate 15 18 Blood Pressure 122/58 L 113/60 Pulse Oximetry 95 95 Oxygen Delivery Method Room Air Room Air BMI result Body Mass Index 14.8 Labs 09/17/24 08:01 Medications Medications Current Medications Acetaminophen (Acetaminophen 325 Mg Tablet) 650 mg PO Q6H PRN PRN Reason: Headache/Pain Mild Scale (1-3) Last Admin: 09/16/24 16:25 Dose: 650 mg Al Hydroxide/Mg Hydroxide (Magnesium Hydrox/Alum Hydrox 30 Ml Oral.Susp) 30 ml PO Q6H PRN PRN Reason: Heartburn/Nausea Aspirin (Aspirin 81 Mg Tab.Chew) 81 mg PO DAILY [facility] Last Admin: 09/26/24 08:53 Dose: 81 mg Atorvastatin Calcium (Atorvastatin Calcium 10 Mg Tablet) 10 mg PO BEDTIME [facility] Last Admin: 09/25/24 21:29 Dose: 10 mg Cefuroxime Axetil (Cefuroxime Axetil 250 Mg Tablet) 250 mg PO Q12H [facility] Last Admin: 09/26/24 08:53 Dose: 250 mg Clonazepam (Clonazepam Odt 0.125 Mg Tab.Rapdis) 0.25 mg PO BID [facility] Last Admin: 09/26/24 08:53 Dose: 0.25 mg Famotidine (Famotidine 20 Mg Tablet) 20 mg PO BID [facility] Last Admin: 09/26/24 08:53 Dose: 20 mg Magnesium Hydroxide (Milk Of Magnesia 30 Ml Oral.Susp) 30 ml PO DAILY PRN PRN Reason: Constipation Memantine (Memantine Hcl 5 Mg Tablet) 5 mg PO DAILY [facility] Last Admin: 09/26/24 08:53 Dose: 5 mg Mirtazapine (Mirtazapine 15 Mg Tablet) 15 mg PO BEDTIME [facility] Last Admin: 09/25/24 21:29 Dose: 15 mg Risperidone (Risperidone 1 Mg Tablet) 1 mg PO TID [facility] Last Admin: 09/26/24 08:53 Dose: 1 mg Trazodone HCl (Trazodone Hcl 50 Mg Tablet) 50 mg PO BEDTIME MRX1 PRN PRN Reason: Insomnia Last Admin: 09/25/24 21:30 Dose: 50 mg Allergies Allergies Allergy/AdvReac Type Severity Reaction Status Date / Time No Known Allergies Allergy Verified 09/10/24 13:00 Assessment & Plan Assessment & Plan (1) Major neurocognitive disorder due to Alzheimer's disease: Status: Acute Code(s): G30.9 - Alzheimer's disease, unspecified; F02.80 - Dementia in other diseases classified elsewhere, unspecified severity, without behavioral disturbance, psychotic disturbance, mood disturbance, and anxiety Plan Ms. Wilder is a 78 year-old woman with advanced dementia, appears of AD type. She was admitted initially to medicine for treatment of UTI after being found wondering at 2am. She is not delirious. Her presentation is consistent with advanced dementia. She is not oriented to place, situation, month or date. Language deficits along with inability to retain any information to recognize herself in the [place] or other objects. She has been on aricept but had diarrhea and she is also underweight. Had discussed with guardian while she was on the medical floor risperidone, added low dose clonazepam. PLAN 09/26 pt stable. increase remeron 30mg po qhs for mood. VS stable. Reason for continued inpatient stay Substantial Risk for: inability to function Time Spent With Patient Time: Total time managing care of this patient today ____ minutes.
[2024-09-26 20:00] VITALS: BP 118/55; PULSE 87; RESP 16; TEMP 36.9; O2SAT 98
[2024-09-26] MEDS: Mirtazapine 30 MG TABLET PO (20:10)
[2024-09-26] MEDS: Atorvastatin Calcium 10 MG TABLET PO (20:10)
[2024-09-27 10:16] VITALS: PULSE 81; RESP 18; TEMP 37.4; O2SAT 96
[2024-09-27] MEDS: Aspirin 81 MG TAB.CHEW PO (10:38)
[2024-09-27] MEDS: Memantine HCl 5 MG TABLET PO (10:39)
--- NOTE | 2024-09-27 11:48 | P.PNPSI_ITS ---
Subjective Subjective Date of Service: 09/27/24 Reason For Visit: Dementia Subjective Notes: Section 7 and Section 8 Interim History: The nursing staff reported the patient had been pleasantly confused on 5 minute checks. She continues to be on antibiotics for UTI. On interview the patient is pleasantly confused. Mental Status Exam Mental Status Exam Patient Appearance: Appropriate Patient Orientation: Person and Situation Level of Consciousness: Awake Patient Behavior: Guarded and Passive Mood Description: Withdrawn Affect Description: Constricted Patient Cognition Impaired: Yes Ability to Follow Directions: Good Speech Pattern: Impoverished Hallucinations: None Delusions: Ideas of Reference Thought Process: Distracted and Slowed Thinking Thought Content: positive for [place] and positive for Poverty of Content Judgement: Fair Diagnostics Vital Signs (24Hr): Vital Signs - 24 hr 09/26/24 20:00 09/27/24 10:16 Temperature 98.5 F 99.3 F Pulse Rate 87 81 Respiratory Rate 16 18 Blood Pressure 118/55 L Pulse Oximetry 98 96 Oxygen Delivery Method Room Air Room Air BMI result Body Mass Index 14.8 Labs 09/17/24 08:01 Medications Medications Current Medications Acetaminophen (Acetaminophen 325 Mg Tablet) 650 mg PO Q6H PRN PRN Reason: Headache/Pain Mild Scale (1-3) Last Admin: 09/16/24 16:25 Dose: 650 mg Al Hydroxide/Mg Hydroxide (Magnesium Hydrox/Alum Hydrox 30 Ml Oral.Susp) 30 ml PO Q6H PRN PRN Reason: Heartburn/Nausea Aspirin (Aspirin 81 Mg Tab.Chew) 81 mg PO DAILY [facility] Last Admin: 09/27/24 10:38 Dose: 81 mg Atorvastatin Calcium (Atorvastatin Calcium 10 Mg Tablet) 10 mg PO BEDTIME [facility] Last Admin: 09/26/24 20:10 Dose: 10 mg Cefuroxime Axetil (Cefuroxime Axetil 250 Mg Tablet) 250 mg PO Q12H [facility] Last Admin: 09/27/24 10:39 Dose: 250 mg Clonazepam (Clonazepam Odt 0.125 Mg Tab.Rapdis) 0.25 mg PO TID [facility] Last Admin: 09/27/24 10:38 Dose: 0.25 mg Famotidine (Famotidine 20 Mg Tablet) 20 mg PO BID [facility] Last Admin: 09/27/24 10:39 Dose: 20 mg Magnesium Hydroxide (Milk Of Magnesia 30 Ml Oral.Susp) 30 ml PO DAILY PRN PRN Reason: Constipation Memantine (Memantine Hcl 5 Mg Tablet) 5 mg PO DAILY [facility] Last Admin: 09/27/24 10:39 Dose: 5 mg Mirtazapine (Mirtazapine 30 Mg Tablet) 30 mg PO BEDTIME [facility] Last Admin: 09/26/24 20:10 Dose: 30 mg Olanzapine (Olanzapine 5 Mg Tablet) 5 mg PO Q4H PRN PRN Reason: agitation Risperidone (Risperidone 1 Mg Tablet) 1 mg PO TID [facility] Last Admin: 09/27/24 10:39 Dose: 1 mg Trazodone HCl (Trazodone Hcl 50 Mg Tablet) 50 mg PO BEDTIME MRX1 PRN PRN Reason: Insomnia Last Admin: 09/25/24 21:30 Dose: 50 mg Allergies Allergies Allergy/AdvReac Type Severity Reaction Status Date / Time No Known Allergies Allergy Verified 09/10/24 13:00 Assessment & Plan Assessment & Plan (1) Major neurocognitive disorder due to Alzheimer's disease: Status: Acute Code(s): G30.9 - Alzheimer's disease, unspecified; F02.80 - Dementia in other diseases classified elsewhere, unspecified severity, without behavioral disturbance, psychotic disturbance, mood disturbance, and anxiety Plan Ms. Wilder is a 78 year-old woman with advanced dementia, appears of AD type. She was admitted initially to medicine for treatment of UTI after being found wondering at 2am. She is not delirious. Her presentation is consistent with advanced dementia. She is not oriented to place, situation, month or date. Language deficits along with inability to retain any information to recognize herself in the mirrow or other objects. She has been on aricept but had diarrhea and she is also underweight. Had discussed with guardian while she was on the medical floor risperidone, added low dose clonazepam. PLAN 09/26 pt stable. increase remeron 30mg po qhs for mood. VS stable. 09/27 keep same treatment Reason for continued inpatient stay Substantial Risk for: inability to function, rapid decompensation and med/psych decompensation Time Spent With Patient Time: Total time managing care of this patient today __20__ minutes.
[2024-09-27] MEDS: clonazePAM ODT 0.125 MG TAB.RAPDIS 0.25 MG PO ×2 (15:04→21:23)
[2024-09-27] MEDS: risperiDONE 1 MG TABLET PO ×2 (15:04→21:23)
[2024-09-27 20:00] VITALS: BP 126/56; PULSE 96; RESP 14; TEMP 36.6; O2SAT 96
[2024-09-27] MEDS: Atorvastatin Calcium 10 MG TABLET PO (21:22)
[2024-09-27] MEDS: cefuroxime axetiL 250 MG TABLET PO (21:22)
[2024-09-27] MEDS: Mirtazapine 30 MG TABLET PO (21:23)
[2024-09-27] MEDS: Famotidine 20 MG TABLET PO (21:23)
[2024-09-28 08:17] VITALS: BP 133/59; PULSE 64; RESP 18; TEMP 36.8; O2SAT 96
--- NOTE | 2024-09-28 10:49 | P.PNPSI_ITS ---
Subjective Subjective Date of Service: 09/28/24 Reason For Visit: Dementia Interim History: sleeping hard, not rousable to conversational voice. per staff, on Q5s. confused, wandering, labile. UTI, on ceftin. Mental Status Exam Mental Status Exam Narrative: sleeping soundly in her bed, adequately dressed and groomed. did not awaken to conversational voice. Diagnostics Vital Signs (24Hr): Vital Signs - 24 hr 09/27/24 20:00 09/28/24 08:17 Temperature 97.8 F 98.2 F Pulse Rate 96 64 Respiratory Rate 14 18 Blood Pressure 126/56 L 133/59 L Pulse Oximetry 96 96 Oxygen Delivery Method Room Air Room Air BMI result Body Mass Index 14.8 Labs 09/17/24 08:01 Medications Medications Current Medications Acetaminophen (Acetaminophen 325 Mg Tablet) 650 mg PO Q6H PRN PRN Reason: Headache/Pain Mild Scale (1-3) Last Admin: 09/16/24 16:25 Dose: 650 mg Al Hydroxide/Mg Hydroxide (Magnesium Hydrox/Alum Hydrox 30 Ml Oral.Susp) 30 ml PO Q6H PRN PRN Reason: Heartburn/Nausea Aspirin (Aspirin 81 Mg Tab.Chew) 81 mg PO DAILY [facility] Last Admin: 09/27/24 10:38 Dose: 81 mg Atorvastatin Calcium (Atorvastatin Calcium 10 Mg Tablet) 10 mg PO BEDTIME [facility] Last Admin: 09/27/24 21:22 Dose: 10 mg Cefuroxime Axetil (Cefuroxime Axetil 250 Mg Tablet) 250 mg PO Q12H [facility] Last Admin: 09/27/24 21:22 Dose: 250 mg Clonazepam (Clonazepam Odt 0.125 Mg Tab.Rapdis) 0.25 mg PO TID [facility] Last Admin: 09/27/24 21:23 Dose: 0.25 mg Famotidine (Famotidine 20 Mg Tablet) 20 mg PO BID [facility] Last Admin: 09/27/24 21:23 Dose: 20 mg Magnesium Hydroxide (Milk Of Magnesia 30 Ml Oral.Susp) 30 ml PO DAILY PRN PRN Reason: Constipation Memantine (Memantine Hcl 5 Mg Tablet) 5 mg PO DAILY [facility] Last Admin: 09/27/24 10:39 Dose: 5 mg Mirtazapine (Mirtazapine 30 Mg Tablet) 30 mg PO BEDTIME [facility] Last Admin: 11/22/24 21:23 Dose: 30 mg Olanzapine (Olanzapine 5 Mg Tablet) 5 mg PO Q4H PRN PRN Reason: agitation Risperidone (Risperidone 1 Mg Tablet) 1 mg PO TID [facility] Last Admin: 09/27/24 21:23 Dose: 1 mg Trazodone HCl (Trazodone Hcl 50 Mg Tablet) 50 mg PO BEDTIME MRX1 PRN PRN Reason: Insomnia Last Admin: 09/25/24 21:30 Dose: 50 mg Allergies Allergies Allergy/AdvReac Type Severity Reaction Status Date / Time No Known Allergies Allergy Verified 09/10/24 13:00 Assessment & Plan Assessment & Plan (1) Major neurocognitive disorder due to Alzheimer's disease: Status: Acute Code(s): G30.9 - Alzheimer's disease, unspecified; F02.80 - Dementia in other diseases classified elsewhere, unspecified severity, without behavioral disturbance, psychotic disturbance, mood disturbance, and anxiety Plan Ms. Wilder is a 78 year-old woman with advanced dementia, appears of AD type. She was admitted initially to medicine for treatment of UTI after being found wondering at 2am. She is not delirious. Her presentation is consistent with advanced dementia. She is not oriented to place, situation, month or date. Language deficits along with inability to retain any information to recognize herself in the mirrow or other objects. She has been on aricept but had diarrhea and she is also underweight. Had discussed with guardian while she was on the medical floor risperidone, added low dose clonazepam. PLAN 09/26 pt stable. increase remeron 30mg po qhs for mood. VS stable. 09/27 keep same treatment 09/28: continue current mgmt. Reason for continued inpatient stay Substantial Risk for: inability to function Time Spent With Patient Time: Total time managing care of this patient today ____ minutes.
--- NOTE | 2024-09-28 14:44 | PC.NURSE ---
All am medications held secondary to patient being asleep. The patient woke up for lunch and refused all of her medication even when being approached several different times by this physician underwriter.
[2024-09-28] MEDS: clonazePAM ODT 0.125 MG TAB.RAPDIS 0.25 MG PO ×2 (17:34→19:57)
[2024-09-28] MEDS: risperiDONE 1 MG TABLET PO ×2 (17:34→19:57)
[2024-09-28] MEDS: Famotidine 20 MG TABLET PO (19:57)
[2024-09-28] MEDS: Mirtazapine 30 MG TABLET PO (19:57)
[2024-09-28] MEDS: cefuroxime axetiL 250 MG TABLET PO (19:57)
[2024-09-28] MEDS: Atorvastatin Calcium 10 MG TABLET PO (19:57)
[2024-09-28 20:00] VITALS: BP 119/57; PULSE 85; RESP 16; TEMP 36.4; O2SAT 97
[2024-09-29 09:24] VITALS: BP 137/63; PULSE 83; RESP 18; TEMP 36.5; O2SAT 95
[2024-09-29] MEDS: clonazePAM ODT 0.125 MG TAB.RAPDIS 0.25 MG PO ×3 (11:41→21:08)
[2024-09-29] MEDS: Famotidine 20 MG TABLET PO ×2 (11:41→21:09)
[2024-09-29] MEDS: Memantine HCl 5 MG TABLET PO (11:41)
[2024-09-29] MEDS: cefuroxime axetiL 250 MG TABLET PO ×2 (11:41→21:08)
[2024-09-29] MEDS: risperiDONE 1 MG TABLET PO ×3 (11:42→21:08)
[2024-09-29] MEDS: Aspirin 81 MG TAB.CHEW PO (11:42)
--- NOTE | 2024-09-29 18:19 | P.PNPSI_ITS ---
Subjective Subjective Date of Service: 09/29/24 Reason For Visit: Dementia Interim History: no questions or complaints. per staff, slept in, irritable. no other notable events or behaviors. Mental Status Exam Mental Status Exam Narrative: up and about today, adequately dressed and groomed. marginally cooperative. no PMA/PMR. poor eye contact. speech nml rate, loudness. decr amount. thoughts superficial and linear. concrete, paucity. affect constricted, hypo-intense. mood euthymic. no SI/HI/AVH expressed. Diagnostics Vital Signs (24Hr): Vital Signs - 24 hr 09/28/24 20:00 09/29/24 09:24 Temperature 97.5 F 97.7 F Pulse Rate 85 83 Respiratory Rate 16 18 Blood Pressure 119/57 L 137/63 Pulse Oximetry 97 95 Oxygen Delivery Method Room Air Room Air BMI result Body Mass Index 14.8 Labs 09/17/24 08:01 Medications Medications Current Medications Acetaminophen (Acetaminophen 325 Mg Tablet) 650 mg PO Q6H PRN PRN Reason: Headache/Pain Mild Scale (1-3) Last Admin: 09/16/24 16:25 Dose: 650 mg Al Hydroxide/Mg Hydroxide (Magnesium Hydrox/Alum Hydrox 30 Ml Oral.Susp) 30 ml PO Q6H PRN PRN Reason: Heartburn/Nausea Aspirin (Aspirin 81 Mg Tab.Chew) 81 mg PO DAILY [facility] Last Admin: 09/29/24 11:42 Dose: 81 mg Atorvastatin Calcium (Atorvastatin Calcium 10 Mg Tablet) 10 mg PO BEDTIME [facility] Last Admin: 09/28/24 19:57 Dose: 10 mg Cefuroxime Axetil (Cefuroxime Axetil 250 Mg Tablet) 250 mg PO Q12H [facility] Last Admin: 09/29/24 11:41 Dose: 250 mg Clonazepam (Clonazepam Odt 0.125 Mg Tab.Rapdis) 0.25 mg PO TID [facility] Last Admin: 09/29/24 16:38 Dose: 0.25 mg Famotidine (Famotidine 20 Mg Tablet) 20 mg PO BID [facility] Last Admin: 09/29/24 11:41 Dose: 20 mg Magnesium Hydroxide (Milk Of Magnesia 30 Ml Oral.Susp) 30 ml PO DAILY PRN PRN Reason: Constipation Memantine (Memantine Hcl 5 Mg Tablet) 5 mg PO DAILY [facility] Last Admin: 09/29/24 11:41 Dose: 5 mg Mirtazapine (Mirtazapine 30 Mg Tablet) 30 mg PO BEDTIME [facility] Last Admin: 09/28/24 19:57 Dose: 30 mg Olanzapine (Olanzapine 5 Mg Tablet) 5 mg PO Q4H PRN PRN Reason: agitation Risperidone (Risperidone 1 Mg Tablet) 1 mg PO TID [facility] Last Admin: 09/29/24 16:38 Dose: 1 mg Trazodone HCl (Trazodone Hcl 50 Mg Tablet) 50 mg PO BEDTIME MRX1 PRN PRN Reason: Insomnia Last Admin: 09/25/24 21:30 Dose: 50 mg Allergies Allergies Allergy/AdvReac Type Severity Reaction Status Date / Time No Known Allergies Allergy Verified 09/10/24 13:00 Assessment & Plan Assessment & Plan (1) Major neurocognitive disorder due to Alzheimer's disease: Status: Acute Code(s): G30.9 - Alzheimer's disease, unspecified; F02.80 - Dementia in other diseases classified elsewhere, unspecified severity, without behavioral disturbance, psychotic disturbance, mood disturbance, and anxiety Plan Ms. Wilder is a 78 year-old woman with advanced dementia, appears of AD type. She was admitted initially to medicine for treatment of UTI after being found wondering at 2am. She is not delirious. Her presentation is consistent with advanced dementia. She is not oriented to place, situation, month or date. Language deficits along with inability to retain any information to recognize herself in the mirrow or other objects. She has been on aricept but had diarrhea and she is also underweight. Had discussed with guardian while she was on the medical floor risperidone, added low dose clonazepam. PLAN 09/26 pt stable. increase remeron 30mg po qhs for mood. VS stable. 09/27 keep same treatment 09/28: continue current mgmt. 09/29: continue current mgmt. Reason for continued inpatient stay Substantial Risk for: inability to function Time Spent With Patient Time: Total time managing care of this patient today ____ minutes.
[2024-09-29 20:00] VITALS: BP 137/60; PULSE 91; RESP 16; TEMP 36.4; O2SAT 96
[2024-09-29] MEDS: Mirtazapine 30 MG TABLET PO (21:09)
[2024-09-29] MEDS: traZODone HCL 50 MG TABLET PO (21:09)
[2024-09-29] MEDS: Atorvastatin Calcium 10 MG TABLET PO (21:09)
[2024-09-30 08:55] VITALS: BP 106/61; PULSE 78; RESP 18; TEMP 36.2; O2SAT 95
[2024-09-30] MEDS: Memantine HCl 5 MG TABLET PO (10:31)
[2024-09-30] MEDS: clonazePAM ODT 0.125 MG TAB.RAPDIS 0.25 MG PO ×3 (10:31→20:32)
[2024-09-30] MEDS: Aspirin 81 MG TAB.CHEW PO (10:31)
[2024-09-30] MEDS: risperiDONE 1 MG TABLET PO ×3 (10:32→20:33)
[2024-09-30] MEDS: cefuroxime axetiL 250 MG TABLET PO ×2 (10:32→20:32)
[2024-09-30] MEDS: Famotidine 20 MG TABLET PO ×2 (10:32→20:33)
--- NOTE | 2024-09-30 11:49 | HO.PSYCHPN ---
Subjective Subjective Date of Service: 09/30/24 Reason For Visit: Dementia Subjective Notes: Section 7 and Section 8 Interim History: The nursing staff reported the patient had been compliant with treatment, labile and confused but easily redirectable. Now she is on 15 minute checks. On interview the patient is pleasantly confused, easily redirectable no over-sedation with the change of medications. Diagnostics Vital Signs (24Hr): Vital Signs - 24 hr 09/29/24 20:00 09/30/24 08:55 Temperature 97.6 F 97.2 F Pulse Rate 91 78 Respiratory Rate 16 18 Blood Pressure 137/60 106/61 Pulse Oximetry 96 95 Oxygen Delivery Method Room Air Room Air BMI result Body Mass Index 14.8 Labs 09/17/24 08:01 Medications Medications Current Medications Acetaminophen (Acetaminophen 325 Mg Tablet) 650 mg PO Q6H PRN PRN Reason: Headache/Pain Mild Scale (1-3) Last Admin: 09/16/24 16:25 Dose: 650 mg Al Hydroxide/Mg Hydroxide (Magnesium Hydrox/Alum Hydrox 30 Ml Oral.Susp) 30 ml PO Q6H PRN PRN Reason: Heartburn/Nausea Aspirin (Aspirin 81 Mg Tab.Chew) 81 mg PO DAILY [facility] Last Admin: 09/30/24 10:31 Dose: 81 mg Atorvastatin Calcium (Atorvastatin Calcium 10 Mg Tablet) 10 mg PO BEDTIME [facility] Last Admin: 09/29/24 21:09 Dose: 10 mg Cefuroxime Axetil (Cefuroxime Axetil 250 Mg Tablet) 250 mg PO Q12H [facility] Last Admin: 09/30/24 10:32 Dose: 250 mg Clonazepam (Clonazepam Odt 0.125 Mg Tab.Rapdis) 0.25 mg PO TID [facility] Last Admin: 09/30/24 10:31 Dose: 0.25 mg Famotidine (Famotidine 20 Mg Tablet) 20 mg PO BID [facility] Last Admin: 09/30/24 10:32 Dose: 20 mg Magnesium Hydroxide (Milk Of Magnesia 30 Ml Oral.Susp) 30 ml PO DAILY PRN PRN Reason: Constipation Memantine (Memantine Hcl 5 Mg Tablet) 5 mg PO DAILY [facility] Last Admin: 09/30/24 10:31 Dose: 5 mg Mirtazapine (Mirtazapine 30 Mg Tablet) 30 mg PO BEDTIME [facility] Last Admin: 09/29/24 21:09 Dose: 30 mg Olanzapine (Olanzapine 5 Mg Tablet) 5 mg PO Q4H PRN PRN Reason: agitation Risperidone (Risperidone 1 Mg Tablet) 1 mg PO TID [facility] Last Admin: 09/30/24 10:32 Dose: 1 mg Trazodone HCl (Trazodone Hcl 50 Mg Tablet) 50 mg PO BEDTIME MRX1 PRN PRN Reason: Insomnia Last Admin: 09/29/24 21:09 Dose: 50 mg Allergies Allergies Allergy/AdvReac Type Severity Reaction Status Date / Time No Known Allergies Allergy Verified 09/10/24 13:00 Assessment & Plan Assessment & Plan (1) Major neurocognitive disorder due to Alzheimer's disease: Status: Acute Code(s): G30.9 - Alzheimer's disease, unspecified; F02.80 - Dementia in other diseases classified elsewhere, unspecified severity, without behavioral disturbance, psychotic disturbance, mood disturbance, and anxiety Plan Ms. Wilder is a 78 year-old woman with advanced dementia, appears of AD type. She was admitted initially to medicine for treatment of UTI after being found wondering at 2am. She is not delirious. Her presentation is consistent with advanced dementia. She is not oriented to place, situation, month or date. Language deficits along with inability to retain any information to recognize herself in the mirrow or other objects. She has been on aricept but had diarrhea and she is also underweight. Had discussed with guardian while she was on the medical floor risperidone, added low dose clonazepam. PLAN 09/26 pt stable. increase remeron 30mg po qhs for mood. VS stable. 09/27 keep same treatment 09/28: continue current mgmt. 09/29: continue current mgmt. Reason for continued inpatient stay Substantial Risk for: inability to function, rapid decompensation and med/psych decompensation Time Spent With Patient Time: Total time managing care of this patient today ____ minutes.
--- NOTE | 2024-09-30 12:20 | MHC.CLN ---
F/U REGULAR DIET. ENSURE TID PROVIDES ADDITIONAL 1050 KCALS, 60 G PROTEIN. 1:1 SUPERVISION WITH MEALS. EATS SLOWLY. PO INTAKE VARIABLE. MEAL PATTERN IS THAT DOES NOT EAT BREAKFAST, THEN USUALLY GOOD INTAKE AT LUNCH AND DINNER. ACCEPTS ENSURE SUPPLEMENT. CONTINUE CURRENT DIET AND SUPPLEMENT. ENCOURAGE INTAKE OF MEALS, SUPPLEMENTS, SNACKS ABLE. RD TO FOLLOW WEEKLY.
[2024-09-30 20:00] VITALS: BP 151/64; PULSE 91; RESP 18; TEMP 36.6; O2SAT 94
[2024-09-30] MEDS: Atorvastatin Calcium 10 MG TABLET PO (20:32)
[2024-09-30] MEDS: Mirtazapine 30 MG TABLET PO (20:32)
--- NOTE | 2024-10-01 08:17 | HO.PSYCHPN ---
Subjective Subjective Date of Service: 10/01/24 Reason For Visit: Dementia Subjective Notes: Conditional Voluntary Healthcare Proxy: Yes Interim History: The nursing staff reported the patient had been compliant with meds she was found sitting on the floor and cooperative with care. She slept all night. On interview the patient denies new symptoms pleasantly confused at this point. Mental Status Exam Mental Status Exam Patient Appearance: Appropriate Patient Orientation: Person Level of Consciousness: Awake Patient Behavior: Guarded and Passive Mood Description: Withdrawn Affect Description: Constricted Patient Cognition Impaired: Yes Ability to Follow Directions: Good Speech Pattern: Clear Hallucinations: None Delusions: Ideas of Reference Thought Process: Distracted and Slowed Thinking Thought Content: positive for [place] and positive for Poverty of Content Judgement: Poor Diagnostics Vital Signs (24Hr): Vital Signs - 24 hr 09/30/24 08:55 09/30/24 20:00 Temperature 97.2 F 98 F Pulse Rate 78 91 Respiratory Rate 18 18 Blood Pressure 106/61 151/64 H Pulse Oximetry 95 94 Oxygen Delivery Method Room Air Room Air BMI result Body Mass Index 14.8 Labs 09/17/24 08:01 Medications Medications Current Medications Acetaminophen (Acetaminophen 325 Mg Tablet) 650 mg PO Q6H PRN PRN Reason: Headache/Pain Mild Scale (1-3) Last Admin: 09/16/24 16:25 Dose: 650 mg Al Hydroxide/Mg Hydroxide (Magnesium Hydrox/Alum Hydrox 30 Ml Oral.Susp) 30 ml PO Q6H PRN PRN Reason: Heartburn/Nausea Aspirin (Aspirin 81 Mg Tab.Chew) 81 mg PO DAILY [facility] Last Admin: 09/30/24 10:31 Dose: 81 mg Atorvastatin Calcium (Atorvastatin Calcium 10 Mg Tablet) 10 mg PO BEDTIME [facility] Last Admin: 09/30/24 20:32 Dose: 10 mg Cefuroxime Axetil (Cefuroxime Axetil 250 Mg Tablet) 250 mg PO Q12H [facility] Last Admin: 09/30/24 20:32 Dose: 250 mg Clonazepam (Clonazepam Odt 0.125 Mg Tab.Rapdis) 0.25 mg PO TID [facility] Last Admin: 09/30/24 20:32 Dose: 0.25 mg Famotidine (Famotidine 20 Mg Tablet) 20 mg PO BID [facility] Last Admin: 09/30/24 20:33 Dose: 20 mg Magnesium Hydroxide (Milk Of Magnesia 30 Ml Oral.Susp) 30 ml PO DAILY PRN PRN Reason: Constipation Memantine (Memantine Hcl 5 Mg Tablet) 5 mg PO DAILY [facility] Last Admin: 09/30/24 10:31 Dose: 5 mg Mirtazapine (Mirtazapine 30 Mg Tablet) 30 mg PO BEDTIME [facility] Last Admin: 09/30/24 20:32 Dose: 30 mg Olanzapine (Olanzapine 5 Mg Tablet) 5 mg PO Q4H PRN PRN Reason: agitation Risperidone (Risperidone 1 Mg Tablet) 1 mg PO TID [facility] Last Admin: 09/30/24 20:33 Dose: 1 mg Trazodone HCl (Trazodone Hcl 50 Mg Tablet) 50 mg PO BEDTIME MRX1 PRN PRN Reason: Insomnia Last Admin: 09/29/24 21:09 Dose: 50 mg Allergies Allergies Allergy/AdvReac Type Severity Reaction Status Date / Time No Known Allergies Allergy Verified 09/10/24 13:00 Assessment & Plan Assessment & Plan (1) Major neurocognitive disorder due to Alzheimer's disease: Status: Acute Code(s): G30.9 - Alzheimer's disease, unspecified; F02.80 - Dementia in other diseases classified elsewhere, unspecified severity, without behavioral disturbance, psychotic disturbance, mood disturbance, and anxiety Plan Ms. Wilder is a 78 year-old woman with advanced dementia, appears of AD type. She was admitted initially to medicine for treatment of UTI after being found wondering at 2am. She is not delirious. Her presentation is consistent with advanced dementia. She is not oriented to place, situation, month or date. Language deficits along with inability to retain any information to recognize herself in the mirrow or other objects. She has been on aricept but had diarrhea and she is also underweight. Had discussed with guardian while she was on the medical floor risperidone, added low dose clonazepam. PLAN 1. Risperdal was increased that to 1 mg p.o. t.i.d. to target agitation and psychosis so far it has been effective. 2. Continue with other medications. 3. Start working on discharge planning. Reason for continued inpatient stay Substantial Risk for: inability to function, rapid decompensation and med/psych decompensation Time Spent With Patient Time: Total time managing care of this patient today __20__ minutes.
[2024-10-01 08:42] VITALS: BP 108/55; PULSE 72; RESP 16; TEMP 36; O2SAT 97
[2024-10-01] MEDS: cefuroxime axetiL 250 MG TABLET PO ×2 (12:24→20:37)
[2024-10-01] MEDS: clonazePAM ODT 0.125 MG TAB.RAPDIS 0.25 MG PO ×3 (12:24→20:36)
[2024-10-01] MEDS: risperiDONE 1 MG TABLET PO ×3 (12:25→20:36)
[2024-10-01] MEDS: Memantine HCl 5 MG TABLET PO (12:25)
[2024-10-01] MEDS: Aspirin 81 MG TAB.CHEW PO (12:26)
[2024-10-01] MEDS: Famotidine 20 MG TABLET PO ×2 (12:32→20:37)
[2024-10-01 20:00] VITALS: BP 137/65; PULSE 87; RESP 18; TEMP 36.9; O2SAT 97
[2024-10-01] MEDS: Mirtazapine 30 MG TABLET PO (20:37)
[2024-10-01] MEDS: Atorvastatin Calcium 10 MG TABLET PO (20:37)
[2024-10-02] MEDS: Memantine HCl 5 MG TABLET PO ×2 (08:24→20:42)
[2024-10-02] MEDS: Famotidine 20 MG TABLET PO ×2 (08:24→20:41)
[2024-10-02] MEDS: clonazePAM ODT 0.125 MG TAB.RAPDIS 0.25 MG PO ×2 (08:24→20:40)
[2024-10-02] MEDS: Aspirin 81 MG TAB.CHEW PO (08:24)
[2024-10-02] MEDS: cefuroxime axetiL 250 MG TABLET PO ×2 (08:25→20:41)
[2024-10-02] MEDS: risperiDONE 1 MG TABLET PO ×2 (08:25→20:42)
[2024-10-02 08:34] VITALS: BP 120/55; PULSE 68; RESP 14; TEMP 36.6; O2SAT 97
--- NOTE | 2024-10-02 13:10 | P.PNPSI_ITS ---
Subjective Subjective Date of Service: 10/02/24 Reason For Visit: Dementia Subjective Notes: Conditional Voluntary Interim History: The nursing staff reported the patient had been resistant with care aggressive at times but redirectable. She slept 8 hours. On interview the patient denies new symptoms, confused but redirectable. Mental Status Exam Mental Status Exam Patient Appearance: Appropriate Patient Orientation: Person and Situation Level of Consciousness: Awake Patient Behavior: Guarded and Passive Mood Description: Withdrawn Affect Description: Constricted Patient Cognition Impaired: Yes Ability to Follow Directions: Good Speech Pattern: Impoverished Hallucinations: None Delusions: Ideas of Reference Thought Process: Distracted and Slowed Thinking Thought Content: positive for [place] and positive for Poverty of Content Judgement: Poor Diagnostics Vital Signs (24Hr): Vital Signs - 24 hr 10/01/24 20:00 10/02/24 08:34 Temperature 98.4 F 97.9 F Pulse Rate 87 68 Respiratory Rate 18 14 Blood Pressure 137/65 120/55 L Pulse Oximetry 97 97 Oxygen Delivery Method Room Air Room Air BMI result Body Mass Index 14.8 Labs 09/17/24 08:01 Medications Medications Current Medications Acetaminophen (Acetaminophen 325 Mg Tablet) 650 mg PO Q6H PRN PRN Reason: Headache/Pain Mild Scale (1-3) Last Admin: 09/16/24 16:25 Dose: 650 mg Al Hydroxide/Mg Hydroxide (Magnesium Hydrox/Alum Hydrox 30 Ml Oral.Susp) 30 ml PO Q6H PRN PRN Reason: Heartburn/Nausea Aspirin (Aspirin 81 Mg Tab.Chew) 81 mg PO DAILY [facility] Last Admin: 10/02/24 08:24 Dose: 81 mg Atorvastatin Calcium (Atorvastatin Calcium 10 Mg Tablet) 10 mg PO BEDTIME [facility] Last Admin: 10/01/24 20:37 Dose: 10 mg Cefuroxime Axetil (Cefuroxime Axetil 250 Mg Tablet) 250 mg PO Q12H [facility] Last Admin: 10/02/24 08:25 Dose: 250 mg Clonazepam (Clonazepam Odt 0.125 Mg Tab.Rapdis) 0.25 mg PO TID [facility] Last Admin: 10/02/24 08:24 Dose: 0.25 mg Famotidine (Famotidine 20 Mg Tablet) 20 mg PO BID [facility] Last Admin: 10/02/24 08:24 Dose: 20 mg Magnesium Hydroxide (Milk Of Magnesia 30 Ml Oral.Susp) 30 ml PO DAILY PRN PRN Reason: Constipation Memantine (Memantine Hcl 5 Mg Tablet) 5 mg PO DAILY [facility] Last Admin: 10/02/24 08:24 Dose: 5 mg Mirtazapine (Mirtazapine 30 Mg Tablet) 30 mg PO BEDTIME [facility] Last Admin: 10/01/24 20:37 Dose: 30 mg Olanzapine (Olanzapine 5 Mg Tablet) 5 mg PO Q4H PRN PRN Reason: agitation Risperidone (Risperidone 1 Mg Tablet) 1 mg PO TID [facility] Last Admin: 10/02/24 08:25 Dose: 1 mg Trazodone HCl (Trazodone Hcl 50 Mg Tablet) 50 mg PO BEDTIME MRX1 PRN PRN Reason: Insomnia Last Admin: 09/29/24 21:09 Dose: 50 mg Allergies Allergies Allergy/AdvReac Type Severity Reaction Status Date / Time No Known Allergies Allergy Verified 09/10/24 13:00 Assessment & Plan Assessment & Plan (1) Major neurocognitive disorder due to Alzheimer's disease: Status: Acute Code(s): G30.9 - Alzheimer's disease, unspecified; F02.80 - Dementia in other diseases classified elsewhere, unspecified severity, without behavioral disturbance, psychotic disturbance, mood disturbance, and anxiety Plan Ms. Wilder is a 78 year-old woman with advanced dementia, appears of AD type. She was admitted initially to medicine for treatment of UTI after being found wondering at 2am. She is not delirious. Her presentation is consistent with advanced dementia. She is not oriented to place, situation, month or date. Language deficits along with inability to retain any information to recognize herself in the mirrow or other objects. She has been on aricept but had diarrhea and she is also underweight. Had discussed with guardian while she was on the medical floor risperidone, added low dose clonazepam. PLAN 1. Risperdal was increased that to 1 mg p.o. t.i.d. to target agitation and psychosis so far it has been effective. 2. Continue with other medications. 3. Start working on discharge planning. Reason for continued inpatient stay Substantial Risk for: inability to function, rapid decompensation and med/psych decompensation Time Spent With Patient Time: Total time managing care of this patient today __20__ minutes.
[2024-10-02 20:00] VITALS: BP 98/58; PULSE 95; RESP 18; TEMP 37.4; O2SAT 95
[2024-10-02] MEDS: Atorvastatin Calcium 10 MG TABLET PO (20:41)
[2024-10-02] MEDS: Mirtazapine 30 MG TABLET PO (20:41)
[2024-10-03 07:00] VITALS: BMI 15.4
[2024-10-03 09:55] VITALS: BP 100/62; PULSE 92; RESP 16; TEMP 37; O2SAT 95
[2024-10-03] MEDS: cefuroxime axetiL 250 MG TABLET PO ×2 (10:51→20:23)
[2024-10-03] MEDS: risperiDONE 1 MG TABLET PO ×2 (10:52→20:23)
[2024-10-03] MEDS: Memantine HCl 5 MG TABLET PO ×2 (10:52→20:23)
[2024-10-03] MEDS: Famotidine 20 MG TABLET PO ×2 (10:52→20:23)
[2024-10-03] MEDS: clonazePAM ODT 0.125 MG TAB.RAPDIS 0.25 MG PO ×2 (10:52→20:23)
[2024-10-03] MEDS: Aspirin 81 MG TAB.CHEW PO (10:52)
[2024-10-03 20:00] VITALS: BP 117/56; PULSE 89; RESP 16; TEMP 36.9; O2SAT 96
[2024-10-03] MEDS: Mirtazapine 30 MG TABLET PO (20:23)
[2024-10-03] MEDS: Atorvastatin Calcium 10 MG TABLET PO (20:23)
--- NOTE | 2024-10-03 20:37 | HO.PSYCHPN ---
Subjective Subjective Date of Service: 10/03/24 Reason For Visit: Dementia Subjective Notes: Conditional Voluntary Interim History: pt has been confused with periods of agitation Mental Status Exam Mental Status Exam Patient Appearance: Appropriate Patient Orientation: Person Level of Consciousness: Awake Patient Behavior: Guarded and Passive Mood Description: Withdrawn Affect Description: Constricted, Anxious and Apprehensive Patient Cognition Impaired: Yes Ability to Follow Directions: Good Speech Pattern: Impoverished Memory Description: Immediate Impaired and Episodic Impaired Hallucinations: None Delusions: Ideas of Reference Thought Process: Distracted and Slowed Thinking Thought Content: positive for [place] and positive for Poverty of Content Judgement: Poor Diagnostics Vital Signs (24Hr): Vital Signs - 24 hr 10/03/24 09:55 Temperature 98.6 F Pulse Rate 92 Respiratory Rate 16 Blood Pressure 100/62 Pulse Oximetry 95 Oxygen Delivery Method Room Air BMI result Body Mass Index 15.4 Labs 09/17/24 08:01 Medications Medications Current Medications Acetaminophen (Acetaminophen 325 Mg Tablet) 650 mg PO Q6H PRN PRN Reason: Headache/Pain Mild Scale (1-3) Last Admin: 09/16/24 16:25 Dose: 650 mg Al Hydroxide/Mg Hydroxide (Magnesium Hydrox/Alum Hydrox 30 Ml Oral.Susp) 30 ml PO Q6H PRN PRN Reason: Heartburn/Nausea Aspirin (Aspirin 81 Mg Tab.Chew) 81 mg PO DAILY [facility] Last Admin: 10/03/24 10:52 Dose: 81 mg Atorvastatin Calcium (Atorvastatin Calcium 10 Mg Tablet) 10 mg PO BEDTIME [facility] Last Admin: 10/03/24 20:23 Dose: 10 mg Cefuroxime Axetil (Cefuroxime Axetil 250 Mg Tablet) 250 mg PO Q12H [facility] Last Admin: 10/03/24 20:23 Dose: 250 mg Clonazepam (Clonazepam Odt 0.125 Mg Tab.Rapdis) 0.25 mg PO TID [facility] Last Admin: 10/03/24 20:23 Dose: 0.25 mg Famotidine (Famotidine 20 Mg Tablet) 20 mg PO BID [facility] Last Admin: 10/03/24 20:23 Dose: 20 mg Magnesium Hydroxide (Milk Of Magnesia 30 Ml Oral.Susp) 30 ml PO DAILY PRN PRN Reason: Constipation Memantine (Memantine Hcl 5 Mg Tablet) 5 mg PO BID [facility] Last Admin: 10/03/24 20:23 Dose: 5 mg Mirtazapine (Mirtazapine 30 Mg Tablet) 30 mg PO BEDTIME [facility] Last Admin: 10/03/24 20:23 Dose: 30 mg Olanzapine (Olanzapine 5 Mg Tablet) 5 mg PO Q4H PRN PRN Reason: agitation Risperidone (Risperidone 1 Mg Tablet) 1 mg PO TID [facility] Last Admin: 10/03/24 20:23 Dose: 1 mg Trazodone HCl (Trazodone Hcl 50 Mg Tablet) 50 mg PO BEDTIME MRX1 PRN PRN Reason: Insomnia Last Admin: 09/29/24 21:09 Dose: 50 mg Allergies Allergies Allergy/AdvReac Type Severity Reaction Status Date / Time No Known Allergies Allergy Verified 09/10/24 13:00 Assessment & Plan Assessment & Plan (1) Major neurocognitive disorder due to Alzheimer's disease: Status: Acute Code(s): G30.9 - Alzheimer's disease, unspecified; F02.80 - Dementia in other diseases classified elsewhere, unspecified severity, without behavioral disturbance, psychotic disturbance, mood disturbance, and anxiety Plan Ms. Wilder is a 78 year-old woman with advanced dementia, appears of AD type. She was admitted initially to medicine for treatment of UTI after being found wondering at 2am. She is not delirious. Her presentation is consistent with advanced dementia. She is not oriented to place, situation, month or date. Language deficits along with inability to retain any information to recognize herself in the mirrow or other objects. She has been on aricept but had diarrhea and she is also underweight. Had discussed with guardian while she was on the medical floor risperidone, added low dose clonazepam. PLAN 1. Risperdal was increased that to 1 mg p.o. t.i.d. to target agitation and psychosis so far it has been effective. 2. Continue with other medications. 3. Start working on discharge planning. 10/03/24 Pt with periods of agitation irritability but improved. Reason for continued inpatient stay Substantial Risk for: rapid decompensation Time Spent With Patient Time: Total time managing care of this patient today ____ minutes.
[2024-10-04 08:30] VITALS: BP 117/56; PULSE 89; RESP 16; TEMP 36.9; O2SAT 96
[2024-10-04] MEDS: clonazePAM ODT 0.125 MG TAB.RAPDIS 0.25 MG PO ×3 (08:46→20:01)
[2024-10-04] MEDS: cefuroxime axetiL 250 MG TABLET PO (08:46)
[2024-10-04] MEDS: risperiDONE 1 MG TABLET PO ×3 (08:47→20:02)
[2024-10-04] MEDS: Aspirin 81 MG TAB.CHEW PO (08:47)
[2024-10-04] MEDS: Memantine HCl 5 MG TABLET PO ×2 (08:47→20:01)
[2024-10-04] MEDS: Famotidine 20 MG TABLET PO ×2 (08:47→20:02)
--- NOTE | 2024-10-04 13:38 | P.PNPSI_ITS ---
Subjective Subjective Date of Service: 10/04/24 Reason For Visit: Dementia Subjective Notes: Section 7 and Section 8 Interim History: The nursing staff reported the patient had shown flat affect, sedated in the morning denies depression or anxiety. She had been compliant with medications. On interview the patient denies new symptoms. Mental Status Exam Mental Status Exam Patient Appearance: Appropriate Patient Orientation: Person and Situation Level of Consciousness: Awake and Appropriate Patient Behavior: Guarded and Passive Mood Description: Withdrawn Affect Description: Constricted Patient Cognition Impaired: Yes Ability to Follow Directions: Good Speech Pattern: Clear Hallucinations: None Delusions: Ideas of Reference Thought Process: Distracted and Slowed Thinking Thought Content: positive for [place] and positive for Poverty of Content Judgement: Poor Diagnostics Vital Signs (24Hr): Vital Signs - 24 hr 10/03/24 20:00 10/04/24 08:30 Temperature 98.4 F 98.4 F Pulse Rate 89 89 Respiratory Rate 16 16 Blood Pressure 117/56 L 117/56 L Pulse Oximetry 96 96 Oxygen Delivery Method Room Air Room Air BMI result Body Mass Index 15.4 Labs 09/17/24 08:01 Medications Medications Current Medications Acetaminophen (Acetaminophen 325 Mg Tablet) 650 mg PO Q6H PRN PRN Reason: Headache/Pain Mild Scale (1-3) Last Admin: 09/16/24 16:25 Dose: 650 mg Al Hydroxide/Mg Hydroxide (Magnesium Hydrox/Alum Hydrox 30 Ml Oral.Susp) 30 ml PO Q6H PRN PRN Reason: Heartburn/Nausea Aspirin (Aspirin 81 Mg Tab.Chew) 81 mg PO DAILY [facility] Last Admin: 10/04/24 08:47 Dose: 81 mg Atorvastatin Calcium (Atorvastatin Calcium 10 Mg Tablet) 10 mg PO BEDTIME [facility] Last Admin: 10/03/24 20:23 Dose: 10 mg Clonazepam (Clonazepam Odt 0.125 Mg Tab.Rapdis) 0.25 mg PO TID [facility] Last Admin: 10/04/24 08:46 Dose: 0.25 mg Famotidine (Famotidine 20 Mg Tablet) 20 mg PO BID [facility] Last Admin: 10/04/24 08:47 Dose: 20 mg Magnesium Hydroxide (Milk Of Magnesia 30 Ml Oral.Susp) 30 ml PO DAILY PRN PRN Reason: Constipation Memantine (Memantine Hcl 5 Mg Tablet) 5 mg PO BID [facility] Last Admin: 10/04/24 08:47 Dose: 5 mg Mirtazapine (Mirtazapine 30 Mg Tablet) 30 mg PO BEDTIME [facility] Last Admin: 10/03/24 20:23 Dose: 30 mg Olanzapine (Olanzapine 5 Mg Tablet) 5 mg PO Q4H PRN PRN Reason: agitation Risperidone (Risperidone 1 Mg Tablet) 1 mg PO TID [facility] Last Admin: 10/04/24 08:47 Dose: 1 mg Trazodone HCl (Trazodone Hcl 50 Mg Tablet) 50 mg PO BEDTIME MRX1 PRN PRN Reason: Insomnia Last Admin: 09/29/24 21:09 Dose: 50 mg Allergies Allergies Allergy/AdvReac Type Severity Reaction Status Date / Time No Known Allergies Allergy Verified 09/10/24 13:00 Assessment & Plan Assessment & Plan (1) Major neurocognitive disorder due to Alzheimer's disease: Status: Acute Code(s): G30.9 - Alzheimer's disease, unspecified; F02.80 - Dementia in other diseases classified elsewhere, unspecified severity, without behavioral disturbance, psychotic disturbance, mood disturbance, and anxiety Plan Ms. Wilder is a 78 year-old woman with advanced dementia, appears of AD type. She was admitted initially to medicine for treatment of UTI after being found wondering at 2am. She is not delirious. Her presentation is consistent with advanced dementia. She is not oriented to place, situation, month or date. Language deficits along with inability to retain any information to recognize herself in the mirrow or other objects. She has been on aricept but had diarrhea and she is also underweight. Had discussed with guardian while she was on the medical floor risperidone, added low dose clonazepam. PLAN 1. Risperdal was increased that to 1 mg p.o. t.i.d. to target agitation and psychosis so far it has been effective. 2. Continue with other medications. 3. Start working on discharge planning. Reason for continued inpatient stay Substantial Risk for: inability to function, rapid decompensation and med/psych decompensation Time Spent With Patient Time: Total time managing care of this patient today __20__ minutes.
[2024-10-04 20:00] VITALS: BP 133/60; PULSE 91; TEMP 36.6; O2SAT 95
[2024-10-04] MEDS: traZODone HCL 50 MG TABLET PO (20:01)
[2024-10-04] MEDS: Atorvastatin Calcium 10 MG TABLET PO (20:02)
[2024-10-04] MEDS: Mirtazapine 30 MG TABLET PO (20:02)
[2024-10-05 08:00] VITALS: BP 107/66; PULSE 88; RESP 20; TEMP 36.6; O2SAT 95
--- NOTE | 2024-10-05 13:57 | P.PNPSI_ITS ---
Subjective Subjective Date of Service: 10/05/24 Reason For Visit: Dementia Subjective Notes: Section 7 and Section 8 Interim History: Patient notably lethargic in the morning medication held changes made has been on mirtazapine and Risperdal Mental Status Exam Mental Status Exam Patient Appearance: Appropriate Patient Orientation: Person and Situation Level of Consciousness: Drowsy and Sedated Patient Behavior: Passive Mood Description: Withdrawn Affect Description: Constricted Patient Cognition Impaired: Yes Ability to Follow Directions: Good Speech Pattern: Clear Hallucinations: None Delusions: Ideas of Reference Thought Process: Distracted and Slowed Thinking Thought Content: positive for [place] and positive for Poverty of Content Abnormal Motor Activity Signs and Symptoms: Psychomotor Retardation Judgement: Poor Diagnostics Vital Signs (24Hr): Vital Signs - 24 hr 10/04/24 20:00 10/05/24 08:00 Temperature 98 F 97.8 F Pulse Rate 91 88 Respiratory Rate 20 Blood Pressure 133/60 107/66 Pulse Oximetry 95 95 Oxygen Delivery Method Room Air Room Air BMI result Body Mass Index 15.4 Labs 09/17/24 08:01 Medications Medications Current Medications Acetaminophen (Acetaminophen 325 Mg Tablet) 650 mg PO Q6H PRN PRN Reason: Headache/Pain Mild Scale (1-3) Last Admin: 09/16/24 16:25 Dose: 650 mg Al Hydroxide/Mg Hydroxide (Magnesium Hydrox/Alum Hydrox 30 Ml Oral.Susp) 30 ml PO Q6H PRN PRN Reason: Heartburn/Nausea Aspirin (Aspirin 81 Mg Tab.Chew) 81 mg PO DAILY [facility] Last Admin: 10/05/24 09:02 Dose: Not Given Atorvastatin Calcium (Atorvastatin Calcium 10 Mg Tablet) 10 mg PO BEDTIME [facility] Last Admin: 10/04/24 20:02 Dose: 10 mg Famotidine (Famotidine 20 Mg Tablet) 20 mg PO BID [facility] Last Admin: 10/05/24 09:02 Dose: Not Given Magnesium Hydroxide (Milk Of Magnesia 30 Ml Oral.Susp) 30 ml PO DAILY PRN PRN Reason: Constipation Memantine (Memantine Hcl 5 Mg Tablet) 5 mg PO BID [facility] Last Admin: 10/05/24 09:02 Dose: Not Given Mirtazapine (Mirtazapine 15 Mg Tablet) 15 mg PO BEDTIME [facility] Olanzapine (Olanzapine 5 Mg Tablet) 5 mg PO Q4H PRN PRN Reason: agitation Risperidone (Risperidone 1 Mg Tablet) 1 mg PO BEDTIME [facility] Risperidone (Risperidone 0.5 Mg Tablet) 0.5 mg PO BID PRN PRN Reason: Psychosis Allergies Allergies Allergy/AdvReac Type Severity Reaction Status Date / Time No Known Allergies Allergy Verified 09/10/24 13:00 Assessment & Plan Assessment & Plan (1) Major neurocognitive disorder due to Alzheimer's disease: Status: Acute Code(s): G30.9 - Alzheimer's disease, unspecified; F02.80 - Dementia in other diseases classified elsewhere, unspecified severity, without behavioral disturbance, psychotic disturbance, mood disturbance, and anxiety Plan Ms. Wilder is a 78 year-old woman with advanced dementia, appears of AD type. She was admitted initially to medicine for treatment of UTI after being found wondering at 2am. She is not delirious. Her presentation is consistent with advanced dementia. She is not oriented to place, situation, month or date. Language deficits along with inability to retain any information to recognize herself in the mirrow or other objects. She has been on aricept but had diarrhea and she is also underweight. Had discussed with guardian while she was on the medical floor risperidone, added low dose clonazepam. PLAN 1. Risperdal was increased that to 1 mg p.o. t.i.d. to target agitation and psychosis so far it has been effective. 2. Continue with other medications. 3. Start working on discharge planning. 10/05/2024 Lower Risperdal to 1 mg at bedtime lower mirtazapine to 15 mg at bedtime patient lethargic somewhat sedated during the day awakens later in the afternoon Informed Consent: does not understand and further education needed Reason for continued inpatient stay Substantial Risk for: harm to others, rapid decompensation and med/psych decompensation Time Spent With Patient Time: Total time managing care of this patient today ____ minutes.
[2024-10-05 20:00] VITALS: BP 131/59; PULSE 81; TEMP 36.3; O2SAT 95
[2024-10-06 08:00] VITALS: BP 137/63; PULSE 77; RESP 18; TEMP 36.3; O2SAT 95
[2024-10-06 13:20] LABS: MANUAL DIFF FLAG NO
[2024-10-06 13:30] LABS: Basophils Percent Auto 0.5 % (0-2); Eosinophils Percent Auto 0.3 % (0-4); Hematocrit 46.2 % (37.0-47.0); Hemoglobin 15.3 g/dl (12.0-16.0); Imm Gran Abs Auto 0.02 X10*3/uL (0.00-0.03); Imm Gran Pct Auto 0.3 % (0.0-0.4); Lymphocytes Percent Auto 13.6 % (20-40); Mean Corpuscular HGB Conc 33.1 g/dl (31.0-35.0); Mean Corpuscular Hemoglobin 29.8 pg (27.0-33.0); Mean Corpuscular Volume 90.1 fL (80.0-98.0); Mean Platelet Volume 9.1 fL (9.4-12.3); Monocytes Absolute Auto 0.7 X10*3/uL (0.1-1.2); Monocytes Percent Auto 8.9 % (2-11); Neutrophils Absolute Auto 5.8 x10*3/uL (2.0-8.3); Neutrophils Percent Auto 76.4 % (45-73); Platelet Count 402 X10*3/uL (160-400); Red Blood Count 5.13 X10*6/uL (4.20-5.50); Red Cell Distribution Width 12.1 % (11.0-16.0); White Blood Count 7.6 X10*3/uL (4.8-10.8)
[2024-10-06 13:49] LABS: Alanine Aminotransferase 25 U/L (0-31); Albumin Level 3.7 g/dL (3.5-5.0); Alkaline Phosphatase 172 U/L (39-117); Anion Gap 16 (12-20); Aspartate Amino Transferase 32 U/L (5-31); Bilirubin Total 0.2 mg/dL (0.0-1.0); Blood Urea Nitrogen 19 mg/dL (9-16); Calcium 9.2 mg/dL (8.4-10.2); Carbon Dioxide 23 mmol/L (22-29); Chloride 107 mmol/L (96-108); Creatinine Clr Calc Pharmacy 43.9; Estimated Glomerular Filt Rate > 60; Glucose Random 101 mg/dL (60-115); Potassium 4.4 mmol/L (3.3-5.1); Sodium 142 mmol/L (135-145); Total Protein 7.5 g/dL (6.5-8.0)
[2024-10-06] MEDS: 0.9 % Sodium Chloride 1,000 ML 100 ML IVCONT (14:12)
[2024-10-06] MEDS: 0.9 % Sodium Chloride Flush 3 ML SYRINGE IVFLUSH (15:31)
--- NOTE | 2024-10-06 16:41 | PM.EVENT ---
Event Note Date of Service: 10/06/24 Event Note: The patient is a 78-year-old female with advanced dementia admitted to [facility] psych with hospitalist consult for lethargy in the setting of reduced p.o. intake. According to nursing pt has been barely eating or drinking anything since 10/02 and refusing all meds from 10/04. The patient seen and evaluated in her room where she appears thin, frail, cachectic, and selectively responsive. Initially she is unresponsive and not answering queries until nursing attempted to place IV access for IV fluids. Patient then becomes alert and begins refusing IV access or fluids, though eventually relents. Patient otherwise refuses to answer any other queries concerning HPI or review of systems. CBC and BMP ordered, appear grossly unremarkable and baseline for patient. No leukocytosis. Stable H&H. No significant electrolyte abnormalities. Renal function baseline. Alk-phos mildly elevated at 172, similar to previous. Plan: Administer 1L IVF as a bolus Given unremarkable labs including baseline renal function, no need for additional fluid at this time Encourage p.o. intake Treat mood disorder/dementia as per Psychiatry Would suggest reaching out to guardian/HCP to establish goals of care, including code status and artificial nutrition if patient continues to refuse p.o. intake Currently no medical indication to bring to hospital floor Time Spent With Patient Time: Total time managing care of this patient today ____ minutes.
--- NOTE | 2024-10-06 19:31 | PC.NURSE ---
Pt in bed, resting with eyes closed. Opens them to verbal stimuli. Refused her am meds. Confused, flat, withdrawn affect. New orders from medical provider. Pt on IV hydration at 100ml/hr. Peripheral line in right hand. IV site unremarkable, flushing easily. Pt consumed some ice cream at lunch, then had pudding, ice cream and 1/2 cup of bola sam. Assisted with hygiene care, repositioned as tolerated, appears comfortable. Will continue to monitor.
[2024-10-06 19:35] VITALS: BP 124/54; PULSE 79; RESP 18; TEMP 36.8; O2SAT 98
[2024-10-06] MEDS: Atorvastatin Calcium 10 MG TABLET PO (19:59)
[2024-10-06] MEDS: Memantine HCl 5 MG TABLET PO (19:59)
[2024-10-06] MEDS: Famotidine 20 MG TABLET PO (19:59)
--- NOTE | 2024-10-06 21:46 | HO.PSYCHPN ---
Subjective Subjective Date of Service: 10/06/24 Reason For Visit: Dementia Interim History: Patient has been extremely lethargic minimal food and fluid intake had been getting up in the afternoon now just lying in bed. Clonazepam discontinued other meds on hold at this point med consultation chemistries reveal dehydration Hospitalist consult Mental Status Exam Mental Status Exam Patient Appearance: Fatigued Patient Orientation: Person Level of Consciousness: Drowsy and Sedated Patient Behavior: Passive Mood Description: Withdrawn Affect Description: Constricted Patient Cognition Impaired: Yes Ability to Follow Directions: Poor Hallucinations: None Thought Content: positive for Poverty of Content Abnormal Motor Activity Signs and Symptoms: Psychomotor Retardation Judgement: Poor Judgement and Insight: pt lethargic no food or fluid intake Diagnostics Vital Signs (24Hr): Vital Signs - 24 hr 10/06/24 08:00 10/06/24 19:35 Temperature 97.3 F 98.2 F Pulse Rate 77 79 Respiratory Rate 18 18 Blood Pressure 137/63 124/54 L Pulse Oximetry 95 98 Oxygen Delivery Method Room Air Room Air BMI result Body Mass Index 15.4 Labs 10/06/24 13:14 10/07/24 08:43 Labs: Laboratory Results - last 48 hr 10/06/24 13:14 WBC 7.6 RBC 5.13 Hgb 15.3 Hct 46.2 MCV 90.1 MCH 29.8 MCHC 33.1 RDW 12.1 Plt Count 402 H MPV 9.1 L Immature Gran % (Auto) 0.3 Neut % (Auto) 76.4 H Lymph % (Auto) 13.6 L [place] % (Auto) 8.9 Eos % (Auto) 0.3 Baso % (Auto) 0.5 Lymph # (Auto) 1.0 L [place] # (Auto) 0.7 Eos # (Auto) 0.0 Baso # (Auto) 0.0 Abs Immat Gran (auto) 0.02 Absolute Neuts (auto) 5.8 Absolute Nucleated RBC 0.000 Nucleated RBC % (auto) 0.0 Sodium 142 Potassium 4.4 Chloride 107 Carbon Dioxide 23 Anion Gap 16 BUN 19 H Creatinine 0.73 Estim Creat Clear Calc 43.9 Estimated GFR > 60 Random Glucose 101 Calcium 9.2 Total Bilirubin 0.2 AST 32 H ALT 25 Alkaline Phosphatase 172 H Total Protein 7.5 Albumin 3.7 Medications Medications Current Medications Acetaminophen (Acetaminophen 325 Mg Tablet) 650 mg PO Q6H PRN PRN Reason: Headache/Pain Mild Scale (1-3) Last Admin: 09/16/24 16:25 Dose: 650 mg Al Hydroxide/Mg Hydroxide (Magnesium Hydrox/Alum Hydrox 30 Ml Oral.Susp) 30 ml PO Q6H PRN PRN Reason: Heartburn/Nausea Aspirin (Aspirin 81 Mg Tab.Chew) 81 mg PO DAILY [facility] Last Admin: 10/06/24 09:39 Dose: Not Given Atorvastatin Calcium (Atorvastatin Calcium 10 Mg Tablet) 10 mg PO BEDTIME [facility] Last Admin: 10/06/24 19:59 Dose: 10 mg Famotidine (Famotidine 20 Mg Tablet) 20 mg PO BID [facility] Last Admin: 10/06/24 19:59 Dose: 20 mg Magnesium Hydroxide (Milk Of Magnesia 30 Ml Oral.Susp) 30 ml PO DAILY PRN PRN Reason: Constipation Memantine (Memantine Hcl 5 Mg Tablet) 5 mg PO BID [facility] Last Admin: 10/06/24 19:59 Dose: 5 mg Risperidone (Risperidone 0.5 Mg Tablet) 0.5 mg PO BID PRN PRN Reason: Psychosis Sodium Chloride (0.9 % Sodium Chloride Flush 3 Ml Syringe) 3 ml IVFLUSH QSHIFT [facility] Last Admin: 10/06/24 15:31 Dose: 3 ml Allergies Allergies Allergy/AdvReac Type Severity Reaction Status Date / Time No Known Allergies Allergy Verified 09/10/24 13:00 Assessment & Plan Assessment & Plan (1) Major neurocognitive disorder due to Alzheimer's disease: Status: Acute Code(s): G30.9 - Alzheimer's disease, unspecified; F02.80 - Dementia in other diseases classified elsewhere, unspecified severity, without behavioral disturbance, psychotic disturbance, mood disturbance, and anxiety (2) Lethargy: Status: Acute Code(s): R53.83 - Other fatigue Plan Ms. Wilder is a 78 year-old woman with advanced dementia, appears of AD type. She was admitted initially to medicine for treatment of UTI after being found wondering at 2am. She is not delirious. Her presentation is consistent with advanced dementia. She is not oriented to place, situation, month or date. Language deficits along with inability to retain any information to recognize herself in the mirrow or other objects. She has been on aricept but had diarrhea and she is also underweight. Had discussed with guardian while she was on the medical floor risperidone, added low dose clonazepam. PLAN 1. Risperdal was increased that to 1 mg p.o. t.i.d. to target agitation and psychosis so far it has been effective. 2. Continue with other medications. 3. Start working on discharge planning. 10/05/2024 Lower Risperdal to 1 mg at bedtime lower mirtazapine to 15 mg at bedtime patient lethargic somewhat sedated during the day awakens later in the afternoon 10/06/2024 Patient lethargic not eating or drinking past day in spite of not taking medication. Lethargic was seen by internal medicine. Started normal saline intravenous fluids became much more verbal and alert. Patient with significant Alzheimer dementia unclear why patient became so lethargic and unclear if related to medication. Medication hold for now intravenous fluids as needed no pain no obvious infection no fever Check chemistries CBC in the morning Reason for continued inpatient stay Substantial Risk for: inability to function, rapid decompensation and med/psych decompensation Time Spent With Patient Time: Total time managing care of this patient today _30___ minutes.
[2024-10-07] MEDS: 0.9 % Sodium Chloride Flush 3 ML SYRINGE IVFLUSH ×3 (01:17→15:42)
[2024-10-07 08:00] VITALS: BP 189/86; PULSE 84; RESP 16; TEMP 36.5; O2SAT 96
--- NOTE | 2024-10-07 08:27 | HO.PSYCHPN ---
Subjective Subjective Date of Service: 10/07/24 Reason For Visit: Dementia Subjective Notes: Conditional Voluntary Interim History: The nursing staff reported the patient was with an IV access and IV fluids since she was very hypoactive not having p.o. intake. Even though her labs were not so bad. She slept well all last night. On interview the patient was less sedated, wake her up she has refused medications in the morning but she agreed IV access. Mental Status Exam Mental Status Exam Patient Appearance: Appropriate Patient Orientation: Person and Situation Level of Consciousness: Awake and Appropriate Patient Behavior: Guarded and Passive Mood Description: Withdrawn Affect Description: Constricted Patient Cognition Impaired: Yes Ability to Follow Directions: Good Speech Pattern: Clear Hallucinations: None Delusions: Ideas of Reference Thought Process: Distracted and Slowed Thinking Thought Content: positive for [place], positive for Poverty of Content and positive for Thought Blocking Judgement: Poor Diagnostics Vital Signs (24Hr): Vital Signs - 24 hr 10/06/24 19:35 Temperature 98.2 F Pulse Rate 79 Respiratory Rate 18 Blood Pressure 124/54 L Pulse Oximetry 98 Oxygen Delivery Method Room Air BMI result Body Mass Index 15.4 Labs 10/06/24 13:14 10/07/24 08:43 Labs: Laboratory Results - last 48 hr 10/06/24 13:14 WBC 7.6 RBC 5.13 Hgb 15.3 Hct 46.2 MCV 90.1 MCH 29.8 MCHC 33.1 RDW 12.1 Plt Count 402 H MPV 9.1 L Immature Gran % (Auto) 0.3 Neut % (Auto) 76.4 H Lymph % (Auto) 13.6 L [place] % (Auto) 8.9 Eos % (Auto) 0.3 Baso % (Auto) 0.5 Lymph # (Auto) 1.0 L [place] # (Auto) 0.7 Eos # (Auto) 0.0 Baso # (Auto) 0.0 Abs Immat Gran (auto) 0.02 Absolute Neuts (auto) 5.8 Absolute Nucleated RBC 0.000 Nucleated RBC % (auto) 0.0 Sodium 142 Potassium 4.4 Chloride 107 Carbon Dioxide 23 Anion Gap 16 BUN 19 H Creatinine 0.73 Estim Creat Clear Calc 43.9 Estimated GFR > 60 Random Glucose 101 Calcium 9.2 Total Bilirubin 0.2 AST 32 H ALT 25 Alkaline Phosphatase 172 H Total Protein 7.5 Albumin 3.7 Medications Medications Current Medications Acetaminophen (Acetaminophen 325 Mg Tablet) 650 mg PO Q6H PRN PRN Reason: Headache/Pain Mild Scale (1-3) Last Admin: 09/16/24 16:25 Dose: 650 mg Al Hydroxide/Mg Hydroxide (Magnesium Hydrox/Alum Hydrox 30 Ml Oral.Susp) 30 ml PO Q6H PRN PRN Reason: Heartburn/Nausea Aspirin (Aspirin 81 Mg Tab.Chew) 81 mg PO DAILY [facility] Last Admin: 10/07/24 08:06 Dose: 81 mg Atorvastatin Calcium (Atorvastatin Calcium 10 Mg Tablet) 10 mg PO BEDTIME [facility] Last Admin: 10/06/24 19:59 Dose: 10 mg Famotidine (Famotidine 20 Mg Tablet) 20 mg PO BID [facility] Last Admin: 10/06/24 19:59 Dose: 20 mg Magnesium Hydroxide (Milk Of Magnesia 30 Ml Oral.Susp) 30 ml PO DAILY PRN PRN Reason: Constipation Memantine (Memantine Hcl 5 Mg Tablet) 5 mg PO BID [facility] Last Admin: 10/07/24 08:06 Dose: 5 mg Risperidone (Risperidone 0.5 Mg Tablet) 0.5 mg PO BID PRN PRN Reason: Psychosis Sodium Chloride (0.9 % Sodium Chloride Flush 3 Ml Syringe) 3 ml IVFLUSH QSHIFT [facility] Last Admin: 10/07/24 01:17 Dose: 3 ml Allergies Allergies Allergy/AdvReac Type Severity Reaction Status Date / Time No Known Allergies Allergy Verified 09/10/24 13:00 Assessment & Plan Assessment & Plan (1) Major neurocognitive disorder due to Alzheimer's disease: Status: Acute Code(s): G30.9 - Alzheimer's disease, unspecified; F02.80 - Dementia in other diseases classified elsewhere, unspecified severity, without behavioral disturbance, psychotic disturbance, mood disturbance, and anxiety (2) Lethargy: Status: Acute Code(s): R53.83 - Other fatigue Plan Ms. Wilder is a 78 year-old woman with advanced dementia, appears of AD type. She was admitted initially to medicine for treatment of UTI after being found wondering at 2am. She is not delirious. Her presentation is consistent with advanced dementia. She is not oriented to place, situation, month or date. Language deficits along with inability to retain any information to recognize herself in the mirrow or other objects. She has been on aricept but had diarrhea and she is also underweight. Had discussed with guardian while she was on the medical floor risperidone, added low dose clonazepam. PLAN 1. Risperdal was increased that to 1 mg p.o. t.i.d. to target agitation and psychosis so far it has been effective. 2. Continue with other medications. 3. Start working on discharge planning. 4. Over the weekend of the end of September, Risperdal and Remeron were lowered due to over-sedation. She was put with IV fluid since she was not taking fluids. Even though his blood work came back within normal Reason for continued inpatient stay Substantial Risk for: inability to function, rapid decompensation and med/psych decompensation Time Spent With Patient Time: Total time managing care of this patient today __20__ minutes.
--- NOTE | 2024-10-07 08:51 | PC.NURSE ---
Imani's VS this morning were: 189/[address] Reed made aware via [employer]. Imani also refused her morning medications and her breakfast despite multiple attempts to feed pt. Dr. Reed made aware via [employer].
[2024-10-07 09:34] LABS: Alanine Aminotransferase 14 U/L (0-31); Albumin Level 3.3 g/dL (3.5-5.0); Alkaline Phosphatase 147 U/L (39-117); Anion Gap 12 (12-20); Aspartate Amino Transferase 26 U/L (5-31); Bilirubin Total 0.3 mg/dL (0.0-1.0); Blood Urea Nitrogen 12 mg/dL (9-16); Calcium 8.6 mg/dL (8.4-10.2); Carbon Dioxide 23 mmol/L (22-29); Chloride 110 mmol/L (96-108); Creatinine Clr Calc Pharmacy 47.2; Estimated Glomerular Filt Rate > 60; Glucose Fasting 97 mg/dL (60-99); Potassium 3.7 mmol/L (3.3-5.1); Sodium 141 mmol/L (135-145); Total Protein 6.5 g/dL (6.5-8.0)
--- NOTE | 2024-10-07 14:19 | MHC.CLN ---
F/U REGULAR DIET. ENSURE TID PROVIDES ADDITIONAL 1050 KCALS, 60 G PROTEIN. 1:1 SUPERVISION WITH MEALS. EATS SLOWLY. RECEIVED IV FLUIDS / DUE TO POOR PO AND LETHARGY. CONTINUE CURRENT DIET AND SUPPLEMENT. ENCOURAGE INTAKE OF MEALS, SUPPLEMENTS, SNACKS ABLE. RD TO FOLLOW WEEKLY.
[2024-10-07 20:00] VITALS: BP 136/89; PULSE 83; RESP 16; TEMP 36.6; O2SAT 93
[2024-10-07] MEDS: Atorvastatin Calcium 10 MG TABLET PO (20:10)
[2024-10-07] MEDS: Famotidine 20 MG TABLET PO (20:10)
[2024-10-07] MEDS: Memantine HCl 5 MG TABLET PO (20:10)
[2024-10-08] MEDS: 0.9 % Sodium Chloride Flush 3 ML SYRINGE IVFLUSH ×3 (00:21→15:25)
[2024-10-08 12:38] VITALS: BP 102/51; PULSE 68; RESP 16; TEMP 36.9; O2SAT 94
--- NOTE | 2024-10-08 15:31 | PC.NURSE ---
Attempted to flush IV right hand today at 1520, IV was blown and leaking. OK to discontinue IV per Dr. Reed. IV removed at 1529, no signs or symptoms of complications at old insertion site. Patient tolerated the procedure well.
--- NOTE | 2024-10-08 16:02 | P.PNPSI_ITS ---
Subjective Subjective Date of Service: 10/08/24 Reason For Visit: Dementia Subjective Notes: Section 7 and Section 8 Interim History: The nursing staff reported the patient has refused her medications she drank ensure and she has difficult to engage. She slept 7 hours. On interview the patient reports no new symptoms she states that she is feels okay. We are restarting Risperdal 1 mg p.o. q.h.s. Mental Status Exam Mental Status Exam Patient Appearance: Appropriate Patient Orientation: Person and Situation Level of Consciousness: Awake and Appropriate Patient Behavior: Guarded and Passive Mood Description: Withdrawn Affect Description: Constricted Patient Cognition Impaired: Yes Ability to Follow Directions: Good Speech Pattern: Clear Hallucinations: None Delusions: Not Present Thought Process: Distracted and Slowed Thinking Thought Content: positive for [place] and positive for Poverty of Content Judgement: Fair Diagnostics Vital Signs (24Hr): Vital Signs - 24 hr 10/07/24 20:00 10/08/24 12:38 Temperature 97.9 F 98.4 F Pulse Rate 83 68 Respiratory Rate 16 16 Blood Pressure 136/89 102/51 L Pulse Oximetry 93 94 Oxygen Delivery Method Room Air Room Air BMI result Body Mass Index 15.4 Labs 10/06/24 13:14 10/07/24 08:43 Labs: Laboratory Results - last 48 hr 10/07/24 08:43 Sodium 141 Potassium 3.7 Chloride 110 H Carbon Dioxide 23 Anion Gap 12 BUN 12 Creatinine 0.68 Estim Creat Clear Calc 47.2 Estimated GFR > 60 Fasting Glucose 97 Calcium 8.6 D Total Bilirubin 0.3 AST 26 ALT 14 Alkaline Phosphatase 147 H Total Protein 6.5 Albumin 3.3 L Medications Medications Current Medications Acetaminophen (Acetaminophen 325 Mg Tablet) 650 mg PO Q6H PRN PRN Reason: Headache/Pain Mild Scale (1-3) Last Admin: 09/16/24 16:25 Dose: 650 mg Al Hydroxide/Mg Hydroxide (Magnesium Hydrox/Alum Hydrox 30 Ml Oral.Susp) 30 ml PO Q6H PRN PRN Reason: Heartburn/Nausea Aspirin (Aspirin 81 Mg Tab.Chew) 81 mg PO DAILY [facility] Last Admin: 10/08/24 10:23 Dose: Not Given Atorvastatin Calcium (Atorvastatin Calcium 10 Mg Tablet) 10 mg PO BEDTIME [facility] Last Admin: 10/07/24 20:10 Dose: 10 mg Famotidine (Famotidine 20 Mg Tablet) 20 mg PO BID [facility] Last Admin: 10/08/24 10:23 Dose: Not Given Magnesium Hydroxide (Milk Of Magnesia 30 Ml Oral.Susp) 30 ml PO DAILY PRN PRN Reason: Constipation Memantine (Memantine Hcl 5 Mg Tablet) 5 mg PO BID [facility] Last Admin: 10/08/24 10:23 Dose: Not Given Risperidone (Risperidone 0.5 Mg Tablet) 0.5 mg PO BID PRN PRN Reason: Psychosis Risperidone (Risperidone 1 Mg Tablet) 1 mg PO BEDTIME [facility] Allergies Allergies Allergy/AdvReac Type Severity Reaction Status Date / Time No Known Allergies Allergy Verified 09/10/24 13:00 Assessment & Plan Assessment & Plan (1) Major neurocognitive disorder due to Alzheimer's disease: Status: Acute Code(s): G30.9 - Alzheimer's disease, unspecified; F02.80 - Dementia in other diseases classified elsewhere, unspecified severity, without behavioral disturbance, psychotic disturbance, mood disturbance, and anxiety (2) Lethargy: Status: Acute Code(s): R53.83 - Other fatigue Plan Ms. Wilder is a 78 year-old woman with advanced dementia, appears of AD type. She was admitted initially to medicine for treatment of UTI after being found wondering at 2am. She is not delirious. Her presentation is consistent with advanced dementia. She is not oriented to place, situation, month or date. Language deficits along with inability to retain any information to recognize herself in the mirrow or other objects. She has been on aricept but had diarrhea and she is also underweight. Had discussed with guardian while she was on the medical floor risperidone, added low dose clonazepam. PLAN 1. Risperdal was increased that to 1 mg p.o. t.i.d. to target agitation and psychosis so far it has been effective. 2. Continue with other medications. 3. Start working on discharge planning. 10/05/2024 Lower Risperdal to 1 mg at bedtime lower mirtazapine to 15 mg at bedtime patient lethargic somewhat sedated during the day awakens later in the afternoon 10/06/2024 Patient lethargic not eating or drinking past day in spite of not taking medication. Lethargic was seen by internal medicine. Started normal saline intravenous fluids became much more verbal and alert. Patient with significant Alzheimer dementia unclear why patient became so lethargic and unclear if related to medication. Medication hold for now intravenous fluids as needed no pain no obvious infection no fever Check chemistries CBC in the morning 10/08 We decided to restart Risperdal up to 1 mg p.o. q.h.s. after he was discontinue due to over-sedation. We will remove her IV since there was no need blood work came back within normal limits. Reason for continued inpatient stay Substantial Risk for: inability to function, rapid decompensation and med/psych decompensation Time Spent With Patient Time: Total time managing care of this patient today __20__ minutes.
[2024-10-08] MEDS: risperiDONE 0.5 MG TABLET PO (18:30)
[2024-10-08 20:00] VITALS: BP 116/57; PULSE 84; RESP 15; TEMP 36.6; O2SAT 95
--- NOTE | 2024-10-09 07:53 | P.PNPSI_ITS ---
Subjective Subjective Date of Service: 10/09/24 Reason For Visit: Dementia Subjective Notes: Section 7 and Section 8 Interim History: The nursing staff reported the patient showed relaxed affect, her IV was removed since she does not needed and it got infiltrated. She received Risperdal p.r.n. for agitation with for improvement. She refused her medications at night but she had been less agitated and slept well last night. On interview the patient looks pleasantly confused. No changes in her mental status. Mental Status Exam Mental Status Exam Patient Appearance: Appropriate Patient Orientation: Person Level of Consciousness: Awake and Appropriate Patient Behavior: Guarded and Passive Mood Description: Withdrawn Affect Description: Constricted Patient Cognition Impaired: Yes Ability to Follow Directions: Good Speech Pattern: Clear Hallucinations: None Delusions: Paranoid Ideation and Ideas of Reference Thought Process: Distracted and Slowed Thinking Thought Content: positive for [place] and positive for Poverty of Content Judgement: Fair Diagnostics Vital Signs (24Hr): Vital Signs - 24 hr 10/08/24 12:38 10/08/24 20:00 Temperature 98.4 F 98 F Pulse Rate 68 84 Respiratory Rate 16 15 Blood Pressure 102/51 L 116/57 L Pulse Oximetry 94 95 Oxygen Delivery Method Room Air Room Air BMI result Body Mass Index 15.4 Labs 10/06/24 13:14 10/07/24 08:43 Labs: Laboratory Results - last 48 hr 10/07/24 08:43 Sodium 141 Potassium 3.7 Chloride 110 H Carbon Dioxide 23 Anion Gap 12 BUN 12 Creatinine 0.68 Estim Creat Clear Calc 47.2 Estimated GFR > 60 Fasting Glucose 97 Calcium 8.6 D Total Bilirubin 0.3 AST 26 ALT 14 Alkaline Phosphatase 147 H Total Protein 6.5 Albumin 3.3 L Medications Medications Current Medications Acetaminophen (Acetaminophen 325 Mg Tablet) 650 mg PO Q6H PRN PRN Reason: Headache/Pain Mild Scale (1-3) Last Admin: 09/16/24 16:25 Dose: 650 mg Al Hydroxide/Mg Hydroxide (Magnesium Hydrox/Alum Hydrox 30 Ml Oral.Susp) 30 ml PO Q6H PRN PRN Reason: Heartburn/Nausea Aspirin (Aspirin 81 Mg Tab.Chew) 81 mg PO DAILY [facility] Last Admin: 10/08/24 10:23 Dose: Not Given Atorvastatin Calcium (Atorvastatin Calcium 10 Mg Tablet) 10 mg PO BEDTIME [facility] Last Admin: 10/08/24 21:16 Dose: Not Given Famotidine (Famotidine 20 Mg Tablet) 20 mg PO BID [facility] Last Admin: 10/08/24 21:16 Dose: Not Given Magnesium Hydroxide (Milk Of Magnesia 30 Ml Oral.Susp) 30 ml PO DAILY PRN PRN Reason: Constipation Memantine (Memantine Hcl 5 Mg Tablet) 5 mg PO BID [facility] Last Admin: 10/08/24 21:16 Dose: Not Given Risperidone (Risperidone 0.5 Mg Tablet) 0.5 mg PO BID PRN PRN Reason: Psychosis Last Admin: 10/08/24 18:30 Dose: 0.5 mg Risperidone (Risperidone 1 Mg Tablet) 1 mg PO BEDTIME [facility] Last Admin: 10/08/24 21:16 Dose: Not Given Allergies Allergies Allergy/AdvReac Type Severity Reaction Status Date / Time No Known Allergies Allergy Verified 09/10/24 13:00 Assessment & Plan Assessment & Plan (1) Major neurocognitive disorder due to Alzheimer's disease: Status: Acute Code(s): G30.9 - Alzheimer's disease, unspecified; F02.80 - Dementia in other diseases classified elsewhere, unspecified severity, without behavioral disturbance, psychotic disturbance, mood disturbance, and anxiety (2) Lethargy: Status: Acute Code(s): R53.83 - Other fatigue Plan Ms. Wilder is a 78 year-old woman with advanced dementia, appears of AD type. She was admitted initially to medicine for treatment of UTI after being found wondering at 2am. She is not delirious. Her presentation is consistent with advanced dementia. She is not oriented to place, situation, month or date. Language deficits along with inability to retain any information to recognize herself in the mirrow or other objects. She has been on aricept but had diarrhea and she is also underweight. Had discussed with guardian while she was on the medical floor risperidone, added low dose clonazepam. PLAN 1. Risperdal was increased that to 1 mg p.o. t.i.d. to target agitation and psychosis so far it has been effective. 2. Continue with other medications. 3. Start working on discharge planning. 10/05/2024 Lower Risperdal to 1 mg at bedtime lower mirtazapine to 15 mg at bedtime patient lethargic somewhat sedated during the day awakens later in the afternoon 10/06/2024 Patient lethargic not eating or drinking past day in spite of not taking medication. Lethargic was seen by internal medicine. Started normal saline intravenous fluids became much more verbal and alert. Patient with significant Alzheimer dementia unclear why patient became so lethargic and unclear if related to medication. Medication hold for now intravenous fluids as needed no pain no obvious infection no fever Check chemistries CBC in the morning 10/08 We decided to restart Risperdal up to 1 mg p.o. q.h.s. after he was discontinue due to over-sedation. We will remove her IV since there was no need blood work came back within normal limits. Twelve/for continue with same treatment Risperdal 1 mg p.o. q.h.s. and keep p.r.n. Risperdal. Reason for continued inpatient stay Substantial Risk for: inability to function, rapid decompensation and med/psych decompensation Time Spent With Patient Time: Total time managing care of this patient today ___20_ minutes.
[2024-10-09 08:00] VITALS: BP 120/63; PULSE 80; RESP 18; TEMP 36.6; O2SAT 95
[2024-10-10 07:00] VITALS: BMI 14.9
[2024-10-10 08:00] VITALS: BP 126/56; PULSE 82; RESP 20; TEMP 37.1; O2SAT 96
--- NOTE | 2024-10-10 14:18 | P.PNPSI_ITS ---
Subjective Subjective Date of Service: 10/10/24 Reason For Visit: Dementia Subjective Notes: Conditional Voluntary Healthcare Proxy: Yes Interim History: The nursing staff reported the patient slept well last night no changes in her mental status. The social and human services assistant reported the assisted living facility will come to reassess her. On interview the patient is pleasantly confused easily redirectable visible in the common area. Mental Status Exam Mental Status Exam Patient Appearance: Appropriate Patient Orientation: Person and Situation Level of Consciousness: Awake and Appropriate Patient Behavior: Guarded and Passive Mood Description: Withdrawn Affect Description: Constricted Patient Cognition Impaired: Yes Ability to Follow Directions: Good Speech Pattern: Clear Hallucinations: None Delusions: Not Present Thought Process: Distracted and Slowed Thinking Thought Content: positive for [place] and positive for Poverty of Content Judgement: Poor Diagnostics Vital Signs (24Hr): Vital Signs - 24 hr 10/10/24 08:00 Temperature 98.7 F Pulse Rate 82 Respiratory Rate 20 Blood Pressure 126/56 L Pulse Oximetry 96 Oxygen Delivery Method Room Air BMI result Body Mass Index 15.4 Labs 10/06/24 13:14 10/07/24 08:43 Medications Medications Current Medications Acetaminophen (Acetaminophen 325 Mg Tablet) 650 mg PO Q6H PRN PRN Reason: Headache/Pain Mild Scale (1-3) Last Admin: 09/16/24 16:25 Dose: 650 mg Al Hydroxide/Mg Hydroxide (Magnesium Hydrox/Alum Hydrox 30 Ml Oral.Susp) 30 ml PO Q6H PRN PRN Reason: Heartburn/Nausea Aspirin (Aspirin 81 Mg Tab.Chew) 81 mg PO DAILY [facility] Last Admin: 10/10/24 08:46 Dose: Not Given Atorvastatin Calcium (Atorvastatin Calcium 10 Mg Tablet) 10 mg PO BEDTIME [facility] Last Admin: 10/09/24 21:01 Dose: Not Given Famotidine (Famotidine 20 Mg Tablet) 20 mg PO BID [facility] Last Admin: 10/10/24 08:46 Dose: Not Given Magnesium Hydroxide (Milk Of Magnesia 30 Ml Oral.Susp) 30 ml PO DAILY PRN PRN Reason: Constipation Memantine (Memantine Hcl 5 Mg Tablet) 5 mg PO BID [facility] Last Admin: 10/10/24 08:46 Dose: Not Given Risperidone (Risperidone 0.5 Mg Tablet) 0.5 mg PO BID PRN PRN Reason: Psychosis Last Admin: 10/08/24 18:30 Dose: 0.5 mg Risperidone (Risperidone 1 Mg Tablet) 1 mg PO BEDTIME [facility] Last Admin: 10/09/24 21:01 Dose: Not Given Allergies Allergies Allergy/AdvReac Type Severity Reaction Status Date / Time No Known Allergies Allergy Verified 09/10/24 13:00 Assessment & Plan Assessment & Plan (1) Major neurocognitive disorder due to Alzheimer's disease: Status: Acute Code(s): G30.9 - Alzheimer's disease, unspecified; F02.80 - Dementia in other diseases classified elsewhere, unspecified severity, without behavioral disturbance, psychotic disturbance, mood disturbance, and anxiety (2) Lethargy: Status: Acute Code(s): R53.83 - Other fatigue Plan Ms. Wilder is a 78 year-old woman with advanced dementia, appears of AD type. She was admitted initially to medicine for treatment of UTI after being found wondering at 2am. She is not delirious. Her presentation is consistent with advanced dementia. She is not oriented to place, situation, month or date. Language deficits along with inability to retain any information to recognize herself in the mirrow or other objects. She has been on aricept but had diarrhea and she is also underweight. Had discussed with guardian while she was on the medical floor risperidone, added low dose clonazepam. PLAN 1. Risperdal was increased that to 1 mg p.o. t.i.d. to target agitation and psychosis so far it has been effective. 2. Continue with other medications. 3. Start working on discharge planning. 10/05/2024 Lower Risperdal to 1 mg at bedtime lower mirtazapine to 15 mg at bedtime patient lethargic somewhat sedated during the day awakens later in the afternoon 10/06/2024 Patient lethargic not eating or drinking past day in spite of not taking medication. Lethargic was seen by internal medicine. Started normal saline intravenous fluids became much more verbal and alert. Patient with significant Alzheimer dementia unclear why patient became so lethargic and unclear if related to medication. Medication hold for now intravenous fluids as needed no pain no obvious infection no fever Check chemistries CBC in the morning 10/08 We decided to restart Risperdal up to 1 mg p.o. q.h.s. after he was discontinue due to over-sedation. We will remove her IV since there was no need blood work came back within normal limits. Twelve/for continue with same treatment Risperdal 1 mg p.o. q.h.s. and keep p.r.n. Risperdal. 10/10 continue same treatment Reason for continued inpatient stay Substantial Risk for: inability to function, rapid decompensation and med/psych decompensation Time Spent With Patient Time: Total time managing care of this patient today __20__ minutes.
[2024-10-10 20:00] VITALS: BP 135/61; PULSE 68; RESP 16; TEMP 36.2; O2SAT 95
[2024-10-11 08:00] VITALS: BP 122/58; PULSE 65; RESP 16; TEMP 36.2; O2SAT 95
--- NOTE | 2024-10-11 08:24 | P.PNPSI_ITS ---
Subjective Subjective Date of Service: 10/11/24 Reason For Visit: Dementia Subjective Notes: Conditional Voluntary Healthcare Proxy: Yes Interim History: The nursing staff reported the patient had been isolative in her room, visible in the unit at times. Apparently she had been noncompliant of Risperdal for the last 3 days. Mental Status Exam Mental Status Exam Patient Appearance: Appropriate Patient Orientation: Person and Situation Level of Consciousness: Awake and Appropriate Patient Behavior: Guarded and Passive Mood Description: Withdrawn Affect Description: Constricted Patient Cognition Impaired: Yes Ability to Follow Directions: Good Speech Pattern: Clear Hallucinations: None Delusions: Not Present Thought Process: Distracted and Slowed Thinking Thought Content: positive for [place] and positive for Poverty of Content Judgement: Fair Diagnostics Vital Signs (24Hr): Vital Signs - 24 hr 10/10/24 20:00 10/11/24 08:00 Temperature 97.2 F 97.1 F Pulse Rate 68 65 Respiratory Rate 16 16 Blood Pressure 135/61 122/58 L Pulse Oximetry 95 95 Oxygen Delivery Method Room Air Room Air BMI result Body Mass Index 14.9 Labs 10/06/24 13:14 10/07/24 08:43 Medications Medications Current Medications Acetaminophen (Acetaminophen 325 Mg Tablet) 650 mg PO Q6H PRN PRN Reason: Headache/Pain Mild Scale (1-3) Last Admin: 09/16/24 16:25 Dose: 650 mg Al Hydroxide/Mg Hydroxide (Magnesium Hydrox/Alum Hydrox 30 Ml Oral.Susp) 30 ml PO Q6H PRN PRN Reason: Heartburn/Nausea Aspirin (Aspirin 81 Mg Tab.Chew) 81 mg PO DAILY [facility] Last Admin: 10/10/24 08:46 Dose: Not Given Atorvastatin Calcium (Atorvastatin Calcium 10 Mg Tablet) 10 mg PO BEDTIME [facility] Last Admin: 10/10/24 21:14 Dose: Not Given Famotidine (Famotidine 20 Mg Tablet) 20 mg PO BID [facility] Last Admin: 10/10/24 21:15 Dose: Not Given Magnesium Hydroxide (Milk Of Magnesia 30 Ml Oral.Susp) 30 ml PO DAILY PRN PRN Reason: Constipation Memantine (Memantine Hcl 5 Mg Tablet) 5 mg PO BID [facility] Last Admin: 10/10/24 21:15 Dose: Not Given Risperidone (Risperidone 0.5 Mg Tablet) 0.5 mg PO BID PRN PRN Reason: Psychosis Last Admin: 10/08/24 18:30 Dose: 0.5 mg Risperidone (Risperidone 1 Mg Tablet) 1 mg PO BEDTIME [facility] Last Admin: 10/10/24 21:15 Dose: Not Given Allergies Allergies Allergy/AdvReac Type Severity Reaction Status Date / Time No Known Allergies Allergy Verified 09/10/24 13:00 Assessment & Plan Assessment & Plan (1) Major neurocognitive disorder due to Alzheimer's disease: Status: Acute Code(s): G30.9 - Alzheimer's disease, unspecified; F02.80 - Dementia in other diseases classified elsewhere, unspecified severity, without behavioral disturbance, psychotic disturbance, mood disturbance, and anxiety (2) Lethargy: Status: Acute Code(s): R53.83 - Other fatigue Plan Ms. Wilder is a 78 year-old woman with advanced dementia, appears of AD type. She was admitted initially to medicine for treatment of UTI after being found wondering at 2am. She is not delirious. Her presentation is consistent with advanced dementia. She is not oriented to place, situation, month or date. Language deficits along with inability to retain any information to recognize herself in the mirrow or other objects. She has been on aricept but had diarrhea and she is also underweight. Had discussed with guardian while she was on the medical floor risperidone, added low dose clonazepam. PLAN 1. Risperdal was increased that to 1 mg p.o. t.i.d. to target agitation and psychosis so far it has been effective. 2. Continue with other medications. 3. Start working on discharge planning. 10/05/2024 Lower Risperdal to 1 mg at bedtime lower mirtazapine to 15 mg at bedtime patient lethargic somewhat sedated during the day awakens later in the afternoon 10/06/2024 Patient lethargic not eating or drinking past day in spite of not taking medication. Lethargic was seen by internal medicine. Started normal saline intravenous fluids became much more verbal and alert. Patient with significant Alzheimer dementia unclear why patient became so lethargic and unclear if related to medication. Medication hold for now intravenous fluids as needed no pain no obvious infection no fever Check chemistries CBC in the morning 10/08 We decided to restart Risperdal up to 1 mg p.o. q.h.s. after he was discontinue due to over-sedation. We will remove her IV since there was no need blood work came back within normal limits. continue with same treatment Risperdal 1 mg p.o. q.h.s. and keep p.r.n. Risperdal. 10/10 continue same treatment 10/11 continue same treatment common cataracts compliance. Reason for continued inpatient stay Substantial Risk for: inability to function, rapid decompensation and med/psych decompensation Time Spent With Patient Time: Total time managing care of this patient today __20__ minutes.
--- NOTE | 2024-10-11 08:41 | PC.NURSE ---
Imani refused all of her morning meds. Dr Reed made aware via [employer].
--- NOTE | 2024-10-11 15:01 | MHC.CLN ---
F/U REGULAR DIET. ENSURE TID PROVIDES ADDITIONAL 1050 KCALS, 60 G PROTEIN. 1:1 SUPERVISION WITH MEALS. EATS SLOWLY. INTAKE USUALLY VERY POOR. ENCOURAGE INTAKE OF MEALS, SUPPLEMENTS, SNACKS ABLE. RD TO FOLLOW WEEKLY.
[2024-10-11 20:00] VITALS: BP 131/64; PULSE 78; RESP 16; TEMP 37.1; O2SAT 98
[2024-10-12 08:00] VITALS: BP 122/62; PULSE 76; RESP 16; TEMP 36.8; O2SAT 98
--- NOTE | 2024-10-12 08:02 | HO.PSYCHPN ---
Subjective Subjective Date of Service: 10/12/24 Reason For Visit: Dementia Subjective Notes: Section 7 and Section 8 Interim History: continues to be nonadherent with medications. Intermittently yelling. Also pleasant at times. With blog writer is pleasant. Reports she likes the people at work here and the other patients. Reports that they help her when she asks for things, but otherwise does not feel she needs to be in the hospital. Medication Compliance: No Side effects from medications: No Attending Groups: Intermittent Review of Systems Acute medical concerns: No Review of Systems Review of Systems Unremarkable Mental Status Exam Mental Status Exam Narrative: In day area, adequately dressed and groomed. Cooperative. no PMA/PMR. poor eye contact. speech nml rate, loudness. decr amount. thoughts superficial and linear. concrete, paucity. affect constricted, hypo-intense. mood euthymic. no SI/HI/AVH expressed. Diagnostics Vital Signs (24Hr): Vital Signs - 24 hr 10/11/24 20:00 Temperature 98.7 F Pulse Rate 78 Respiratory Rate 16 Blood Pressure 131/64 Pulse Oximetry 98 BMI result Body Mass Index 14.9 Labs 10/06/24 13:14 10/07/24 08:43 Medications Medications Current Medications Acetaminophen (Acetaminophen 325 Mg Tablet) 650 mg PO Q6H PRN PRN Reason: Headache/Pain Mild Scale (1-3) Last Admin: 09/16/24 16:25 Dose: 650 mg Al Hydroxide/Mg Hydroxide (Magnesium Hydrox/Alum Hydrox 30 Ml Oral.Susp) 30 ml PO Q6H PRN PRN Reason: Heartburn/Nausea Aspirin (Aspirin 81 Mg Tab.Chew) 81 mg PO DAILY [facility] Last Admin: 10/11/24 08:50 Dose: Not Given Atorvastatin Calcium (Atorvastatin Calcium 10 Mg Tablet) 10 mg PO BEDTIME [facility] Last Admin: 10/11/24 20:06 Dose: Not Given Famotidine (Famotidine 20 Mg Tablet) 20 mg PO DAILY [facility] Magnesium Hydroxide (Milk Of Magnesia 30 Ml Oral.Susp) 30 ml PO DAILY PRN PRN Reason: Constipation Memantine (Memantine Hcl 5 Mg Tablet) 5 mg PO BID [facility] Last Admin: 10/11/24 20:06 Dose: Not Given Risperidone (Risperidone 0.5 Mg Tablet) 0.5 mg PO BID PRN PRN Reason: Psychosis Last Admin: 10/08/24 18:30 Dose: 0.5 mg Risperidone (Risperidone 1 Mg Tablet) 1 mg PO BEDTIME [facility] Last Admin: 10/11/24 20:06 Dose: Not Given Allergies Allergies Allergy/AdvReac Type Severity Reaction Status Date / Time No Known Allergies Allergy Verified 09/10/24 13:00 Assessment & Plan Assessment & Plan (1) Major neurocognitive disorder due to Alzheimer's disease: Status: Acute Code(s): G30.9 - Alzheimer's disease, unspecified; F02.80 - Dementia in other diseases classified elsewhere, unspecified severity, without behavioral disturbance, psychotic disturbance, mood disturbance, and anxiety (2) Lethargy: Status: Acute Code(s): R53.83 - Other fatigue Plan Ms. Wilder is a 78 year-old woman with advanced dementia, appears of AD type. She was admitted initially to medicine for treatment of UTI after being found wondering at 2am. She is not delirious. Her presentation is consistent with advanced dementia. She is not oriented to place, situation, month or date. Language deficits along with inability to retain any information to recognize herself in the mirrow or other objects. She has been on aricept but had diarrhea and she is also underweight. Had discussed with guardian while she was on the medical floor risperidone, added low dose clonazepam. PLAN 1. Risperdal was increased that to 1 mg p.o. t.i.d. to target agitation and psychosis so far it has been effective. 2. Continue with other medications. 3. Start working on discharge planning. 10/05/2024 Lower Risperdal to 1 mg at bedtime lower mirtazapine to 15 mg at bedtime patient lethargic somewhat sedated during the day awakens later in the afternoon 10/06/2024 Patient lethargic not eating or drinking past day in spite of not taking medication. Lethargic was seen by internal medicine. Started normal saline intravenous fluids became much more verbal and alert. Patient with significant Alzheimer dementia unclear why patient became so lethargic and unclear if related to medication. Medication hold for now intravenous fluids as needed no pain no obvious infection no fever Check chemistries CBC in the morning 10/08 We decided to restart Risperdal up to 1 mg p.o. q.h.s. after he was discontinue due to over-sedation. We will remove her IV since there was no need blood work came back within normal limits. continue with same treatment Risperdal 1 mg p.o. q.h.s. and keep p.r.n. Risperdal. 10/10 continue same treatment 10/12/2024: Continue to encourage medication adherence. Reason for continued inpatient stay Substantial Risk for: rapid decompensation Time Spent With Patient Time: Total time managing care of this patient today ____ minutes.
[2024-10-12] MEDS: risperiDONE 0.5 MG TABLET PO (11:59)
[2024-10-12 20:00] VITALS: BP 121/63; PULSE 78; RESP 16; TEMP 36.6; O2SAT 97
[2024-10-13 08:00] VITALS: BP 124/60; PULSE 75; RESP 16; TEMP 37; O2SAT 97
[2024-10-13] MEDS: Famotidine 20 MG TABLET PO (09:11)
[2024-10-13] MEDS: Aspirin 81 MG TAB.CHEW PO (09:12)
[2024-10-13] MEDS: Memantine HCl 5 MG TABLET PO ×2 (09:12→20:01)
--- NOTE | 2024-10-13 10:12 | P.PNPSI_ITS ---
Subjective Subjective Date of Service: 10/13/24 Reason For Visit: Dementia Subjective Notes: Section 7 and Section 8 Interim History: Continues to be decline medications. IN bed, clear dementia evident I need your help , I don't know what that would be though , what help did I say I needed? . Denied paranoia or safety concerns or SI, HI. Medication Compliance: No Side effects from medications: No Attending Groups: No Review of Systems Acute medical concerns: No Review of Systems Review of Systems Unremarkable Mental Status Exam Mental Status Exam Narrative: In room, adequately dressed and groomed. Cooperative. no PMA/PMR. poor eye contact. speech nml rate, loudness. decr amount. thoughts superficial and linear. concrete, paucity. affect constricted, hypo-intense. mood euthymic. no SI/HI/AVH expressed. Diagnostics Vital Signs (24Hr): Vital Signs - 24 hr 10/12/24 20:00 10/13/24 08:00 Temperature 97.8 F 98.6 F Pulse Rate 78 75 Respiratory Rate 16 16 Blood Pressure 121/63 124/60 Pulse Oximetry 97 97 Oxygen Delivery Method Room Air Room Air BMI result Body Mass Index 14.9 Labs 10/06/24 13:14 10/07/24 08:43 Medications Medications Current Medications Acetaminophen (Acetaminophen 325 Mg Tablet) 650 mg PO Q6H PRN PRN Reason: Headache/Pain Mild Scale (1-3) Last Admin: 09/16/24 16:25 Dose: 650 mg Al Hydroxide/Mg Hydroxide (Magnesium Hydrox/Alum Hydrox 30 Ml Oral.Susp) 30 ml PO Q6H PRN PRN Reason: Heartburn/Nausea Aspirin (Aspirin 81 Mg Tab.Chew) 81 mg PO DAILY [facility] Last Admin: 10/13/24 09:12 Dose: 81 mg Atorvastatin Calcium (Atorvastatin Calcium 10 Mg Tablet) 10 mg PO BEDTIME [facility] Last Admin: 10/12/24 20:18 Dose: Not Given Famotidine (Famotidine 20 Mg Tablet) 20 mg PO DAILY [facility] Last Admin: 10/13/24 09:11 Dose: 20 mg Magnesium Hydroxide (Milk Of Magnesia 30 Ml Oral.Susp) 30 ml PO DAILY PRN PRN Reason: Constipation Memantine (Memantine Hcl 5 Mg Tablet) 5 mg PO BID [facility] Last Admin: 10/13/24 09:12 Dose: 5 mg Risperidone (Risperidone 0.5 Mg Tablet) 0.5 mg PO BID PRN PRN Reason: Psychosis Last Admin: 10/12/24 11:59 Dose: 0.5 mg Risperidone (Risperidone 1 Mg Tablet) 1 mg PO BEDTIME [facility] Last Admin: 10/12/24 20:19 Dose: Not Given Allergies Allergies Allergy/AdvReac Type Severity Reaction Status Date / Time No Known Allergies Allergy Verified 09/10/24 13:00 Assessment & Plan Assessment & Plan (1) Major neurocognitive disorder due to Alzheimer's disease: Status: Acute Code(s): G30.9 - Alzheimer's disease, unspecified; F02.80 - Dementia in other diseases classified elsewhere, unspecified severity, without behavioral disturbance, psychotic disturbance, mood disturbance, and anxiety (2) Lethargy: Status: Acute Code(s): R53.83 - Other fatigue Plan Ms. Wilder is a 78 year-old woman with advanced dementia, appears of AD type. She was admitted initially to medicine for treatment of UTI after being found wondering at 2am. She is not delirious. Her presentation is consistent with advanced dementia. She is not oriented to place, situation, month or date. Language deficits along with inability to retain any information to recognize herself in the mirrow or other objects. She has been on aricept but had diarrhea and she is also underweight. Had discussed with guardian while she was on the medical floor risperidone, added low dose clonazepam. PLAN 1. Risperdal was increased that to 1 mg p.o. t.i.d. to target agitation and psychosis so far it has been effective. 2. Continue with other medications. 3. Start working on discharge planning. 10/05/2024 Lower Risperdal to 1 mg at bedtime lower mirtazapine to 15 mg at bedtime patient lethargic somewhat sedated during the day awakens later in the afternoon 10/06/2024 Patient lethargic not eating or drinking past day in spite of not taking medication. Lethargic was seen by internal medicine. Started normal saline intravenous fluids became much more verbal and alert. Patient with significant Alzheimer dementia unclear why patient became so lethargic and unclear if related to medication. Medication hold for now intravenous fluids as needed no pain no obvious infection no fever Check chemistries CBC in the morning 10/08 We decided to restart Risperdal up to 1 mg p.o. q.h.s. after he was discontinue due to over-sedation. We will remove her IV since there was no need blood work came back within normal limits. continue with same treatment Risperdal 1 mg p.o. q.h.s. and keep p.r.n. Risperdal. 10/10 continue same treatment 10/13/2024: Continue to encourage medication adherence. Unable to care for self Reason for continued inpatient stay Substantial Risk for: inability to function Time Spent With Patient Time: Total time managing care of this patient today ____ minutes.
[2024-10-13] MEDS: risperiDONE 0.5 MG TABLET PO ×2 (15:31→20:01)
[2024-10-13 20:00] VITALS: BP 134/56; PULSE 85; RESP 18; TEMP 36.8; O2SAT 97
[2024-10-13] MEDS: Atorvastatin Calcium 10 MG TABLET PO (20:01)
[2024-10-13] MEDS: risperiDONE 1 MG TABLET PO (20:01)
[2024-10-14 08:00] VITALS: BP 124/54; PULSE 57; RESP 18; TEMP 36; O2SAT 99
[2024-10-14] MEDS: Memantine HCl 5 MG TABLET PO ×2 (09:48→21:18)
[2024-10-14] MEDS: Aspirin 81 MG TAB.CHEW PO (09:48)
[2024-10-14] MEDS: Famotidine 20 MG TABLET PO (09:48)
--- NOTE | 2024-10-14 11:00 | HO.PSYCHPN ---
Subjective Subjective Date of Service: 10/14/24 Reason For Visit: Dementia Subjective Notes: Conditional Voluntary Interim History: The nursing staff reported the patient had been combative with care, she had not be eating very well and she recounts reclusive. The staff has noticed that the patient's p.r.n. Risperdal 0.5 he is not working. On interview the patient denies new symptoms, we discussed options and she agreed increase medications a little. Risperdal increased up to 1 mg p.o. 12 30 and 1 mg at bedtime and the p.r.n. was increased up to 1 mg p.o. b.i.d. The licensed master social worker reported that the staff from the assisted living facility, they will come and assess her. Mental Status Exam Mental Status Exam Patient Appearance: Appropriate Patient Orientation: Person and Situation Level of Consciousness: Awake and Appropriate Patient Behavior: Guarded and Passive Mood Description: Calm Affect Description: Constricted Patient Cognition Impaired: Yes Ability to Follow Directions: Fair Speech Pattern: Clear Hallucinations: None Delusions: Paranoid Ideation and Ideas of Reference Thought Process: Distracted and Slowed Thinking Thought Content: positive for [place] and positive for Poverty of Content Judgement: Poor Diagnostics Vital Signs (24Hr): Vital Signs - 24 hr 10/13/24 20:00 10/14/24 08:00 Temperature 98.3 F 96.8 F Pulse Rate 85 57 Respiratory Rate 18 18 Blood Pressure 134/56 L 124/54 L Pulse Oximetry 97 99 Oxygen Delivery Method Room Air Room Air BMI result Body Mass Index 14.9 Labs 10/06/24 13:14 10/07/24 08:43 Medications Medications Current Medications Acetaminophen (Acetaminophen 325 Mg Tablet) 650 mg PO Q6H PRN PRN Reason: Headache/Pain Mild Scale (1-3) Last Admin: 09/16/24 16:25 Dose: 650 mg Al Hydroxide/Mg Hydroxide (Magnesium Hydrox/Alum Hydrox 30 Ml Oral.Susp) 30 ml PO Q6H PRN PRN Reason: Heartburn/Nausea Aspirin (Aspirin 81 Mg Tab.Chew) 81 mg PO DAILY [facility] Last Admin: 10/14/24 09:48 Dose: 81 mg Atorvastatin Calcium (Atorvastatin Calcium 10 Mg Tablet) 10 mg PO BEDTIME [facility] Last Admin: 10/13/24 20:01 Dose: 10 mg Famotidine (Famotidine 20 Mg Tablet) 20 mg PO DAILY [facility] Last Admin: 10/14/24 09:48 Dose: 20 mg Magnesium Hydroxide (Milk Of Magnesia 30 Ml Oral.Susp) 30 ml PO DAILY PRN PRN Reason: Constipation Memantine (Memantine Hcl 5 Mg Tablet) 5 mg PO BID [facility] Last Admin: 10/14/24 09:48 Dose: 5 mg Risperidone (Risperidone 1 Mg Tablet) 1 mg PO BEDTIME [facility] Last Admin: 10/13/24 20:01 Dose: 1 mg Risperidone (Risperidone 1 Mg Tablet) 1 mg PO BID PRN PRN Reason: Psychosis Risperidone (Risperidone 1 Mg Tablet) 1 mg PO DAILY@1230 [facility] Allergies Allergies Allergy/AdvReac Type Severity Reaction Status Date / Time No Known Allergies Allergy Verified 09/10/24 13:00 Assessment & Plan Assessment & Plan (1) Major neurocognitive disorder due to Alzheimer's disease: Status: Acute Code(s): G30.9 - Alzheimer's disease, unspecified; F02.80 - Dementia in other diseases classified elsewhere, unspecified severity, without behavioral disturbance, psychotic disturbance, mood disturbance, and anxiety (2) Lethargy: Status: Acute Code(s): R53.83 - Other fatigue Plan Ms. Wilder is a 78 year-old woman with advanced dementia, appears of AD type. She was admitted initially to medicine for treatment of UTI after being found wondering at 2am. She is not delirious. Her presentation is consistent with advanced dementia. She is not oriented to place, situation, month or date. Language deficits along with inability to retain any information to recognize herself in the mirrow or other objects. She has been on aricept but had diarrhea and she is also underweight. Had discussed with guardian while she was on the medical floor risperidone, added low dose clonazepam. PLAN 1. Risperdal was increased that to 1 mg p.o. t.i.d. to target agitation and psychosis so far it has been effective. 2. Continue with other medications. 3. Start working on discharge planning. 4. Risperdal was discontinued and the beginning of October so we restarted the on a slow titration up to 1 mg p.o. q.h.s. and 1 mg p.o. at noon on October 14. PRNs increased up to 1 mg p.o. b.i.d. on October 14. Reason for continued inpatient stay Substantial Risk for: inability to function, rapid decompensation and med/psych decompensation Time Spent With Patient Time: Total time managing care of this patient today __20__ minutes.
[2024-10-14] MEDS: risperiDONE 1 MG TABLET PO ×3 (12:42→21:19)
[2024-10-14 20:00] VITALS: BP 148/65; PULSE 66; RESP 16; TEMP 36.7; O2SAT 98
[2024-10-14] MEDS: Atorvastatin Calcium 10 MG TABLET PO (21:19)
[2024-10-15 08:00] VITALS: BP 124/60; PULSE 60; RESP 16; TEMP 36.4; O2SAT 95
[2024-10-15] MEDS: Memantine HCl 5 MG TABLET PO ×2 (08:44→20:24)
[2024-10-15] MEDS: Aspirin 81 MG TAB.CHEW PO (08:44)
[2024-10-15] MEDS: Famotidine 20 MG TABLET PO (08:44)
[2024-10-15] MEDS: risperiDONE 1 MG TABLET PO ×2 (11:26→20:24)
[2024-10-15 12:30] LABS: Appearance Urine Turbid; Color Urine Yellow; Glucose Urine UA Negative (Negative); Leukocyte Esterase Urine Large (3+) (Negative); Nitrite Urine Positive (Negative); UMIC TRIGGER UACC YES; Urine Blood Small (1+) (Negative); Urine Ketones Negative (Negative); Urine Protein Trace mg/dL (Neg-Trace)
[2024-10-15 12:49] LABS: Bacteria Urine 4+ (None Seen); RBC Urine 0-2 /HPF (0-2); UACC Culture Trigger YES; WBC Clumps Urine Present; WBC Urine >50 /HPF (0-5)
--- NOTE | 2024-10-15 16:02 | P.PNPSI_ITS ---
Subjective Subjective Date of Service: 10/15/24 Reason For Visit: Dementia Subjective Notes: Conditional Voluntary Interim History: The nursing staff reported the patient had been resistive with care confused irritable at times but compliant with treatment. The psychologist social reported that we will have a family meeting today. During the family meeting her niece reported that at baseline she used to be highly functional but she had declined in the last years. On interview the patient denies new symptoms, waiting for placement Mental Status Exam Mental Status Exam Patient Appearance: Appropriate Patient Orientation: Person and Situation Level of Consciousness: Awake and Appropriate Patient Behavior: Guarded and Passive Mood Description: Withdrawn Affect Description: Constricted Patient Cognition Impaired: Yes Ability to Follow Directions: Good Speech Pattern: Clear Hallucinations: None Delusions: Not Present Thought Process: Distracted and Slowed Thinking Thought Content: positive for [place] and positive for Poverty of Content Judgement: Fair Diagnostics Vital Signs (24Hr): Vital Signs - 24 hr 10/14/24 20:00 10/15/24 08:00 Temperature 98.0 F 97.6 F Pulse Rate 66 60 Respiratory Rate 16 16 Blood Pressure 148/65 H 124/60 Pulse Oximetry 98 95 Oxygen Delivery Method Room Air Room Air BMI result Body Mass Index 14.9 Labs 10/06/24 13:14 10/07/24 08:43 Labs: Laboratory Results - last 48 hr 10/15/24 12:15 Urine Color Yellow Urine Appearance Turbid Urine pH 6.0 Ur Specific [place] 1.010 Urine Protein Trace Urine Glucose (UA) Negative Urine Ketones Negative Urine Blood Small (1+) H Urine Nitrite Positive H Ur Leukocyte Esterase Large (3+) H Urine RBC 0-2 Urine WBC >50 H Urine WBC Clumps Present Ur Squamous Epith Cells 3-5 Urine Bacteria 4+ Hyaline Casts 3-5 Medications Medications Current Medications Acetaminophen (Acetaminophen 325 Mg Tablet) 650 mg PO Q6H PRN PRN Reason: Headache/Pain Mild Scale (1-3) Last Admin: 09/16/24 16:25 Dose: 650 mg Al Hydroxide/Mg Hydroxide (Magnesium Hydrox/Alum Hydrox 30 Ml Oral.Susp) 30 ml PO Q6H PRN PRN Reason: Heartburn/Nausea Aspirin (Aspirin 81 Mg Tab.Chew) 81 mg PO DAILY [facility] Last Admin: 10/15/24 08:44 Dose: 81 mg Atorvastatin Calcium (Atorvastatin Calcium 10 Mg Tablet) 10 mg PO BEDTIME [facility] Last Admin: 10/14/24 21:19 Dose: 10 mg Famotidine (Famotidine 20 Mg Tablet) 20 mg PO DAILY [facility] Last Admin: 10/15/24 08:44 Dose: 20 mg Magnesium Hydroxide (Milk Of Magnesia 30 Ml Oral.Susp) 30 ml PO DAILY PRN PRN Reason: Constipation Memantine (Memantine Hcl 5 Mg Tablet) 5 mg PO BID [facility] Last Admin: 10/15/24 08:44 Dose: 5 mg Risperidone (Risperidone 1 Mg Tablet) 1 mg PO BEDTIME [facility] Last Admin: 10/14/24 21:18 Dose: 1 mg Risperidone (Risperidone 1 Mg Tablet) 1 mg PO BID PRN PRN Reason: Psychosis Last Admin: 10/14/24 21:19 Dose: 1 mg Risperidone (Risperidone 1 Mg Tablet) 1 mg PO DAILY@1230 [facility] Last Admin: 10/15/24 11:26 Dose: 1 mg Allergies Allergies Allergy/AdvReac Type Severity Reaction Status Date / Time No Known Allergies Allergy Verified 09/10/24 13:00 Assessment & Plan Assessment & Plan (1) Major neurocognitive disorder due to Alzheimer's disease: Status: Acute Code(s): G30.9 - Alzheimer's disease, unspecified; F02.80 - Dementia in other diseases classified elsewhere, unspecified severity, without behavioral disturbance, psychotic disturbance, mood disturbance, and anxiety (2) Lethargy: Status: Acute Code(s): R53.83 - Other fatigue Plan Ms. Wilder is a 78 year-old woman with advanced dementia, appears of AD type. She was admitted initially to medicine for treatment of UTI after being found wondering at 2am. She is not delirious. Her presentation is consistent with advanced dementia. She is not oriented to place, situation, month or date. Language deficits along with inability to retain any information to recognize herself in the mirrow or other objects. She has been on aricept but had diarrhea and she is also underweight. Had discussed with guardian while she was on the medical floor risperidone, added low dose clonazepam. PLAN 1. Risperdal was increased that to 1 mg p.o. t.i.d. to target agitation and psychosis so far it has been effective. 2. Continue with other medications. 3. Start working on discharge planning. 4. Risperdal was discontinued and the beginning of October so we restarted the on a slow titration up to 1 mg p.o. q.h.s. and 1 mg p.o. at noon on October 14. PRNs increased up to 1 mg p.o. b.i.d. on October 14. Reason for continued inpatient stay Substantial Risk for: inability to function, rapid decompensation and med/psych decompensation Time Spent With Patient Time: Total time managing care of this patient today __20__ minutes.
[2024-10-15] MEDS: Atorvastatin Calcium 10 MG TABLET PO (20:24)
[2024-10-15 20:31] VITALS: BP 140/63; PULSE 75; RESP 16; TEMP 36.6; O2SAT 95
[2024-10-16 07:55] VITALS: BP 148/67; PULSE 72; RESP 16; TEMP 36.8; O2SAT 95
[2024-10-16] MEDS: Famotidine 20 MG TABLET PO (08:17)
[2024-10-16] MEDS: Aspirin 81 MG TAB.CHEW PO (08:17)
[2024-10-16] MEDS: Memantine HCl 5 MG TABLET PO ×2 (08:17→19:42)
[2024-10-16] MEDS: risperiDONE 1 MG TABLET PO ×2 (12:34→19:41)
--- NOTE | 2024-10-16 15:30 | P.PNPSI_ITS ---
Subjective Subjective Date of Service: 10/16/24 Reason For Visit: Dementia Subjective Notes: Conditional Voluntary Interim History: The nursing staff reported the patient had been pleasantly confused, resistant with care as usual. On interview the patient denies new symptoms waiting for placement. Mental Status Exam Mental Status Exam Patient Appearance: Appropriate Patient Orientation: Person and Situation Level of Consciousness: Awake Patient Behavior: Guarded and Passive Mood Description: Withdrawn Affect Description: Constricted Patient Cognition Impaired: Yes Ability to Follow Directions: Good Speech Pattern: Clear Hallucinations: None Delusions: Ideas of Reference Thought Process: Distracted and Slowed Thinking Thought Content: positive for [place] and positive for Poverty of Content Judgement: Fair Diagnostics Vital Signs (24Hr): Vital Signs - 24 hr 10/15/24 20:31 10/16/24 07:55 Temperature 97.8 F 98.2 F Pulse Rate 75 72 Respiratory Rate 16 16 Blood Pressure 140/63 H 148/67 H Pulse Oximetry 95 95 Oxygen Delivery Method Room Air Room Air BMI result Body Mass Index 14.9 Labs 10/06/24 13:14 10/07/24 08:43 Labs: Laboratory Results - last 48 hr 10/15/24 12:15 Urine Color Yellow Urine Appearance Turbid Urine pH 6.0 Ur Specific [place] 1.010 Urine Protein Trace Urine Glucose (UA) Negative Urine Ketones Negative Urine Blood Small (1+) H Urine Nitrite Positive H Ur Leukocyte Esterase Large (3+) H Urine RBC 0-2 Urine WBC >50 H Urine WBC Clumps Present Ur Squamous Epith Cells 3-5 Urine Bacteria 4+ Hyaline Casts 3-5 Medications Medications Current Medications Acetaminophen (Acetaminophen 325 Mg Tablet) 650 mg PO Q6H PRN PRN Reason: Headache/Pain Mild Scale (1-3) Last Admin: 09/16/24 16:25 Dose: 650 mg Al Hydroxide/Mg Hydroxide (Magnesium Hydrox/Alum Hydrox 30 Ml Oral.Susp) 30 ml PO Q6H PRN PRN Reason: Heartburn/Nausea Aspirin (Aspirin 81 Mg Tab.Chew) 81 mg PO DAILY [facility] Last Admin: 10/16/24 08:17 Dose: 81 mg Atorvastatin Calcium (Atorvastatin Calcium 10 Mg Tablet) 10 mg PO BEDTIME [facility] Last Admin: 10/15/24 20:24 Dose: 10 mg Famotidine (Famotidine 20 Mg Tablet) 20 mg PO DAILY [facility] Last Admin: 10/16/24 08:17 Dose: 20 mg Magnesium Hydroxide (Milk Of Magnesia 30 Ml Oral.Susp) 30 ml PO DAILY PRN PRN Reason: Constipation Memantine (Memantine Hcl 5 Mg Tablet) 5 mg PO BID [facility] Last Admin: 10/16/24 08:17 Dose: 5 mg Risperidone (Risperidone 1 Mg Tablet) 1 mg PO BEDTIME [facility] Last Admin: 10/15/24 20:24 Dose: 1 mg Risperidone (Risperidone 1 Mg Tablet) 1 mg PO BID PRN PRN Reason: Psychosis Last Admin: 10/14/24 21:19 Dose: 1 mg Risperidone (Risperidone 1 Mg Tablet) 1 mg PO DAILY@1230 [facility] Last Admin: 10/16/24 12:34 Dose: 1 mg Allergies Allergies Allergy/AdvReac Type Severity Reaction Status Date / Time No Known Allergies Allergy Verified 09/10/24 13:00 Assessment & Plan Assessment & Plan (1) Major neurocognitive disorder due to Alzheimer's disease: Status: Acute Code(s): G30.9 - Alzheimer's disease, unspecified; F02.80 - Dementia in other diseases classified elsewhere, unspecified severity, without behavioral disturbance, psychotic disturbance, mood disturbance, and anxiety (2) Lethargy: Status: Acute Code(s): R53.83 - Other fatigue Plan Ms. Wilder is a 78 year-old woman with advanced dementia, appears of AD type. She was admitted initially to medicine for treatment of UTI after being found wondering at 2am. She is not delirious. Her presentation is consistent with advanced dementia. She is not oriented to place, situation, month or date. Language deficits along with inability to retain any information to recognize herself in the mirrow or other objects. She has been on aricept but had diarrhea and she is also underweight. Had discussed with guardian while she was on the medical floor risperidone, added low dose clonazepam. PLAN 1. Risperdal was increased that to 1 mg p.o. t.i.d. to target agitation and psychosis so far it has been effective. 2. Continue with other medications. 3. Start working on discharge planning. 4. Risperdal was discontinued and the beginning of October so we restarted the on a slow titration up to 1 mg p.o. q.h.s. and 1 mg p.o. at noon on October 14. PRNs increased up to 1 mg p.o. b.i.d. on October 14. Reason for continued inpatient stay Substantial Risk for: inability to function, rapid decompensation and med/psych decompensation Time Spent With Patient Time: Total time managing care of this patient today __20__ minutes.
--- NOTE | 2024-10-16 16:35 | PM.EVENT ---
Event Note Date of Service: 10/16/24 Event Note: Patient is a 79-year-old female admitted to [facility] with hospitalist consult for antibiotic recommendations for UTI. Patient with previous UTI on 09/23 which culture grew E coli and Enterococcus faecalis. Will empirically start patient on cefuroxime 500 mg b.i.d. times 10 days. Will follow urine cultures and adjust accordingly. Time Spent With Patient Time: Total time managing care of this patient today ____ minutes.
[2024-10-16] MEDS: cefuroxime axetiL 500 MG TABLET PO (17:33)
[2024-10-16] MEDS: Atorvastatin Calcium 10 MG TABLET PO (19:42)
[2024-10-16 19:56] VITALS: BP 142/65; PULSE 72; RESP 16; TEMP 36; O2SAT 95
[2024-10-17 08:00] VITALS: BP 134/64; PULSE 58; RESP 16; TEMP 36.1; O2SAT 97
[2024-10-17] MEDS: Memantine HCl 5 MG TABLET PO (08:35)
[2024-10-17] MEDS: Aspirin 81 MG TAB.CHEW PO (08:35)
[2024-10-17] MEDS: Famotidine 20 MG TABLET PO (08:35)
[2024-10-17] MEDS: cefuroxime axetiL 500 MG TABLET PO (08:35)
[2024-10-17] MEDS: risperiDONE 1 MG TABLET PO (12:22)
--- NOTE | 2024-10-17 15:41 | HO.PSYCHPN ---
Subjective Subjective Date of Service: 10/17/24 Reason For Visit: Dementia Interim History: The nursing staff reported that she had been confused, redirectable, no change of her behvior. On interview, she is pleasantly confused, with apraxia, compliant with medications. Mental Status Exam Mental Status Exam Patient Appearance: Appropriate Patient Orientation: Person and Situation Level of Consciousness: Awake and Appropriate Patient Behavior: Guarded and Passive Mood Description: Withdrawn Affect Description: Constricted Patient Cognition Impaired: Yes Ability to Follow Directions: Good Speech Pattern: Clear Hallucinations: None Delusions: Not Present Thought Process: Distracted and Slowed Thinking Thought Content: positive for [place] and positive for Poverty of Content Judgement: Fair Diagnostics Vital Signs (24Hr): Vital Signs - 24 hr 10/16/24 19:56 10/17/24 08:00 Temperature 96.8 F 97.0 F Pulse Rate 72 58 Respiratory Rate 16 16 Blood Pressure 142/65 H 134/64 Pulse Oximetry 95 97 Oxygen Delivery Method Room Air Room Air BMI result Body Mass Index 14.9 Labs 10/06/24 13:14 10/07/24 08:43 Medications Medications Current Medications Acetaminophen (Acetaminophen 325 Mg Tablet) 650 mg PO Q6H PRN PRN Reason: Headache/Pain Mild Scale (1-3) Last Admin: 09/16/24 16:25 Dose: 650 mg Al Hydroxide/Mg Hydroxide (Magnesium Hydrox/Alum Hydrox 30 Ml Oral.Susp) 30 ml PO Q6H PRN PRN Reason: Heartburn/Nausea Aspirin (Aspirin 81 Mg Tab.Chew) 81 mg PO DAILY [facility] Last Admin: 10/17/24 08:35 Dose: 81 mg Atorvastatin Calcium (Atorvastatin Calcium 10 Mg Tablet) 10 mg PO BEDTIME [facility] Last Admin: 10/16/24 19:42 Dose: 10 mg Cefuroxime Axetil (Cefuroxime Axetil 500 Mg Tablet) 500 mg PO Q12H [facility] Last Admin: 10/17/24 08:35 Dose: 500 mg Famotidine (Famotidine 20 Mg Tablet) 20 mg PO DAILY [facility] Last Admin: 10/17/24 08:35 Dose: 20 mg Magnesium Hydroxide (Milk Of Magnesia 30 Ml Oral.Susp) 30 ml PO DAILY PRN PRN Reason: Constipation Memantine (Memantine Hcl 5 Mg Tablet) 5 mg PO BID [facility] Last Admin: 10/17/24 08:35 Dose: 5 mg Risperidone (Risperidone 1 Mg Tablet) 1 mg PO BEDTIME [facility] Last Admin: 10/16/24 19:41 Dose: 1 mg Risperidone (Risperidone 1 Mg Tablet) 1 mg PO BID PRN PRN Reason: Psychosis Last Admin: 10/14/24 21:19 Dose: 1 mg Risperidone (Risperidone 1 Mg Tablet) 1 mg PO DAILY@1230 [facility] Last Admin: 10/17/24 12:22 Dose: 1 mg Allergies Allergies Allergy/AdvReac Type Severity Reaction Status Date / Time No Known Allergies Allergy Verified 09/10/24 13:00 Assessment & Plan Assessment & Plan (1) Major neurocognitive disorder due to Alzheimer's disease: Status: Acute Code(s): G30.9 - Alzheimer's disease, unspecified; F02.80 - Dementia in other diseases classified elsewhere, unspecified severity, without behavioral disturbance, psychotic disturbance, mood disturbance, and anxiety (2) Lethargy: Status: Acute Code(s): R53.83 - Other fatigue Plan Ms. Wilder is a 78 year-old woman with advanced dementia, appears of AD type. She was admitted initially to medicine for treatment of UTI after being found wondering at 2am. She is not delirious. Her presentation is consistent with advanced dementia. She is not oriented to place, situation, month or date. Language deficits along with inability to retain any information to recognize herself in the mirrow or other objects. She has been on aricept but had diarrhea and she is also underweight. Had discussed with guardian while she was on the medical floor risperidone, added low dose clonazepam. PLAN 1. Risperdal was increased that to 1 mg p.o. t.i.d. to target agitation and psychosis so far it has been effective. 2. Continue with other medications. 3. Start working on discharge planning. 4. Risperdal was discontinued and the beginning of October so we restarted the on a slow titration up to 1 mg p.o. q.h.s. and 1 mg p.o. at noon on October 14. PRNs increased up to 1 mg p.o. b.i.d. on October 14. Reason for continued inpatient stay Substantial Risk for: inability to function, rapid decompensation and med/psych decompensation Time Spent With Patient Time: Total time managing care of this patient today _20___ minutes.
[2024-10-17 20:00] VITALS: BP 142/60; PULSE 77; RESP 16; TEMP 36.4
[2024-10-18 09:08] VITALS: BP 109/62; PULSE 72; RESP 12; TEMP 36.3; O2SAT 95
[2024-10-18] MEDS: Memantine HCl 5 MG TABLET PO ×2 (09:31→19:53)
[2024-10-18] MEDS: Aspirin 81 MG TAB.CHEW PO (09:31)
[2024-10-18] MEDS: levoFLOXacin 500 MG TABLET PO (10:47)
[2024-10-18] MEDS: risperiDONE 1 MG TABLET PO ×2 (12:11→19:53)
--- NOTE | 2024-10-18 13:30 | MHC.CLN ---
F/U DIET=REGULAR. ENSURE TID PROVIDES ADDITIONAL 1050 KCALS, 60 G PROTEIN. 1:1 SUPERVISION WITH MEALS. MOST RECENT INTAKE WITH BREAKFAST USUALLY 0, AND MOST LUNCH AND DINNER MEALS 50-100%. ENCOURAGE INTAKE OF MEALS, SUPPLEMENTS, SNACKS ABLE. RD TO FOLLOW WEEKLY.
--- NOTE | 2024-10-18 16:17 | HO.PSYCHPN ---
Subjective Subjective Date of Service: 10/18/24 Reason For Visit: Dementia Subjective Notes: Conditional Voluntary Healthcare Proxy: Yes Interim History: The nursing staff reported the patient had been compliant with treatment no changes in her mental status. On interview the patient remains pleasantly confused easily redirectable, waiting for placement. Mental Status Exam Mental Status Exam Patient Appearance: Appropriate Patient Orientation: Person and Situation Level of Consciousness: Awake and Appropriate Patient Behavior: Guarded and Passive Mood Description: Withdrawn Affect Description: Constricted Patient Cognition Impaired: Yes Ability to Follow Directions: Good Speech Pattern: Clear Hallucinations: None Delusions: Not Present Thought Process: Distracted and Slowed Thinking Thought Content: positive for [place] and positive for Poverty of Content Judgement: Fair Diagnostics Vital Signs (24Hr): Vital Signs - 24 hr 10/17/24 20:00 10/18/24 09:08 Temperature 97.6 F 97.4 F Pulse Rate 77 72 Respiratory Rate 16 12 Blood Pressure 142/60 H 109/62 Pulse Oximetry 95 Oxygen Delivery Method Room Air BMI result Body Mass Index 14.9 Labs 10/06/24 13:14 10/07/24 08:43 Medications Medications Current Medications Acetaminophen (Acetaminophen 325 Mg Tablet) 650 mg PO Q6H PRN PRN Reason: Headache/Pain Mild Scale (1-3) Last Admin: 09/16/24 16:25 Dose: 650 mg Al Hydroxide/Mg Hydroxide (Magnesium Hydrox/Alum Hydrox 30 Ml Oral.Susp) 30 ml PO Q6H PRN PRN Reason: Heartburn/Nausea Aspirin (Aspirin 81 Mg Tab.Chew) 81 mg PO DAILY [facility] Last Admin: 10/18/24 09:31 Dose: 81 mg Atorvastatin Calcium (Atorvastatin Calcium 10 Mg Tablet) 10 mg PO BEDTIME [facility] Last Admin: 10/17/24 20:55 Dose: Not Given Famotidine (Famotidine 20 Mg Tablet) 20 mg PO DAILY [facility] Last Admin: 10/18/24 10:31 Dose: Not Given Levofloxacin (Levofloxacin 250 Mg Tablet) 250 mg PO Q24H [facility] Stop: 10/24/24 08:59 Magnesium Hydroxide (Milk Of Magnesia 30 Ml Oral.Susp) 30 ml PO DAILY PRN PRN Reason: Constipation Memantine (Memantine Hcl 5 Mg Tablet) 5 mg PO BID [facility] Last Admin: 10/18/24 09:31 Dose: 5 mg Risperidone (Risperidone 1 Mg Tablet) 1 mg PO BEDTIME [facility] Last Admin: 10/17/24 20:55 Dose: Not Given Risperidone (Risperidone 1 Mg Tablet) 1 mg PO BID PRN PRN Reason: Psychosis Last Admin: 10/14/24 21:19 Dose: 1 mg Risperidone (Risperidone 1 Mg Tablet) 1 mg PO DAILY@1230 [facility] Last Admin: 10/18/24 12:11 Dose: 1 mg Allergies Allergies Allergy/AdvReac Type Severity Reaction Status Date / Time No Known Allergies Allergy Verified 09/10/24 13:00 Assessment & Plan Assessment & Plan (1) Major neurocognitive disorder due to Alzheimer's disease: Status: Acute Code(s): G30.9 - Alzheimer's disease, unspecified; F02.80 - Dementia in other diseases classified elsewhere, unspecified severity, without behavioral disturbance, psychotic disturbance, mood disturbance, and anxiety (2) Lethargy: Status: Acute Code(s): R53.83 - Other fatigue Plan Ms. Wilder is a 78 year-old woman with advanced dementia, appears of AD type. She was admitted initially to medicine for treatment of UTI after being found wondering at 2am. She is not delirious. Her presentation is consistent with advanced dementia. She is not oriented to place, situation, month or date. Language deficits along with inability to retain any information to recognize herself in the mirrow or other objects. She has been on aricept but had diarrhea and she is also underweight. Had discussed with guardian while she was on the medical floor risperidone, added low dose clonazepam. PLAN 1. Risperdal was increased that to 1 mg p.o. t.i.d. to target agitation and psychosis so far it has been effective. 2. Continue with other medications. 3. Start working on discharge planning. 4. Risperdal was discontinued and the beginning of October so we restarted the on a slow titration up to 1 mg p.o. q.h.s. and 1 mg p.o. at noon on October 14. PRNs increased up to 1 mg p.o. b.i.d. on October 14. Reason for continued inpatient stay Substantial Risk for: inability to function, rapid decompensation and med/psych decompensation Time Spent With Patient Time: Total time managing care of this patient today _20___ minutes.
[2024-10-18] MEDS: Atorvastatin Calcium 10 MG TABLET PO (19:53)
[2024-10-18 20:00] VITALS: BP 134/62; PULSE 81; RESP 15; TEMP 36.4; O2SAT 95
--- NOTE | 2024-10-19 06:57 | HO.PSYCHPN ---
Subjective Subjective Date of Service: 10/19/24 Reason For Visit: Dementia Subjective Notes: Conditional Voluntary Healthcare Proxy: Yes Interim History: The nursing staff reported the patient had been compliant with treatment, very demented but easily redirectable. On interview the patient is perseverative with severe apraxia. Mental Status Exam Mental Status Exam Patient Appearance: Appropriate Patient Orientation: Person Level of Consciousness: Awake Patient Behavior: Guarded and Passive Mood Description: Withdrawn Affect Description: Constricted Patient Cognition Impaired: Yes Ability to Follow Directions: Good Speech Pattern: Clear Hallucinations: None Delusions: Ideas of Reference Thought Process: Distracted and Slowed Thinking Thought Content: positive for Poverty of Content and positive for Thought Blocking Judgement: Poor Diagnostics Vital Signs (24Hr): Vital Signs - 24 hr 10/18/24 09:08 10/18/24 20:00 Temperature 97.4 F 97.6 F Pulse Rate 72 81 Respiratory Rate 12 15 Blood Pressure 109/62 134/62 Pulse Oximetry 95 95 Oxygen Delivery Method Room Air Room Air BMI result Body Mass Index 14.9 Labs 10/06/24 13:14 10/07/24 08:43 Medications Medications Current Medications Acetaminophen (Acetaminophen 325 Mg Tablet) 650 mg PO Q6H PRN PRN Reason: Headache/Pain Mild Scale (1-3) Last Admin: 09/16/24 16:25 Dose: 650 mg Al Hydroxide/Mg Hydroxide (Magnesium Hydrox/Alum Hydrox 30 Ml Oral.Susp) 30 ml PO Q6H PRN PRN Reason: Heartburn/Nausea Aspirin (Aspirin 81 Mg Tab.Chew) 81 mg PO DAILY [facility] Last Admin: 10/18/24 09:31 Dose: 81 mg Atorvastatin Calcium (Atorvastatin Calcium 10 Mg Tablet) 10 mg PO BEDTIME [facility] Last Admin: 10/18/24 19:53 Dose: 10 mg Famotidine (Famotidine 20 Mg Tablet) 20 mg PO DAILY [facility] Last Admin: 10/18/24 10:31 Dose: Not Given Levofloxacin (Levofloxacin 250 Mg Tablet) 250 mg PO Q24H [facility] Stop: 10/24/24 08:59 Magnesium Hydroxide (Milk Of Magnesia 30 Ml Oral.Susp) 30 ml PO DAILY PRN PRN Reason: Constipation Memantine (Memantine Hcl 5 Mg Tablet) 5 mg PO BID [facility] Last Admin: 10/18/24 19:53 Dose: 5 mg Risperidone (Risperidone 1 Mg Tablet) 1 mg PO BEDTIME [facility] Last Admin: 10/18/24 19:53 Dose: 1 mg Risperidone (Risperidone 1 Mg Tablet) 1 mg PO BID PRN PRN Reason: Psychosis Last Admin: 10/14/24 21:19 Dose: 1 mg Risperidone (Risperidone 1 Mg Tablet) 1 mg PO DAILY@1230 [facility] Last Admin: 10/18/24 12:11 Dose: 1 mg Allergies Allergies Allergy/AdvReac Type Severity Reaction Status Date / Time No Known Allergies Allergy Verified 09/10/24 13:00 Assessment & Plan Assessment & Plan (1) Major neurocognitive disorder due to Alzheimer's disease: Status: Acute Code(s): G30.9 - Alzheimer's disease, unspecified; F02.80 - Dementia in other diseases classified elsewhere, unspecified severity, without behavioral disturbance, psychotic disturbance, mood disturbance, and anxiety (2) Lethargy: Status: Acute Code(s): R53.83 - Other fatigue Plan Ms. Wilder is a 78 year-old woman with advanced dementia, appears of AD type. She was admitted initially to medicine for treatment of UTI after being found wondering at 2am. She is not delirious. Her presentation is consistent with advanced dementia. She is not oriented to place, situation, month or date. Language deficits along with inability to retain any information to recognize herself in the mirrow or other objects. She has been on aricept but had diarrhea and she is also underweight. Had discussed with guardian while she was on the medical floor risperidone, added low dose clonazepam. PLAN 1. Risperdal was increased that to 1 mg p.o. t.i.d. to target agitation and psychosis so far it has been effective. 2. Continue with other medications. 3. Start working on discharge planning. 4. Risperdal was discontinued and the beginning of October so we restarted the on a slow titration up to 1 mg p.o. q.h.s. and 1 mg p.o. at noon on October 14. PRNs increased up to 1 mg p.o. b.i.d. on October 14. Reason for continued inpatient stay Substantial Risk for: inability to function, rapid decompensation and med/psych decompensation Time Spent With Patient Time: Total time managing care of this patient today __20__ minutes.
[2024-10-19 08:00] VITALS: BP 118/50; PULSE 56; RESP 16; TEMP 37.1; O2SAT 95
[2024-10-19] MEDS: Memantine HCl 5 MG TABLET PO ×2 (08:43→20:02)
[2024-10-19] MEDS: Aspirin 81 MG TAB.CHEW PO (08:43)
[2024-10-19] MEDS: levoFLOXacin 250 MG TABLET PO (08:43)
[2024-10-19] MEDS: Famotidine 20 MG TABLET PO (08:43)
[2024-10-19] MEDS: risperiDONE 1 MG TABLET PO ×2 (12:12→20:02)
[2024-10-19 20:00] VITALS: BP 104/52; PULSE 68; RESP 16; TEMP 36.4; O2SAT 98
[2024-10-19] MEDS: Atorvastatin Calcium 10 MG TABLET PO (20:02)
--- NOTE | 2024-10-20 06:57 | HO.PSYCHPN ---
Subjective Subjective Date of Service: 10/20/24 Reason For Visit: Dementia Subjective Notes: Conditional Voluntary Interim History: The nursing staff reported the patient had been pleasantly confused still treated with UTI with Levaquin. On interview the patient remains grossly confused at baseline she always address herself on 3rd person. Mental Status Exam Mental Status Exam Patient Appearance: Appropriate Patient Orientation: Person Level of Consciousness: Awake Patient Behavior: Guarded and Passive Mood Description: Withdrawn Affect Description: Constricted Patient Cognition Impaired: Yes Ability to Follow Directions: Good Speech Pattern: Clear Hallucinations: None Delusions: Not Present Thought Process: Distracted and Slowed Thinking Thought Content: positive for [place] and positive for Poverty of Content Judgement: Fair Diagnostics Vital Signs (24Hr): Vital Signs - 24 hr 10/19/24 08:00 10/19/24 20:00 Temperature 98.7 F 97.6 F Pulse Rate 56 68 Respiratory Rate 16 16 Blood Pressure 118/50 L 104/52 L Pulse Oximetry 95 98 Oxygen Delivery Method Room Air Room Air BMI result Body Mass Index 14.9 Labs 10/06/24 13:14 10/07/24 08:43 Medications Medications Current Medications Acetaminophen (Acetaminophen 325 Mg Tablet) 650 mg PO Q6H PRN PRN Reason: Headache/Pain Mild Scale (1-3) Last Admin: 09/16/24 16:25 Dose: 650 mg Al Hydroxide/Mg Hydroxide (Magnesium Hydrox/Alum Hydrox 30 Ml Oral.Susp) 30 ml PO Q6H PRN PRN Reason: Heartburn/Nausea Aspirin (Aspirin 81 Mg Tab.Chew) 81 mg PO DAILY [facility] Last Admin: 10/19/24 08:43 Dose: 81 mg Atorvastatin Calcium (Atorvastatin Calcium 10 Mg Tablet) 10 mg PO BEDTIME [facility] Last Admin: 10/19/24 20:02 Dose: 10 mg Famotidine (Famotidine 20 Mg Tablet) 20 mg PO DAILY [facility] Last Admin: 10/19/24 08:43 Dose: 20 mg Levofloxacin (Levofloxacin 250 Mg Tablet) 250 mg PO Q24H [facility] Stop: 10/24/24 08:59 Last Admin: 10/19/24 08:43 Dose: 250 mg Magnesium Hydroxide (Milk Of Magnesia 30 Ml Oral.Susp) 30 ml PO DAILY PRN PRN Reason: Constipation Memantine (Memantine Hcl 5 Mg Tablet) 5 mg PO BID [facility] Last Admin: 10/19/24 20:02 Dose: 5 mg Risperidone (Risperidone 1 Mg Tablet) 1 mg PO BEDTIME [facility] Last Admin: 10/19/24 20:02 Dose: 1 mg Risperidone (Risperidone 1 Mg Tablet) 1 mg PO BID PRN PRN Reason: Psychosis Last Admin: 10/14/24 21:19 Dose: 1 mg Risperidone (Risperidone 1 Mg Tablet) 1 mg PO DAILY@1230 [facility] Last Admin: 10/19/24 12:12 Dose: 1 mg Allergies Allergies Allergy/AdvReac Type Severity Reaction Status Date / Time No Known Allergies Allergy Verified 09/10/24 13:00 Assessment & Plan Assessment & Plan (1) Major neurocognitive disorder due to Alzheimer's disease: Status: Acute Code(s): G30.9 - Alzheimer's disease, unspecified; F02.80 - Dementia in other diseases classified elsewhere, unspecified severity, without behavioral disturbance, psychotic disturbance, mood disturbance, and anxiety (2) Lethargy: Status: Acute Code(s): R53.83 - Other fatigue Plan Ms. Wilder is a 78 year-old woman with advanced dementia, appears of AD type. She was admitted initially to medicine for treatment of UTI after being found wondering at 2am. She is not delirious. Her presentation is consistent with advanced dementia. She is not oriented to place, situation, month or date. Language deficits along with inability to retain any information to recognize herself in the mirrow or other objects. She has been on aricept but had diarrhea and she is also underweight. Had discussed with guardian while she was on the medical floor risperidone, added low dose clonazepam. PLAN 1. Risperdal was increased that to 1 mg p.o. t.i.d. to target agitation and psychosis so far it has been effective. 2. Continue with other medications. 3. Start working on discharge planning. 4. Risperdal was discontinued and the beginning of October so we restarted the on a slow titration up to 1 mg p.o. q.h.s. and 1 mg p.o. at noon on October 14. PRNs increased up to 1 mg p.o. b.i.d. on October 14. Reason for continued inpatient stay Substantial Risk for: inability to function, rapid decompensation and med/psych decompensation Time Spent With Patient Time: Total time managing care of this patient today _20___ minutes.
[2024-10-20 08:00] VITALS: BP 141/62; PULSE 71; RESP 16; TEMP 36.6; O2SAT 95
--- NOTE | 2024-10-20 10:13 | PC.NURSE ---
Patient took some am medications in chocolate pudding and spitted out some. Dr Chidi crowe.
--- NOTE | 2024-10-20 12:12 | PC.NURSE ---
Imani declined to take [address] Roland notified.
[2024-10-20] MEDS: Memantine HCl 5 MG TABLET PO (19:21)
[2024-10-20] MEDS: Atorvastatin Calcium 10 MG TABLET PO (19:21)
[2024-10-20] MEDS: risperiDONE 1 MG TABLET PO (19:21)
[2024-10-20 20:41] VITALS: BP 116/74; PULSE 83; RESP 17; TEMP 36.2; O2SAT 93
[2024-10-21] MEDS: Memantine HCl 5 MG TABLET PO ×2 (08:51→19:43)
[2024-10-21] MEDS: levoFLOXacin 250 MG TABLET PO (08:51)
[2024-10-21] MEDS: Famotidine 20 MG TABLET PO (08:51)
[2024-10-21] MEDS: Aspirin 81 MG TAB.CHEW PO (08:52)
[2024-10-21] MEDS: risperiDONE 1 MG TABLET PO ×2 (11:59→19:43)
--- NOTE | 2024-10-21 14:16 | HO.PSYCHPN ---
Subjective Subjective Date of Service: 10/21/24 Reason For Visit: Dementia Subjective Notes: Conditional Voluntary Interim History: The nursing staff reported remains confused at times agitated slept hours. On interview the patient is grossly confused with very advanced dementia. Mental Status Exam Mental Status Exam Patient Appearance: Appropriate Patient Orientation: Person and Situation Level of Consciousness: Awake and Appropriate Patient Behavior: Guarded and Passive Mood Description: Withdrawn Affect Description: Constricted Patient Cognition Impaired: Yes Ability to Follow Directions: Good Speech Pattern: Clear Hallucinations: None Delusions: Paranoid Ideation and Ideas of Reference Thought Process: Distracted and Slowed Thinking Thought Content: positive for [place] and positive for Poverty of Content Judgement: Poor Diagnostics Vital Signs (24Hr): Vital Signs - 24 hr 10/20/24 20:41 Temperature 97.2 F Pulse Rate 83 Respiratory Rate 17 Blood Pressure 116/74 Pulse Oximetry 93 Oxygen Delivery Method Room Air BMI result Body Mass Index 14.9 Labs 10/06/24 13:14 10/07/24 08:43 Medications Medications Current Medications Acetaminophen (Acetaminophen 325 Mg Tablet) 650 mg PO Q6H PRN PRN Reason: Headache/Pain Mild Scale (1-3) Last Admin: 09/16/24 16:25 Dose: 650 mg Al Hydroxide/Mg Hydroxide (Magnesium Hydrox/Alum Hydrox 30 Ml Oral.Susp) 30 ml PO Q6H PRN PRN Reason: Heartburn/Nausea Aspirin (Aspirin 81 Mg Tab.Chew) 81 mg PO DAILY [facility] Last Admin: 10/21/24 08:52 Dose: 81 mg Atorvastatin Calcium (Atorvastatin Calcium 10 Mg Tablet) 10 mg PO BEDTIME [facility] Last Admin: 10/20/24 19:21 Dose: 10 mg Famotidine (Famotidine 20 Mg Tablet) 20 mg PO DAILY [facility] Last Admin: 10/21/24 08:51 Dose: 20 mg Levofloxacin (Levofloxacin 250 Mg Tablet) 250 mg PO Q24H [facility] Stop: 10/24/24 08:59 Last Admin: 10/21/24 08:51 Dose: 250 mg Magnesium Hydroxide (Milk Of Magnesia 30 Ml Oral.Susp) 30 ml PO DAILY PRN PRN Reason: Constipation Memantine (Memantine Hcl 5 Mg Tablet) 5 mg PO BID [facility] Last Admin: 10/21/24 08:51 Dose: 5 mg Risperidone (Risperidone 1 Mg Tablet) 1 mg PO BEDTIME [facility] Last Admin: 10/20/24 19:21 Dose: 1 mg Risperidone (Risperidone 1 Mg Tablet) 1 mg PO BID PRN PRN Reason: Psychosis Last Admin: 10/14/24 21:19 Dose: 1 mg Risperidone (Risperidone 1 Mg Tablet) 1 mg PO DAILY@1230 [facility] Last Admin: 10/21/24 11:59 Dose: 1 mg Allergies Allergies Allergy/AdvReac Type Severity Reaction Status Date / Time No Known Allergies Allergy Verified 09/10/24 13:00 Assessment & Plan Assessment & Plan (1) Major neurocognitive disorder due to Alzheimer's disease: Status: Acute Code(s): G30.9 - Alzheimer's disease, unspecified; F02.80 - Dementia in other diseases classified elsewhere, unspecified severity, without behavioral disturbance, psychotic disturbance, mood disturbance, and anxiety (2) Lethargy: Status: Acute Code(s): R53.83 - Other fatigue Plan Ms. Wilder is a 78 year-old woman with advanced dementia, appears of AD type. She was admitted initially to medicine for treatment of UTI after being found wondering at 2am. She is not delirious. Her presentation is consistent with advanced dementia. She is not oriented to place, situation, month or date. Language deficits along with inability to retain any information to recognize herself in the mirrow or other objects. She has been on aricept but had diarrhea and she is also underweight. Had discussed with guardian while she was on the medical floor risperidone, added low dose clonazepam. PLAN 1. Risperdal was increased that to 1 mg p.o. t.i.d. to target agitation and psychosis so far it has been effective. 2. Continue with other medications. 3. Start working on discharge planning. 4. Risperdal was discontinued and the beginning of October so we restarted the on a slow titration up to 1 mg p.o. q.h.s. and 1 mg p.o. at noon on October 14. PRNs increased up to 1 mg p.o. b.i.d. on October 14. Reason for continued inpatient stay Substantial Risk for: inability to function, rapid decompensation and med/psych decompensation Time Spent With Patient Time: Total time managing care of this patient today __20__ minutes.
[2024-10-21] MEDS: Atorvastatin Calcium 10 MG TABLET PO (19:43)
[2024-10-21 20:00] VITALS: BP 135/88; PULSE 76; RESP 16; TEMP 36.9; O2SAT 97
[2024-10-22 08:00] VITALS: BP 129/60; PULSE 71; RESP 18; TEMP 36.4; O2SAT 95
[2024-10-22] MEDS: Memantine HCl 5 MG TABLET PO ×2 (08:32→21:03)
[2024-10-22] MEDS: levoFLOXacin 250 MG TABLET PO (08:32)
[2024-10-22] MEDS: Aspirin 81 MG TAB.CHEW PO (08:32)
[2024-10-22] MEDS: Famotidine 20 MG TABLET PO (08:32)
[2024-10-22] MEDS: risperiDONE 1 MG TABLET PO ×2 (13:09→21:03)
--- NOTE | 2024-10-22 16:36 | P.PNPSI_ITS ---
Subjective Subjective Date of Service: 10/22/24 Reason For Visit: Dementia Subjective Notes: Conditional Voluntary Healthcare Proxy: Yes Interim History: The nursing staff reported that she had been compliant with treatment, slept 6 hours. The oncology social work reported that a retirement facility will take her, waiting for confirmation. Mental Status Exam Mental Status Exam Patient Appearance: Appropriate Patient Orientation: Person and Situation Level of Consciousness: Awake and Appropriate Patient Behavior: Guarded and Passive Mood Description: Withdrawn Affect Description: Constricted Patient Cognition Impaired: Yes Ability to Follow Directions: Good Speech Pattern: Clear Hallucinations: None Delusions: Paranoid Ideation and Ideas of Reference Thought Process: Distracted and Slowed Thinking Thought Content: positive for [place] and positive for Poverty of Content Judgement: Poor Diagnostics Vital Signs (24Hr): Vital Signs - 24 hr 10/21/24 20:00 10/22/24 08:00 Temperature 98.5 F 97.5 F Pulse Rate 76 71 Respiratory Rate 16 18 Blood Pressure 135/88 129/60 Pulse Oximetry 97 95 Oxygen Delivery Method Room Air Room Air BMI result Body Mass Index 14.9 Labs 10/06/24 13:14 10/07/24 08:43 Medications Medications Current Medications Acetaminophen (Acetaminophen 325 Mg Tablet) 650 mg PO Q6H PRN PRN Reason: Headache/Pain Mild Scale (1-3) Last Admin: 09/16/24 16:25 Dose: 650 mg Al Hydroxide/Mg Hydroxide (Magnesium Hydrox/Alum Hydrox 30 Ml Oral.Susp) 30 ml PO Q6H PRN PRN Reason: Heartburn/Nausea Aspirin (Aspirin 81 Mg Tab.Chew) 81 mg PO DAILY [facility] Last Admin: 10/22/24 08:32 Dose: 81 mg Atorvastatin Calcium (Atorvastatin Calcium 10 Mg Tablet) 10 mg PO BEDTIME [facility] Last Admin: 10/21/24 19:43 Dose: 10 mg Famotidine (Famotidine 20 Mg Tablet) 20 mg PO DAILY [facility] Last Admin: 10/22/24 08:32 Dose: 20 mg Levofloxacin (Levofloxacin 250 Mg Tablet) 250 mg PO Q24H [facility] Stop: 10/24/24 08:59 Last Admin: 10/22/24 08:32 Dose: 250 mg Magnesium Hydroxide (Milk Of Magnesia 30 Ml Oral.Susp) 30 ml PO DAILY PRN PRN Reason: Constipation Memantine (Memantine Hcl 5 Mg Tablet) 5 mg PO BID [facility] Last Admin: 10/22/24 08:32 Dose: 5 mg Risperidone (Risperidone 1 Mg Tablet) 1 mg PO BEDTIME [facility] Last Admin: 10/21/24 19:43 Dose: 1 mg Risperidone (Risperidone 1 Mg Tablet) 1 mg PO BID PRN PRN Reason: Psychosis Last Admin: 10/14/24 21:19 Dose: 1 mg Risperidone (Risperidone 1 Mg Tablet) 1 mg PO DAILY@1230 [facility] Last Admin: 10/22/24 13:09 Dose: 1 mg Allergies Allergies Allergy/AdvReac Type Severity Reaction Status Date / Time No Known Allergies Allergy Verified 09/10/24 13:00 Assessment & Plan Assessment & Plan (1) Major neurocognitive disorder due to Alzheimer's disease: Status: Acute Code(s): G30.9 - Alzheimer's disease, unspecified; F02.80 - Dementia in other diseases classified elsewhere, unspecified severity, without behavioral disturbance, psychotic disturbance, mood disturbance, and anxiety (2) Lethargy: Status: Acute Code(s): R53.83 - Other fatigue Plan Ms. Wilder is a 78 year-old woman with advanced dementia, appears of AD type. She was admitted initially to medicine for treatment of UTI after being found wondering at 2am. She is not delirious. Her presentation is consistent with advanced dementia. She is not oriented to place, situation, month or date. Language deficits along with inability to retain any information to recognize herself in the mirrow or other objects. She has been on aricept but had diarrhea and she is also underweight. Had discussed with guardian while she was on the medical floor risperidone, added low dose clonazepam. PLAN 1. Risperdal was increased that to 1 mg p.o. t.i.d. to target agitation and psychosis so far it has been effective. 2. Continue with other medications. 3. Start working on discharge planning. 4. Risperdal was discontinued and the beginning of October so we restarted the on a slow titration up to 1 mg p.o. q.h.s. and 1 mg p.o. at noon on October 14. PRNs increased up to 1 mg p.o. b.i.d. on October 14. Reason for continued inpatient stay Substantial Risk for: inability to function, rapid decompensation and med/psych decompensation Time Spent With Patient Time: Total time managing care of this patient today __20__ minutes.
[2024-10-22 20:00] VITALS: BP 102/49; PULSE 68; RESP 20; TEMP 35.9; O2SAT 96
[2024-10-22] MEDS: Atorvastatin Calcium 10 MG TABLET PO (21:03)
[2024-10-23 08:00] VITALS: BP 144/60; PULSE 65; RESP 18; TEMP 36.3; O2SAT 99
[2024-10-23] MEDS: Memantine HCl 5 MG TABLET PO ×2 (10:50→20:13)
[2024-10-23] MEDS: Aspirin 81 MG TAB.CHEW PO (10:50)
[2024-10-23] MEDS: levoFLOXacin 250 MG TABLET PO (10:50)
[2024-10-23] MEDS: Famotidine 20 MG TABLET PO (10:50)
[2024-10-23] MEDS: risperiDONE 1 MG TABLET PO ×2 (13:18→20:12)
--- NOTE | 2024-10-23 13:48 | P.PNPSI_ITS ---
Subjective Subjective Date of Service: 10/23/24 Reason For Visit: Dementia Subjective Notes: Conditional Voluntary Healthcare Proxy: Yes Interim History: The nursing staff reported the patient had been disoriented, redirectable. On interview the patient remains grossly demented but redirectable waiting for placement. Mental Status Exam Mental Status Exam Patient Appearance: Appropriate Patient Orientation: Person and Situation Level of Consciousness: Awake Patient Behavior: Guarded and Passive Mood Description: Withdrawn Affect Description: Constricted Patient Cognition Impaired: Yes Ability to Follow Directions: Good Speech Pattern: Clear Hallucinations: None Delusions: Not Present Thought Process: Distracted and Slowed Thinking Thought Content: positive for [place] and positive for Poverty of Content Judgement: Fair Diagnostics Vital Signs (24Hr): Vital Signs - 24 hr 10/22/24 20:00 Temperature 96.6 F L Pulse Rate 68 Respiratory Rate 20 Blood Pressure 102/49 L Pulse Oximetry 96 Oxygen Delivery Method Room Air BMI result Body Mass Index 14.9 Labs 10/06/24 13:14 10/07/24 08:43 Medications Medications Current Medications Acetaminophen (Acetaminophen 325 Mg Tablet) 650 mg PO Q6H PRN PRN Reason: Headache/Pain Mild Scale (1-3) Last Admin: 09/16/24 16:25 Dose: 650 mg Al Hydroxide/Mg Hydroxide (Magnesium Hydrox/Alum Hydrox 30 Ml Oral.Susp) 30 ml PO Q6H PRN PRN Reason: Heartburn/Nausea Aspirin (Aspirin 81 Mg Tab.Chew) 81 mg PO DAILY [facility] Last Admin: 10/23/24 10:50 Dose: 81 mg Atorvastatin Calcium (Atorvastatin Calcium 10 Mg Tablet) 10 mg PO BEDTIME [facility] Last Admin: 10/22/24 21:03 Dose: 10 mg Famotidine (Famotidine 20 Mg Tablet) 20 mg PO DAILY [facility] Last Admin: 10/23/24 10:50 Dose: 20 mg Levofloxacin (Levofloxacin 250 Mg Tablet) 250 mg PO Q24H [facility] Stop: 10/24/24 08:59 Last Admin: 10/23/24 10:50 Dose: 250 mg Magnesium Hydroxide (Milk Of Magnesia 30 Ml Oral.Susp) 30 ml PO DAILY PRN PRN Reason: Constipation Memantine (Memantine Hcl 5 Mg Tablet) 5 mg PO BID [facility] Last Admin: 10/23/24 10:50 Dose: 5 mg Risperidone (Risperidone 1 Mg Tablet) 1 mg PO BEDTIME [facility] Last Admin: 10/22/24 21:03 Dose: 1 mg Risperidone (Risperidone 1 Mg Tablet) 1 mg PO BID PRN PRN Reason: Psychosis Last Admin: 10/14/24 21:19 Dose: 1 mg Risperidone (Risperidone 1 Mg Tablet) 1 mg PO DAILY@1230 [facility] Last Admin: 10/23/24 13:18 Dose: 1 mg Allergies Allergies Allergy/AdvReac Type Severity Reaction Status Date / Time No Known Allergies Allergy Verified 09/10/24 13:00 Assessment & Plan Assessment & Plan (1) Major neurocognitive disorder due to Alzheimer's disease: Status: Acute Code(s): G30.9 - Alzheimer's disease, unspecified; F02.80 - Dementia in other diseases classified elsewhere, unspecified severity, without behavioral disturbance, psychotic disturbance, mood disturbance, and anxiety (2) Lethargy: Status: Acute Code(s): R53.83 - Other fatigue Plan Ms. Wilder is a 78 year-old woman with advanced dementia, appears of AD type. She was admitted initially to medicine for treatment of UTI after being found wondering at 2am. She is not delirious. Her presentation is consistent with advanced dementia. She is not oriented to place, situation, month or date. Language deficits along with inability to retain any information to recognize herself in the mirrow or other objects. She has been on aricept but had diarrhea and she is also underweight. Had discussed with guardian while she was on the medical floor risperidone, added low dose clonazepam. PLAN 1. Risperdal was increased that to 1 mg p.o. t.i.d. to target agitation and psychosis so far it has been effective. 2. Continue with other medications. 3. Start working on discharge planning. 4. Risperdal was discontinued and the beginning of October so we restarted the on a slow titration up to 1 mg p.o. q.h.s. and 1 mg p.o. at noon on October 14. PRNs increased up to 1 mg p.o. b.i.d. on October 14. Reason for continued inpatient stay Substantial Risk for: inability to function, rapid decompensation and med/psych decompensation Time Spent With Patient Time: Total time managing care of this patient today _20___ minutes.
[2024-10-23 19:35] VITALS: BP 122/57; PULSE 91; TEMP 37.2; O2SAT 96
[2024-10-23] MEDS: Atorvastatin Calcium 10 MG TABLET PO (20:12)
[2024-10-24 07:00] VITALS: BMI 15.7
[2024-10-24 07:55] VITALS: BP 137/62; RESP 18; TEMP 36.3
--- NOTE | 2024-10-24 08:25 | HO.PSYCHPN ---
Subjective Subjective Date of Service: 10/24/24 Reason For Visit: Dementia Subjective Notes: Section 7 Interim History: Pt slept through the night. She is visible at times, pleasant. Talks in 3rd person, asking Imani needs help, what are we doing Imani? redirected, easily forgetful, with severe expressive and receptive aphasia. No combative behaviors, calmer and pleasant overall. She is taking medications as prescribed. VS stable. Review of Systems Review of Systems Unremarkable Mental Status Exam Mental Status Exam Patient Appearance: Appropriate Patient Orientation: Person and Situation Level of Consciousness: Awake Patient Behavior: Guarded and Passive Mood Description: Withdrawn Affect Description: Constricted Patient Cognition Impaired: Yes Ability to Follow Directions: Good Speech Pattern: Clear Memory Description: Immediate Impaired and Episodic Impaired Diagnostics Vital Signs (24Hr): Vital Signs - 24 hr 10/23/24 19:35 Temperature 98.9 F Pulse Rate 91 Blood Pressure 122/57 L Pulse Oximetry 96 Oxygen Delivery Method Room Air BMI result Body Mass Index 14.9 Labs 10/06/24 13:14 10/07/24 08:43 Medications Medications Current Medications Acetaminophen (Acetaminophen 325 Mg Tablet) 650 mg PO Q6H PRN PRN Reason: Headache/Pain Mild Scale (1-3) Last Admin: 09/16/24 16:25 Dose: 650 mg Al Hydroxide/Mg Hydroxide (Magnesium Hydrox/Alum Hydrox 30 Ml Oral.Susp) 30 ml PO Q6H PRN PRN Reason: Heartburn/Nausea Aspirin (Aspirin 81 Mg Tab.Chew) 81 mg PO DAILY [facility] Last Admin: 10/23/24 10:50 Dose: 81 mg Atorvastatin Calcium (Atorvastatin Calcium 10 Mg Tablet) 10 mg PO BEDTIME [facility] Last Admin: 10/23/24 20:12 Dose: 10 mg Famotidine (Famotidine 20 Mg Tablet) 20 mg PO DAILY [facility] Last Admin: 10/23/24 10:50 Dose: 20 mg Levofloxacin (Levofloxacin 250 Mg Tablet) 250 mg PO Q24H [facility] Stop: 10/24/24 08:59 Last Admin: 10/23/24 10:50 Dose: 250 mg Magnesium Hydroxide (Milk Of Magnesia 30 Ml Oral.Susp) 30 ml PO DAILY PRN PRN Reason: Constipation Memantine (Memantine Hcl 5 Mg Tablet) 5 mg PO BID [facility] Last Admin: 10/23/24 20:13 Dose: 5 mg Risperidone (Risperidone 1 Mg Tablet) 1 mg PO BEDTIME [facility] Last Admin: 10/23/24 20:12 Dose: 1 mg Risperidone (Risperidone 1 Mg Tablet) 1 mg PO BID PRN PRN Reason: Psychosis Last Admin: 10/14/24 21:19 Dose: 1 mg Risperidone (Risperidone 1 Mg Tablet) 1 mg PO DAILY@1230 [facility] Last Admin: 10/23/24 13:18 Dose: 1 mg Allergies Allergies Allergy/AdvReac Type Severity Reaction Status Date / Time No Known Allergies Allergy Verified 09/10/24 13:00 Assessment & Plan Assessment & Plan (1) Major neurocognitive disorder due to Alzheimer's disease: Status: Acute Code(s): G30.9 - Alzheimer's disease, unspecified; F02.80 - Dementia in other diseases classified elsewhere, unspecified severity, without behavioral disturbance, psychotic disturbance, mood disturbance, and anxiety Plan Ms. Wilder is a 78 year-old woman with advanced dementia, appears of AD type. She was admitted initially to medicine for treatment of UTI after being found wondering at 2am. She is not delirious. Her presentation is consistent with advanced dementia. She is not oriented to place, situation, month or date. Language deficits along with inability to retain any information to recognize herself in the mirrow or other objects. She has been on aricept but had diarrhea and she is also underweight. Had discussed with guardian while she was on the medical floor risperidone, added low dose clonazepam. PLAN 10/24- continue risperidone BID at scheduled times. may be dc tomorrow to memory unit. Reason for continued inpatient stay Substantial Risk for: inability to function Time Spent With Patient Time: Total time managing care of this patient today ____ minutes.
[2024-10-24] MEDS: Famotidine 20 MG TABLET PO (09:40)
[2024-10-24] MEDS: Memantine HCl 5 MG TABLET PO ×2 (09:40→20:13)
[2024-10-24] MEDS: Aspirin 81 MG TAB.CHEW PO (09:40)
[2024-10-24] MEDS: risperiDONE 1 MG TABLET PO ×2 (12:18→20:13)
[2024-10-24 19:17] VITALS: BP 101/51; PULSE 83; TEMP 36.2; O2SAT 95
[2024-10-24] MEDS: Atorvastatin Calcium 10 MG TABLET PO (20:13)
--- NOTE | 2024-10-25 08:11 | P.DS_ITS ---
DS: Providers Provider Date of Service: 10/25/24 Date of admission: 09/13/24 15:16 Date of discharge: 10/25/24 Primary care physician: Unknown Physician Consults: 10/06/24 12:26 Consult to Hospitalist Routine Comment: Consulting Provider: [facility] Hospitalists Reason For Exam: severe lethargy difficult to arouse no food 10/16/24 10:58 Consult to Hospitalist Routine Comment: Consulting Provider: [facility] Hospitalists Reason For Exam: another UTI Attending physician on discharge: Ricky Reed DS: Diagnosis Discharge Diagnosis (1) Major neurocognitive disorder due to Alzheimer's disease: Status: Acute (2) Delirium: Status: Acute DS: Medications Discharge Medications Home Medications: Previous Rx's ?Medication ?Instructions ?Recorded aspirin 81 mg chewable tablet 81 mg PO DAILY #30 tabs 10/24/24 atorvastatin 10 mg tablet 10 mg PO BEDTIME #30 tabs 10/24/24 famotidine 20 mg tablet 20 mg PO DAILY #30 tabs 10/24/24 memantine 5 mg tablet 5 mg PO BID #60 tabs 10/24/24 risperidone 1 mg tablet 1 mg PO BEDTIME #30 tabs 10/24/24 risperidone 1 mg tablet 1 mg PO DAILY@1230 #30 tabs 10/24/24 Mental Status Exam Mental Status Exam Patient Appearance: Appropriate Patient Orientation: Person Level of Consciousness: Awake Patient Behavior: Guarded and Passive Mood Description: Withdrawn Affect Description: Constricted Patient Cognition Impaired: Yes Ability to Follow Directions: Good Speech Pattern: Clear Hallucinations: None Delusions: Not Present Thought Process: Distracted and Slowed Thinking Thought Content: positive for [place] Judgement: Poor Data Data Completed and Pending Completed studies during hospitalization [Text1]: 10/15/24 Unknown Urine clean catch - Clean Catch Midstream Urine Culture - Final Pseudomonas aeruginosa Enterococcus faecalis 09/23/24 Unknown Urine clean catch - Clean Catch Midstream Urine Culture - Final Escherichia coli Enterococcus faecalis DS: Summary Hospital Course Hospital Course: Ms. Wilder is a 78 year-old woman with hx of advanced dementia who has been living on her own. She was brought via EMS after neighbor found her wondering at 2am. In the ED, pt was not able to provide any meaningful information as she was not oriented to place, situation, month or year. She had seen psych provider, Jessica Avila on 08/29/24 noted then to be oriented only to self. In the ED, medical work up include cbc without leukocytosis, only noted to have thrombocytosis. CMP without electrolyte abnormality, BUN 14, Cr 0.80 with creatinine clearance of 41.7. AST mildly elevated at 32, with elevated alkaline phos. 163. UA does show UTI positive for nitrites, leukocytosis, elevated WBC. culture positive for gram negative sulema. Pt was started on ceftriaxone 1gm IM q24h. She continues on oral ceftin. The patient was admitted into this facility for treatment of her delirium with antibiotics that resolved. She was assessed by the occupational therapist and it was clear the patient has very advanced dementia to the point that she is completely disoriented on place time and person. She was started on a low dose of Risperdal to target agitation and psychosis but eventually she got over-sedated. Again she was diagnosed again with a UTI and treated with Ceftin. The patient was able to tolerate Risperdal 1 mg in the afternoon and 1 mg at night with PRNs with for tolerability. While she was in the unit she was treated 3 times for UTI the last time with Levaquin with for improvement. The baseline functionality of the patient is very low, she is unable to do her own ADL less, we had several family meetings and we decided to transfer her to a long-term facility for continuation of care. Since there were no safety concerns discharge planning was discussed Time spent discussing smoking cessation with patient: 3 to 10 minutes Status at Discharge Cognitive/behavioral status at discharge: Very impaired at baseline Functional status at discharge: independent ambulation Overall status at discharge: patient is back to baseline Time Spent with Patient Time attestation: Total time managing care of this patient today __30__ minutes. Time spent: Less than 30 minutes Discharge Plan Discharge Anticipated Discharge Date/Time: 10/25/24 10:00 Patient Disposition: Home, Self-Care Discharge Diagnosis: Dementia Alzheimer's type Delirium resolved. Referrals: [facility] [Other] - 10/25/24 11:30 am (Imani will be picked up at [facility] 10/25 at 11:30 AM. [facility] is expecting Imani tomorrow and should have all of her medications at the facility before she arrives.) Azul Christianson MD [Physician] - 1 Week (This will be your new primary doctor through [facility]. No appointment has been made yet but it will be ,george with in the next few days. If you have any question or concerns please call Eloina Mustafa at [phone].) Discharge Medications: New atorvastatin 10 mg Tablet 10 mg PO BEDTIME Qty: 30 0RF famotidine 20 mg Tablet 20 mg PO DAILY Qty: 30 0RF aspirin 81 mg Tablet,Chewable 81 mg PO DAILY Qty: 30 0RF risperidone 1 mg Tablet 1 mg PO BEDTIME Qty: 30 0RF risperidone 1 mg Tablet 1 mg PO DAILY@1230 Qty: 30 0RF memantine 5 mg Tablet 5 mg PO BID Qty: 60 0RF Discontinued lorazepam 0.5 mg tablet 0.5 mg PO BID PRN (Reason: anxiety) 30 Days Qty: 60 1RF acetaminophen 650 mg Tablet Extended Release 650 mg PO DAILY PRN (Reason: Pain) olanzapine 5 mg Tablet 5 mg PO Q6H PRN (Reason: agitation) Qty: 30 0RF magnesium hydroxide [Milk of Magnesia] 400 mg/5 mL Suspension 30 ml PO DAILY PRN (Reason: Constipation) Qty: 30 0RF risperidone [Risperdal] 1 mg/mL Solution 1 mg PO BID Qty: 60 0RF mirtazapine 7.5 mg tablet 15 mg PO BEDTIME Qty: 30 0RF cefuroxime axetil 250 mg tablet 250 mg PO BID Qty: 6 0RF simvastatin 10 mg tablet 10 mg PO BEDTIME aspirin 81 mg tablet,delayed release (DR/EC) 81 mg PO DAILY hydroxyzine HCl 10 mg tablet 10 mg PO BEDTIME Discharge Orders: Discharge Order (Routine); Ordered 10/24/24 Ordered By: Angeles Augustin Diet: Regular diet Activity on Discharge: As tolerated Stand Alone Forms: Patient Portal Discharge page Print Language: Greek Care Plan Goals: Care plan goals achieved in this admission Health Concerns: Continue treatment with primary care physician and other outpatient providers. Plan of Treatment: Continue with outpatient psychiatric providers. Assessment: The patient is an elderly female with a long history of dementia that this severe and advanced who was brought from the community after she was wandering the streets grossly disorganized due to UTI. She was treated with antibiotics and she had 2 other episodes after that while she was in the unit with for improvement with antibiotics. At this moment she is severely impaired and transferred to the psychiatric hospitall[facility]term facility for continuation of care. At this moment there is no evidence of safety concerns.
[2024-10-25 10:03] VITALS: BP 120/62; PULSE 74; RESP 18; TEMP 36.6; O2SAT 98
--- NOTE | 2024-10-25 12:31 | PC.NURSE ---
Pt. alert and oriented to name only. Unaware of surroundings and unable to understand discharge. Rachelle signed for pt. valuables and for discharge paperwork to hand off to LONG TERM staff. Pt. ambulated off unit at 12:04 accompanied by this RN, RYAN, and lizzyece.
== END 2024-10-25 12:04 | disposition home or self-care (01) | DRG 57 ==
PROVIDERS: Psychiatry & Neurology Psychiatry; Admitting Provider Psychiatry & Neurology Psychiatry; Visit Provider Psychiatry & Neurology Psychiatry
DX: G30.9 Alzheimer's disease, unspecified (principal); F05 Delirium due to known physiological condition; N39.0 Urinary tract infection, site not specified; Z68.1 Body mass index [BMI] 19.9 or less, adult; F02.C0 Dementia in other diseases classified elsewhere, severe, without behavioral disturbance, psychotic disturbance, mood disturbance, and anxiety; B96.5 Pseudomonas (aeruginosa) (mallei) (pseudomallei) as the cause of diseases classified elsewhere; R63.6 Underweight; B96.20 Unspecified Escherichia coli [E. coli] as the cause of diseases classified elsewhere; B95.2 Enterococcus as the cause of diseases classified elsewhere; Z75.1 Person awaiting admission to adequate facility elsewhere; Z91.83 Wandering in diseases classified elsewhere; Z79.82 Long term (current) use of aspirin; Z79.899 Other long term (current) drug therapy
CPT/HCPCS: 36415; 80053; 80061; 81001; 85025; 87086; 87088; 87186; 92526; 92610

== ENCOUNTER → 2024-09-13 15:16 | Outpatient (BNV) | payer MEDICARE, SELFPAY | PROVIDERS: Admitting Provider Psychiatry & Neurology Psychiatry; Visit Provider Social Worker | DX: G30.9 Alzheimer's disease, unspecified (principal); F02.80 Dementia in other diseases classified elsewhere, unspecified severity, without behavioral disturbance, psychotic disturbance, mood disturbance, and anxiety; R53.83 Other fatigue | CPT/HCPCS: 90792; 99231; 99232 ==

== ENCOUNTER → 2024-09-13 15:16 | Outpatient (BNV) | payer MEDICARE, SELFPAY | PROVIDERS: Admitting Provider Psychiatry & Neurology Psychiatry; Visit Provider Psychiatry & Neurology Psychiatry | DX: G30.9 Alzheimer's disease, unspecified (principal); F02.80 Dementia in other diseases classified elsewhere, unspecified severity, without behavioral disturbance, psychotic disturbance, mood disturbance, and anxiety; R53.83 Other fatigue | CPT/HCPCS: 99231; 99232 ==

== ENCOUNTER 2025-01-07 20:11 | Emergency (ER) | payer MEDICARE, SELFPAY ==
--- NOTE | ~2025-01-07 | XR_ITS ---
CLINICAL HISTORY: o2 desaturation 1 view chest x-ray Comparison: None Findings: Mild bilateral pulmonary opacities nonspecific and may reflect pneumonitis including right infrahilar region. These are superimposed on chronic lung disease with moderate emphysematous changes. No pneumothorax or pleural effusion. Borderline cardiomegaly accentuated by AP technique. Degenerative changes include the imaged shoulders and AC joints. IMPRESSION: Mild pulmonary opacities concerning for pneumonitis/pneumonia, including right infrahilar region. Recommend attention on follow-up to ensure resolution. This document has been electronically signed by: Semaj Shin MD on 01/08/2025 00:46:05
[2025-01-07 20:16] VITALS: BP 118/44; BP 129/43; PULSE 79; PULSE 96; RESP 20; TEMP 36; O2SAT 93; O2SAT 95; BMI 16.1
[2025-01-07 20:31] LABS: Glucose, Whole Blood 107 mg/dL (60-115)
--- NOTE | 2025-01-07 21:37 | ECG_ITS ---
Test Reason : AMS Blood Pressure : */* mmHG Vent. Rate : 83 BPM Atrial Rate : 83 BPM P-R Int : 116 ms QRS Dur : 68 ms QT Int : 386 ms P-R-T Axes : 49 66 71 degrees QTcB Int : 453 ms Sinus rhythm with marked sinus arrhythmia Low voltage QRS Septal infarct , age undetermined Abnormal ECG When compared with ECG of 11-Sep-2024 15:10, Vent. rate has increased by 29 bpm Referred By: Jen Greco Electronically Signed By: PIERRE MEHTA MD
--- NOTE | 2025-01-07 21:44 | ED_ITS ---
HPI - General Adult General Chief complaint: General Medical Stated complaint: DEMENTIA, ALTERED MENTAL, LETHARGIC, DNR ORDERS Time Seen by Provider: 01/07/25 21:30 Source: patient Mode of arrival: ambulatory Limitations: other (Advanced dementia) History of Present Illness ED Provider: Dr. Jen Greco HPI narrative: Patient comes to the emergency room via ambulance from a dementia unit. According to EMS, the staff reported that the patient has not been herself for about a week, seems to be more lethargic than usual. EMS stated that they did not get any information about the patient's usual baseline. However, her current mental status is not usual for her. Patient is known to have Alzheimer's. Related Data Previous Rx's ?Medication ?Instructions ?Recorded aspirin 81 mg chewable tablet 81 mg PO DAILY #30 tabs 10/24/24 atorvastatin 10 mg tablet 10 mg PO BEDTIME #30 tabs 10/24/24 famotidine 20 mg tablet 20 mg PO DAILY #30 tabs 10/24/24 memantine 5 mg tablet 5 mg PO BID #60 tabs 10/24/24 risperidone 1 mg tablet 1 mg PO BEDTIME #30 tabs 10/24/24 risperidone 1 mg tablet 1 mg PO DAILY@1230 #30 tabs 10/24/24 aspirin 81 mg capsule 81 mg PO DAILY #30 caps 11/13/24 atorvastatin 10 mg tablet 10 mg PO BEDTIME #30 tabs 11/13/24 famotidine 10 mg tablet 10 mg PO DAILY #30 tabs 11/13/24 memantine 5 mg tablet 5 mg PO BID #60 tabs 11/13/24 risperidone 1 mg tablet 1 mg PO BID #60 tabs 11/13/24 cefuroxime axetil 250 mg tablet 250 mg PO BID #14 tabs 01/08/25 Allergies Allergy/AdvReac Type Severity Reaction Status Date / Time No Known Allergies Allergy Verified 01/07/25 20:19 Review of Systems 2 Review of Systems: Yes Other PMFSH Past Medical History Medical History Anxiety Cognitive disorder PVD (peripheral vascular disease) Chronic bronchitis Hyperlipidemia Diverticulosis Depression CKD (chronic kidney disease) Thrombocytosis Osteoporosis Smoker Surgical History Hx of colonoscopy Family History Family History Sister CAD (coronary artery disease) Father Melanoma Myocardial infarct Brother CHF (congestive heart failure) COPD (chronic obstructive pulmonary disease) Social History Social History Household Members: None Housing: Unknown / Unable to assess Do you presently have visiting nurse or other home services: No (unable to answer) Unable to assess alcohol history related to: Unable to respond Alcohol intake: never Comment: 5-min checks Patient Tobacco Use Status: Tobacco use Unknown Second Hand Smoke Exposure: No (lives alone) Advance Directives: No Advance Directives Information Provided: No service: No Sexual orientation: Straight/Heterosexual Physical Exam ED Vital Signs: Vital Signs - 24 hr 01/07/25 20:16 Temperature 96.8 F Pulse Rate 96 Respiratory Rate 20 Blood Pressure 129/43 L Pulse Oximetry 93 Oxygen Delivery Method Room Air BMI result Body Mass Index 16.1 Const Other: Appearance: On arrival, patient alert, very talkative, not making any sense. At this time, sleeping Eyes: Pupils equal, round and reactive to light. ENT: Pharynx normal. Neck: Normal inspection. Neck supple. No lymph nodes noted. No crepitus CVS: Normal heart rate and rhythm. Pulses normal. Normal S1 and S2 Respiratory: No respiratory distress. Breath sounds normal. No Wheezing. No rales Abdomen: Soft and nontender. No rigidity. No distention. Skin: Skin warm and dry. Normal skin color. Normal skin turgor. Extremities: No lower extremity edema. No Lacerations. No Rash Neuro: On arrival, cranial nerves 2-12 grossly intact, unable to participate in full assessment Psych: Very talkative and feisty, now asleep Course Course Course Narrative: All of patient's vitals are stable Labs spent Medications Administered Discontinued Medications Generic Name Dose Route Start Last Admin Trade Name Freq PRN Reason Stop Dose Admin Ceftriaxone Sodium 1 gm/ 0 gm 01/08/25 00:06 01/08/25 00:49 Lidocaine HCl 2.1 ml IM 01/08/25 00:07 1 kit ONCE ONE Administration Medical Decision Making Medical Decision Making MDM Narrative: Patient's white blood cell count slightly elevated at 12 point 7. Normal chemistry, UTI positive While patient was sleeping, patient had an oxygen saturation. Once she was awake, her oxygen increased back to the mid 90s with the oxygen. Patient likely has sleep apnea I reviewed patient's sensitivity/microbiology reports 4 urinalysis: Patient is pretty much sensitive to all antibiotics except tetracycline Patient was given the 1st dose of antibiotics, ceftriaxone with lidocaine My interpretation of x-rays did not show any acute infiltrates. According to the radiology report, patient has pneumonitis versus pneumonia. However, this is a common report from radiology for every chest x-ray report. Clinically, patient has no cough, no fever, unlikely to be pneumonia Patient's oxygen saturation sometimes rubs when she is sleeping and O2 increases immediately when patient wakes up. Patient likely has undiagnosed sleep apnea Differential Diagnosis Differential Diagnoses: The differential diagnosis associated with the presentation includes (UTI, viral syndrome) Admission/Observation Consideration of admission/observation: Escalation of care including admission/observation considered (Given age and patient's symptoms, observation was considered) Lab Data MDM Lab Attestation statement: I reviewed the patient's lab results. 01/07/25 22:43 01/07/25 22:43 Labs: Lab Results 01/07/25 01/07/25 01/07/25 Range/Units 20:27 22:12 22:43 WBC 12.7 H (4.8-10.8) X10*3/uL RBC 4.77 (4.20-5.50) X10*6/uL Hgb 13.8 (12.0-16.0) g/dl Hct 43.7 (37.0-47.0) % MCV 91.6 (80.0-98.0) fL MCH 28.9 (27.0-33.0) pg MCHC 31.6 (31.0-35.0) g/dl RDW 13.7 (11.0-16.0) % Plt Count 703 H D (160-400) X10*3/uL MPV 8.7 L (9.4-12.3) fL Immature Gran % (Auto) 0.4 (0.0-0.4) % Neut % (Auto) 81.3 H (45-73) % Lymph % (Auto) 12.9 L (20-40) % [place] % (Auto) 4.9 (2-11) % Eos % (Auto) 0.1 (0-4) % Baso % (Auto) 0.4 (0-2) % Lymph # (Auto) 1.6 (1.2-4.9) X10*3/uL [place] # (Auto) 0.6 (0.1-1.2) X10*3/uL Eos # (Auto) 0.0 (0.0-0.4) X10*3/uL Baso # (Auto) 0.1 (0.0-0.2) X10*3/uL Abs Immat Gran (auto) 0.05 H (0.00-0.03) X10*3/uL Absolute Neuts (auto) 10.3 H (2.0-8.3) x10*3/uL Absolute Nucleated RBC 0.000 (0.0-0.012) X10*3/uL Nucleated RBC % (auto) 0.0 (0.0-0.2) /100WBC Sodium 137 (135-145) mmol/L Potassium 4.5 D (3.3-5.1) mmol/L Chloride 105 (96-108) mmol/L Carbon Dioxide 22 (22-29) mmol/L Anion Gap 15 (12-20) BUN 29 H (9-16) mg/dL Creatinine 1.03 (0.5-1.4) mg/dL Estim Creat Clear Calc 31.2 Estimated GFR 52 POC Glucose 107 (60-115) mg/dL Random Glucose 104 (60-115) mg/dL Calcium 7.7 L D (8.4-10.2) mg/dL Total Bilirubin 0.3 (0.0-1.0) mg/dL Direct Bilirubin 0.2 (0.0-0.5) mg/dL AST 47 H (5-31) U/L ALT 32 H (0-31) U/L Alkaline Phosphatase 259 H (39-117) U/L Troponin I High Sens 8.4 (<3.5-17.0) ng/L Total Protein 6.4 L (6.5-8.0) g/dL Albumin 2.7 L (3.5-5.0) g/dL Urine Color Yellow Urine Appearance Turbid Urine pH 6.0 (5.0-9.0) Ur Specific Ronald 1.015 (1.005-1.025) Urine Protein 300 (3+) H (Neg-Trace) mg/dL Urine Glucose (UA) Negative (Negative) mg/dL Urine Ketones Trace (Negative) mg/dL Urine Blood Moderate (2+) H (Negative) Urine Nitrite Negative (Negative) Ur Leukocyte Esterase Large (3+) H (Negative) Urine RBC >20 H (0-2) /HPF Urine WBC >50 H (0-5) /HPF Ur Squamous Epith Cells 0-2 (0-2) /HPF Urine Bacteria 4+ (None Seen) Hyaline Casts 3-5 (0-2) /LPF Urine Opiates Screen Not Detected (Not Detect) Ur Buprenorphine Scrn Not Detected (Not Detect) ng/mL Ur Oxycodone Screen Not Detected (Not Detect) ng/mL Urine Methadone Screen Not Detected (Not Detect) ng/mL Urine Fentanyl Screen Not Detected (Not Detect) Ur Barbiturates Screen Not Detected (Not Detect) Ur Phencyclidine Scrn Not Detected (Not Detect) Ur Amphetamines Screen Not Detected (Not Detect) U Benzodiazepines Scrn Not Detected (Not Detect) Urine Cocaine Screen Not Detected (Not Detect) U Marijuana (THC) Screen Not Detected (Not Detect) Influenza Type A (PCR) NEGATIVE (Negative) Influenza Type B (PCR) NEGATIVE (Negative) RSV RNA Qual (PCR) NEGATIVE (Negative) SARS-CoV-2 RNA (RT-PCR) NEGATIVE (Negative) Critical Care Time Critical Care Time Critical Care Time: Yes Total Critical Care Time: 35 Attestation: I have personally provided critical care time. Time includes review of lab data, radiology results, discussion with consultants, and monitoring for potential decompensation. Intervention performed as documented. Discharge Plan Discharge Clinical Impression: Urinary tract infection Patient Disposition: Home, Self-Care Instructions: Urinary Tract Infection in Older Adults (ED) Additional Instructions: Please follow-up with your primary care physician tomorrow. If you have any worsening or new symptoms, please return to the emergency room or call 911 Prescriptions: New cefuroxime axetil 250 mg tablet 250 mg PO BID Qty: 14 0RF No Action atorvastatin 10 mg Tablet 10 mg PO BEDTIME Qty: 30 0RF famotidine 20 mg Tablet 20 mg PO DAILY Qty: 30 0RF aspirin 81 mg Tablet,Chewable 81 mg PO DAILY Qty: 30 0RF risperidone 1 mg Tablet 1 mg PO BEDTIME Qty: 30 0RF risperidone 1 mg Tablet 1 mg PO DAILY@1230 Qty: 30 0RF memantine 5 mg Tablet 5 mg PO BID Qty: 60 0RF risperidone 1 mg tablet 1 mg PO BID Qty: 60 1RF memantine 5 mg tablet 5 mg PO BID Qty: 60 0RF aspirin 81 mg capsule 81 mg PO DAILY Qty: 30 0RF atorvastatin 10 mg tablet 10 mg PO BEDTIME Qty: 30 0RF famotidine 10 mg tablet 10 mg PO DAILY Qty: 30 0RF Print Language: Colombian
[2025-01-07 22:50] LABS: MANUAL DIFF FLAG NO
[2025-01-07 23:04] LABS: Basophils Absolute Auto 0.1 X10*3/uL (0.0-0.2); Basophils Percent Auto 0.4 % (0-2); Eosinophils Percent Auto 0.1 % (0-4); Hematocrit 43.7 % (37.0-47.0); Hemoglobin 13.8 g/dl (12.0-16.0); Imm Gran Abs Auto 0.05 X10*3/uL (0.00-0.03); Imm Gran Pct Auto 0.4 % (0.0-0.4); Lymphocytes Absolute Auto 1.6 X10*3/uL (1.2-4.9); Lymphocytes Percent Auto 12.9 % (20-40); Mean Corpuscular HGB Conc 31.6 g/dl (31.0-35.0); Mean Corpuscular Hemoglobin 28.9 pg (27.0-33.0); Mean Corpuscular Volume 91.6 fL (80.0-98.0); Mean Platelet Volume 8.7 fL (9.4-12.3); Monocytes Absolute Auto 0.6 X10*3/uL (0.1-1.2); Monocytes Percent Auto 4.9 % (2-11); Neutrophils Absolute Auto 10.3 x10*3/uL (2.0-8.3); Neutrophils Percent Auto 81.3 % (45-73); Platelet Count 703 X10*3/uL (160-400); Red Blood Count 4.77 X10*6/uL (4.20-5.50); Red Cell Distribution Width 13.7 % (11.0-16.0); White Blood Count 12.7 X10*3/uL (4.8-10.8)
[2025-01-07 23:05] LABS: Appearance Urine Turbid; Color Urine Yellow; Glucose Urine UA Negative (Negative); Leukocyte Esterase Urine Large (3+) (Negative); Nitrite Urine Negative (Negative); Specific Gravity - Urine 1.015 (1.005-1.025); UMIC TRIGGER UACC YES; Urine Blood Moderate (2+) (Negative); Urine Ketones Trace mg/dL (Negative); Urine Protein 300 (3+) mg/dL (Neg-Trace)
[2025-01-07 23:08] LABS: Alanine Aminotransferase 32 U/L (0-31); Albumin Level 2.7 g/dL (3.5-5.0); Alkaline Phosphatase 259 U/L (39-117); Amphetamine Screen Urine Not Detected (Not Detect); Anion Gap 15 (12-20); Aspartate Amino Transferase 47 U/L (5-31); Barbiturates, Urine Not Detected (Not Detect); Benzodiazepines Screen Urine Not Detected (Not Detect); Bilirubin Direct 0.2 mg/dL (0.0-0.5); Bilirubin Total 0.3 mg/dL (0.0-1.0); Blood Urea Nitrogen 29 mg/dL (9-16); Buprenorphine Scr Not Detected (Not Detect); Calcium 7.7 mg/dL (8.4-10.2); Cannabinoid Screen Urine Not Detected (Not Detect); Carbon Dioxide 22 mmol/L (22-29); Chloride 105 mmol/L (96-108); Cocaine Screen Urine Not Detected (Not Detect); Creatinine Clr Calc Pharmacy 31.2; Estimated Glomerular Filt Rate 52; Fentanyl, urine Not Detected (Not Detect); Glucose Random 104 mg/dL (60-115); Methadone Screen, Urine Not Detected (Not Detect); Opiate Screen Urine Not Detected (Not Detect); Oxycodone Screen Urine Not Detected (Not Detect); Phencyclidine Screen Urine Not Detected (Not Detect); Potassium 4.5 mmol/L (3.3-5.1); Sodium 137 mmol/L (135-145); Total Protein 6.4 g/dL (6.5-8.0)
[2025-01-07 23:15] LABS: Troponin-I High Sensitivity 8.4 ng/L (<3.5-17.0)
[2025-01-07 23:23] LABS: Bacteria Urine 4+ (None Seen); RBC Urine >20 /HPF (0-2); Squamous Epithelial Cell Urine 0-2 /HPF (0-2); UACC Culture Trigger YES; WBC Urine >50 /HPF (0-5)
[2025-01-07 23:43] LABS: Influenza A PCR NEGATIVE (Negative); Influenza B PCR NEGATIVE (Negative); Resp Syncy Virus RNA Qual PCR NEGATIVE (Negative); SARS COV2 PCR INHOUSE NEGATIVE (Negative)
[2025-01-08] MEDS: cefTRIAXone sodium 1 GM, Lidocaine HCl 1 % MPF 2.1 ML IM (00:49)
[2025-01-08 01:41] VITALS: BP 139/50; PULSE 66; RESP 10; TEMP 36.3; O2SAT 95
[2025-01-08 03:50] VITALS: BP 113/44; PULSE 57; RESP 16; O2SAT 97
[2025-01-08 05:17] VITALS: BP 115/40; PULSE 60; RESP 12; TEMP 36.9; O2SAT 96
== END 2025-01-08 05:20 | disposition home or self-care (01) ==
PROVIDERS: Emergency Provider Emergency Medicine; PCP Internal Medicine
DX: N39.0 Urinary tract infection, site not specified (principal); G30.9 Alzheimer's disease, unspecified; F02.80 Dementia in other diseases classified elsewhere, unspecified severity, without behavioral disturbance, psychotic disturbance, mood disturbance, and anxiety; I49.8 Other specified cardiac arrhythmias; R41.82 Altered mental status, unspecified; R53.83 Other fatigue; Z66 Do not resuscitate; Z79.899 Other long term (current) drug therapy; Z51.81 Encounter for therapeutic drug level monitoring; Z03.818 Encounter for observation for suspected exposure to other biological agents ruled out
CPT/HCPCS: 0241U; 36415; 71045; 80048; 80076; 80307; 81001; 81003; 82947; 84484; 85025; 87086; 87088; 93005; 96372; 99284; J0696; J2003

== ENCOUNTER → 2025-01-07 21:37 | Outpatient (BNV) | payer MEDICARE, SELFPAY | PROVIDERS: Emergency Provider Emergency Medicine; PCP Internal Medicine; Visit Provider Internal Medicine Cardiovascular Disease | DX: I49.9 Cardiac arrhythmia, unspecified (principal) | CPT/HCPCS: 93010 ==

== ENCOUNTER → 2025-01-08 00:11 | Outpatient (BNV) | payer MEDICARE, SELFPAY | PROVIDERS: Emergency Provider Emergency Medicine; PCP Internal Medicine; Visit Provider Radiology Neuroradiology | DX: R41.82 Altered mental status, unspecified (principal) | CPT/HCPCS: 71045 ==